=== PATIENT | male | born 1935 | race African-American/Black ===

== ENCOUNTER 2017-12-13 21:20 | Inpatient (IN) | payer MEDICARE, MEDICAID ==
[~2017-12-13] VITALS: Ht 185.4 cm; Wt 108.0 kg
[~2017-12-13 21:20] MED LIST: BIMA2.5D4 EACHEYE; CHOL200010 PO; CLON0.1T PO; CYCL30DR EACHEYE; DOCU-150 PO; DONE5TAB7 PO; DOXA4TAB3 PO; DUTA0.5C2 PO; FERR-63 PO; GABA600T PO; HYDR100T26 PO; INSU100I19 SQ; LIDO700A TP; LORA-249 PO; NATE60TA PO; NIFE90TA43 PO; OMEP20TA2 PO; OMEP40CA34 PO; OXYC-100 GT; PREG75CA PO
[2017-12-13] MEDS ORDERED: NITROGLYCERIN 0.4MG TABLET SL SL PRN (22:15)
[2017-12-13] MEDS ORDERED: ASPIRIN 81MG TABLET PO ONE (22:15)
[2017-12-13 23:30] LABS: BASOPHILS % 0.5 % (0.0-2.0); EOSINOPHILS % 2.5 % (0.0-5.0); HEMATOCRIT. 34.3 % (42.0-52.0); HEMOGLOBIN. 11.4 g/dL (14.0-18.0); LYMPHOCYTES % 28.6 % (20.0-50.0); MEAN CORPUSCULAR HEMOGLOBIN 29.2 pg (28.0-32.0); MEAN CORPUSCULAR VOLUME 88.1 fL (80.0-94.0); MEAN PLATELET VOLUME 8.9 fl (7.4-10.4); NEUTROPHILS % 59.4 % (40.0-76.0); PLATELET 139 x1000/uL (130-400); RED BLOOD CELL COUNT 3.89 mill/uL (4.7-6.1); RED CELL DISTRIBUTION WIDTH 15.6 % (11.6-14.6)
[2017-12-13 23:44] LABS: CHLORIDE 108 mEq/L (98-107)
[2017-12-13] MEDS ORDERED: KETOROLAC 15MG/ML VIAL IV ONE (23:45)
[2017-12-14 03:20] VITALS: BP 136/50
[2017-12-14 04:00] VITALS: BP 136/50
[2017-12-14] MEDS ORDERED: DEXTROSE 50% WATER 50ML SYRINGE IV PRN ×2 (06:00→07:45)
[2017-12-14] MEDS ORDERED: HYDROCODONE/ACETAMINOPHEN 10/325MG TABLET PO PRN (06:00)
[2017-12-14] MEDS: BLOOD SUGAR DIAGNOSTIC STRIP TEST SCH ×4 (07:40→20:11)
[2017-12-14] MEDS ORDERED: BLOOD SUGAR DIAGNOSTIC STRIP TEST SCH (07:40)
[2017-12-14 08:00] VITALS: BP 161/70
[2017-12-14] MEDS: INSULIN LISPRO 100 UNITS/ML SUBCUT SCH ×4 (08:10→20:14)
[2017-12-14] MEDS: ENOXAPARIN 40MG/0.4ML SYR SUBCUT SCH (09:23)
[2017-12-14] MEDS ORDERED: OXYCODONE HCL 10MG TABLET SR 12HR PO PRN (11:45)
[2017-12-14 12:00] VITALS: BP 154/67
[2017-12-14] MEDS: NIFEDIPINE XL 90MG TAB PO SCH (12:30)
[2017-12-14] MEDS: OXYCODONE HCL 5MG TABLET PO PRN (13:19)
[2017-12-14 16:00] VITALS: BP 157/73
[2017-12-14] MEDS: GABAPENTIN 300MG CAPSULE PO SCH ×2 (16:08→20:10)
[2017-12-14 20:00] VITALS: BP 153/64
[2017-12-14] MEDS: HYDRALAZINE HCL 25MG TABLET PO SCH (20:11)
[2017-12-15] VITALS: BP 157/66
[2017-12-15] MEDS: GABAPENTIN 300MG CAPSULE PO SCH ×4 (03:56→21:17)
[2017-12-15 04:00] VITALS: BP 175/71
[2017-12-15] MEDS: BLOOD SUGAR DIAGNOSTIC STRIP TEST SCH ×4 (06:55→21:21)
[2017-12-15] MEDS: ENOXAPARIN 40MG/0.4ML SYR SUBCUT SCH (08:21)
[2017-12-15] MEDS: NIFEDIPINE XL 90MG TAB PO SCH (08:21)
[2017-12-15] MEDS: HYDRALAZINE HCL 25MG TABLET PO SCH ×2 (08:22→21:17)
[2017-12-15] MEDS: INSULIN LISPRO 100 UNITS/ML SUBCUT SCH ×4 (08:22→21:00)
[2017-12-15] MEDS: OXYCODONE HCL 5MG TABLET PO PRN ×2 (08:30→21:32)
[2017-12-15] MEDS ORDERED: REGADENOSON 0.4 MG/5 ML IV NR (11:00)
[2017-12-15 12:00] VITALS: BP 156/60
[2017-12-15] MEDS: ASPIRIN 81MG TABLET PO SCH (12:31)
[2017-12-15 16:00] VITALS: BP 135/62
[2017-12-15 20:10] VITALS: BP 134/66
[2017-12-15] MEDS ORDERED: ATORVASTATIN CALCIUM 40MG TABLET PO SCH (21:00)
[2017-12-16 00:11] VITALS: BP 146/67
[2017-12-16] MEDS: GABAPENTIN 300MG CAPSULE PO SCH ×2 (03:01→10:13)
[2017-12-16 04:20] VITALS: BP 133/65
[2017-12-16] MEDS: BLOOD SUGAR DIAGNOSTIC STRIP TEST SCH (06:18)
[2017-12-16 07:56] VITALS: BP 155/67
[2017-12-16] MEDS ORDERED: REGADENOSON 0.4 MG/5 ML IV ONE (08:58)
[2017-12-16] MEDS: HYDRALAZINE HCL 25MG TABLET PO SCH (10:12)
[2017-12-16] MEDS: ASPIRIN 81MG TABLET PO SCH (10:12)
[2017-12-16] MEDS: NIFEDIPINE XL 90MG TAB PO SCH (10:13)
[2017-12-16] MEDS: ENOXAPARIN 40MG/0.4ML SYR SUBCUT SCH (10:14)
[2017-12-16] MEDS: INSULIN LISPRO 100 UNITS/ML SUBCUT SCH (10:25)
[2017-12-16 12:35] VITALS: BP 141/66
[2017-12-16 12:38] VITALS: BP 141/66
== END 2017-12-16 13:48 | disposition home or self-care (01) | DRG 205 ==
LOC: ER 21:20 → 7WST 12-14 00:17 → EDBEDREQ 12-14 00:19 → ENRESERV 12-14 02:06
PROVIDERS: ADMIT Internal Medicine; ATTEND Internal Medicine
DX: M94.0 Chondrocostal junction syndrome [Tietze] (principal); I50.33 Acute on chronic diastolic (congestive) heart failure; E11.42 Type 2 diabetes mellitus with diabetic polyneuropathy; D64.9 Anemia, unspecified; E78.5 Hyperlipidemia, unspecified; I11.0 Hypertensive heart disease with heart failure; I25.10 Atherosclerotic heart disease of native coronary artery without angina pectoris; Z79.4 Long term (current) use of insulin; Z79.899 Other long term (current) drug therapy; Z79.1 Long term (current) use of non-steroidal anti-inflammatories (NSAID); Z79.2 Long term (current) use of antibiotics; N18.3 Chronic kidney disease, stage 3 (moderate)
CPT/HCPCS: 36415; 71045; 78452; 80053; 80061; 82962; 83880; 84484; 85025; 93005; 93017; 93306; 96374; 99285; A9500; J1650; J1815; J1885; J2785

== ENCOUNTER 2018-07-08 09:47 | Inpatient (IN) | payer MEDICARE, MEDICAID ==
[2018-07-08] VITALS (11 sets, daily range): BP systolic 149–176; BP diastolic 55–80
[~2018-07-08] VITALS: Ht 175.5 cm; Wt 117.2 kg
[2018-07-08 10:49] LABS: CLARITY URINE CLEAR (CLEAR); COLOR URINE YELLOW (YELLOW); KETONES URINE 1+ (NEGATIVE); LEUKOCYTE ESTERASE URINE NEGATIVE (NEGATIVE); NITRITE URINE NEGATIVE (NEGATIVE); OCCULT BLOOD URINE 2+ (NEGATIVE); PROTEIN URINE 4+ (NEGATIVE); SPECIFIC GRAVITY URINE 1.023 (1.005-1.030)
[2018-07-08 10:52] LABS: BG BASE EXCESS -6.5 mmol/L (-2.0-2.0); BG DEOXYHEMOGLOBIN 3.4 % (0.0-5.0); BG FRACTION INSPIRED OXYGEN 21; BG HCO3 ACT 17.9 mmol/L (22.0-26.0); BG METHEMOGLOBIN 0.2 % (0.0-1.5); BG OXYGEN SATURATION 96.6 % (92.0-98.5); BG OXYHEMOGLOBIN 95.4 % (94.0-97.0); BG PCO2 32.2 mmHg (35.0-45.0); BG PH 7.362 (7.350-7.450); BG PO2 89.5 mmHg (75.0-100.0); BG SAMPLE SITE RIGHT BRACHIAL; BG TOTAL HEMOGLOBIN 13.3 g/dL (12.0-18.0); BG VENT MODE ROOM AIR
[2018-07-08 11:20] LABS: METHADONE URINE SCREEN NEGATIVE (NEGATIVE); OPIATES URINE SCREEN NEGATIVE (NEGATIVE)
[2018-07-08 11:21] LABS: *AMPHETAMINES SCREEN URINE NEGATIVE (NEGATIVE); *BARBITURATES SCREEN URINE NEGATIVE (NEGATIVE); *COCAINE SCREEN URINE NEGATIVE (NEGATIVE); CANNABINOID URINE SCREEN NEGATIVE (NEGATIVE); PHENCYCLIDINE URINE SCREEN NEGATIVE (NEGATIVE)
[2018-07-08 11:22] LABS: BASOPHILS % 0.4 % (0.0-2.0); HEMATOCRIT. 38.4 % (42.0-52.0); HEMOGLOBIN. 12.8 g/dL (14.0-18.0); LYMPHOCYTES % 13.3 % (20.0-50.0); MEAN PLATELET VOLUME 9.1 fl (7.4-10.4); MONOCYTES % 8.8 % (2.0-8.0); NEUTROPHILS % 77.5 % (40.0-76.0); PLATELET 168 x1000/uL (130-400); RED BLOOD CELL COUNT 4.41 mill/uL (4.7-6.1); RED CELL DISTRIBUTION WIDTH 15.1 % (11.6-14.6)
[2018-07-08 11:22] LABS: *BENZODIAZEPINES SCREEN URINE NEGATIVE (NEGATIVE)
[2018-07-08 11:30] LABS: CHLORIDE 107 mEq/L (98-107)
[2018-07-08 11:33] LABS: ETHANOL BLOOD < 10 mg/dL
[2018-07-08 11:34] LABS: PROTHROMBIN TIME 10.7 sec (9.6-11.0)
[2018-07-08 11:37] LABS: CREATINE KINASE 415 IU/L (39-308)
[2018-07-08] MEDS ORDERED: VANCOMYCIN 1 G PREMIX 200 ML IV ONE (11:45)
[2018-07-08] MEDS ORDERED: PIPERACILLIN/TAZ 3.375G PREMIX 50 ML IV ONE (11:45)
[2018-07-08] MEDS ORDERED: SODIUM CHLORIDE 0.9% 1000ML BAG (SEPSIS BOLUS) IV ONE (11:45)
[2018-07-08] MEDS ORDERED: HYDRALAZINE 20MG/ML VIAL IV ONE (12:00)
[2018-07-08] MEDS ORDERED: LABETALOL 5MG/ML SYR 20 MG/4 ML SYRINGE IV SCH (13:45)
[2018-07-08] MEDS ORDERED: NICARDIPINE 50 MG in SODIUM CHLORIDE 0.9% 230 ML IV PRN (15:00)
[2018-07-08] MEDS ORDERED: NICARDIPINE 40MG/200ML PREMIX 200 ML IV NR ×2 (15:30→20:00)
[2018-07-08] MEDS ORDERED: DOCUSATE SODIUM 100MG CAPSULE PO PRN (17:00)
[2018-07-08] MEDS ORDERED: GUAIFENESIN 200MG/10ML SUGAR FREE UDC PO PRN (17:00)
[2018-07-08] MEDS ORDERED: IPRATROPIUM/ALBUTEROL 0.5-3(2.5)MG/3ML NEB INH PRN (17:00)
[2018-07-08] MEDS ORDERED: LORAZEPAM 2MG/ML CPJ IV PRN (17:00)
[2018-07-08] MEDS ORDERED: HYDROCODONE/ACETAMINOPHEN 5/325MG TABLET PO PRN (17:00)
[2018-07-08] MEDS ORDERED: DEXTROSE 50% WATER 50ML SYRINGE IV PRN (17:00)
[2018-07-08] MEDS ORDERED: HYDROMORPHONE HCL/PF 2MG/ML CPJ IV PRN (17:00)
[2018-07-08] MEDS ORDERED: ONDANSETRON HCL 4MG/2ML INJ IV PRN (17:00)
[2018-07-08] MEDS ORDERED: PIPERACILLIN/TAZ 3.375G PREMIX 50 ML IV SCH (17:00)
[2018-07-08 17:15] LABS: T4 FREE 1.34 ng/dL (0.76-1.46)
[2018-07-08 17:44] LABS: FOLIC ACID (FOLATE) SERUM >20 ng/mL ng/mL (>5.38)
[2018-07-08 17:55] LABS: VITAMIN B12 SERUM 534 pg/mL (211-911)
[2018-07-08] MEDS: BLOOD SUGAR DIAGNOSTIC STRIP TEST SCH ×2 (18:51→21:00)
[2018-07-08] MEDS: ENOXAPARIN 40MG/0.4ML SYR SUBCUT SCH (19:01)
[2018-07-08] MEDS: INSULIN LISPRO 100 UNITS/ML SUBCUT SCH ×2 (19:05→21:00)
[2018-07-08] MEDS: SODIUM CHLORIDE 0.9% INJ 3ML FLUSH IVF SCH (21:48)
[2018-07-08] MEDS: NICARDIPINE 50 MG in SODIUM CHLORIDE 0.9% 230 ML IV PRN (22:31)
[2018-07-08] MEDS: PIPERACILLIN/TAZ 2.25G PREMIX 50 ML IV SCH (22:36)
[2018-07-09] VITALS (73 sets, daily range): BP systolic 98–166; BP diastolic 39–125
[2018-07-09] MEDS: NICARDIPINE 50 MG in SODIUM CHLORIDE 0.9% 230 ML IV PRN ×2 (02:18→14:13)
[2018-07-09] MEDS: SODIUM CHLORIDE 0.9% INJ 3ML FLUSH IVF SCH ×3 (05:20→21:03)
[2018-07-09 06:02] LABS: BASOPHILS % 0.4 % (0.0-2.0); EOSINOPHILS % 0.5 % (0.0-5.0); HEMOGLOBIN. 11.9 g/dL (14.0-18.0); LYMPHOCYTES % 16.9 % (20.0-50.0); MEAN CORPUSCULAR HEMOGLOBIN 29.2 pg (28.0-32.0); MEAN CORPUSCULAR VOLUME 88.4 fL (80.0-94.0); MONOCYTES % 10.3 % (2.0-8.0); NEUTROPHILS % 71.9 % (40.0-76.0); RED BLOOD CELL COUNT 4.07 mill/uL (4.7-6.1); RED CELL DISTRIBUTION WIDTH 15.3 % (11.6-14.6)
[2018-07-09 06:13] LABS: CHLORIDE 113 mEq/L (98-107)
[2018-07-09] MEDS: PIPERACILLIN/TAZ 2.25G PREMIX 50 ML IV SCH ×3 (06:14→23:19)
[2018-07-09 06:26] LABS: CREATINE KINASE 474 IU/L (39-308); T4 FREE 1.28 ng/dL (0.76-1.46)
[2018-07-09 06:29] LABS: CREATINE KINASE MB FRACTION 7.8 ng/mL (0.5-3.6)
[2018-07-09] MEDS ORDERED: NIFEDIPINE XL 60MG TAB PO SCH (10:45)
[2018-07-09 11:40] LABS: MEAN PLATELET VOLUME 9.6 fl (7.4-10.4); PLATELET 128 x1000/uL (130-400)
[2018-07-09] MEDS: INSULIN LISPRO 100 UNITS/ML SUBCUT SCH ×2 (12:00→17:07)
[2018-07-09] MEDS: BLOOD SUGAR DIAGNOSTIC STRIP TEST SCH ×2 (12:00→18:53)
[2018-07-09] MEDS: AMLODIPINE 10MG TABLET PO SCH (13:11)
[2018-07-09] MEDS: SODIUM CHLORIDE 0.45% 1,000 ML IV SCH ×2 (13:13→21:03)
[2018-07-09] MEDS ORDERED: VANCOMYCIN 1 G PREMIX 200 ML IV NR (14:00)
[2018-07-09] MEDS: HYDRALAZINE HCL 50MG TABLET PO SCH ×2 (14:25→21:02)
[2018-07-09] MEDS: DOCUSATE SODIUM SUGAR FREE 100MG/10ML UDC PO SCH ×2 (14:26→17:00)
[2018-07-09] MEDS: ENOXAPARIN 40MG/0.4ML SYR SUBCUT SCH (18:53)
[2018-07-09] MEDS ORDERED: DOXAZOSIN MESYLATE 2MG TABLET PO SCH (21:00)
[2018-07-10] VITALS (33 sets, daily range): BP systolic 147–180; BP diastolic 59–109
[2018-07-10] MEDS: INSULIN LISPRO 100 UNITS/ML SUBCUT SCH ×5 (00:08→23:23)
[2018-07-10] MEDS: BLOOD SUGAR DIAGNOSTIC STRIP TEST SCH ×5 (00:09→23:11)
[2018-07-10] MEDS: HYDRALAZINE 20MG/ML VIAL IV PRN ×3 (02:48→21:29)
[2018-07-10] MEDS: SODIUM CHLORIDE 0.9% INJ 3ML FLUSH IVF SCH ×3 (05:47→22:00)
[2018-07-10 05:50] LABS: BASOPHILS % 0.6 % (0.0-2.0); EOSINOPHILS % 1.4 % (0.0-5.0); HEMATOCRIT. 33.7 % (42.0-52.0); HEMOGLOBIN. 11.1 g/dL (14.0-18.0); LYMPHOCYTES % 18.7 % (20.0-50.0); MEAN CORPUSCULAR HEMOGLOBIN 28.8 pg (28.0-32.0); MEAN CORPUSCULAR VOLUME 87.6 fL (80.0-94.0); MONOCYTES % 9.1 % (2.0-8.0); NEUTROPHILS % 70.2 % (40.0-76.0); PLATELET 133 x1000/uL (130-400); RED BLOOD CELL COUNT 3.84 mill/uL (4.7-6.1); RED CELL DISTRIBUTION WIDTH 15.5 % (11.6-14.6)
[2018-07-10] MEDS: HYDRALAZINE HCL 50MG TABLET PO SCH (05:55)
[2018-07-10] MEDS: PIPERACILLIN/TAZ 2.25G PREMIX 50 ML IV SCH ×3 (06:24→23:10)
[2018-07-10] MEDS: AMLODIPINE 10MG TABLET PO SCH (08:28)
[2018-07-10] MEDS: DOCUSATE SODIUM SUGAR FREE 100MG/10ML UDC PO SCH ×2 (08:28→16:58)
[2018-07-10] MEDS ORDERED: VANCOMYCIN 1250MG in DEXTROSE 5% WATER 250ML IV SCH ×2 (09:00→13:00)
[2018-07-10] MEDS: SODIUM CHLORIDE 0.45% 1,000 ML IV SCH ×5 (09:33→23:10)
[2018-07-10] MEDS: NEBIVOLOL HCL 5 MG TABLET PO SCH (10:23)
[2018-07-10] MEDS: ACETAMINOPHEN 325MG TABLET PO PRN (12:43)
[2018-07-10] MEDS: HYDRALAZINE HCL 100MG TABLET PO SCH ×2 (13:43→21:41)
[2018-07-10 15:10] LABS: ANTI-NUCLEAR ANTIBODIES DIRECT Negative (Negative)
[2018-07-10] MEDS: CLONIDINE 0.1MG TABLET PO PRN (16:58)
[2018-07-10] MEDS: ENOXAPARIN 40MG/0.4ML SYR SUBCUT SCH (16:59)
[2018-07-10] MEDS: DOXAZOSIN MESYLATE 2MG TABLET PO SCH (21:40)
[2018-07-11] VITALS (47 sets, daily range): BP systolic 128–178; BP diastolic 57–86
[2018-07-11] MEDS: CLONIDINE 0.1MG TABLET PO PRN (02:53)
[2018-07-11 05:43] LABS: BASOPHILS % 0.7 % (0.0-2.0); EOSINOPHILS % 2.1 % (0.0-5.0); HEMATOCRIT. 33.1 % (42.0-52.0); LYMPHOCYTES % 16.5 % (20.0-50.0); MEAN CORPUSCULAR HEMOGLOBIN 29.1 pg (28.0-32.0); MEAN CORPUSCULAR VOLUME 87.5 fL (80.0-94.0); MONOCYTES % 7.7 % (2.0-8.0); RED BLOOD CELL COUNT 3.78 mill/uL (4.7-6.1); RED CELL DISTRIBUTION WIDTH 15.5 % (11.6-14.6)
[2018-07-11] MEDS: HYDRALAZINE 20MG/ML VIAL IV PRN ×2 (05:47→11:37)
[2018-07-11] MEDS: SODIUM CHLORIDE 0.9% INJ 3ML FLUSH IVF SCH ×3 (05:47→21:41)
[2018-07-11] MEDS: HYDRALAZINE HCL 100MG TABLET PO SCH ×3 (05:47→21:41)
[2018-07-11] MEDS: BLOOD SUGAR DIAGNOSTIC STRIP TEST SCH ×4 (06:35→21:41)
[2018-07-11] MEDS: PIPERACILLIN/TAZ 2.25G PREMIX 50 ML IV SCH ×3 (06:42→22:21)
[2018-07-11] MEDS: INSULIN LISPRO 100 UNITS/ML SUBCUT SCH ×4 (06:43→21:49)
[2018-07-11 07:57] LABS: PLATELET 134 x1000/uL (130-400)
[2018-07-11 08:21] LABS: COMPLEMENT C3 117 mg/dL (82-167)
[2018-07-11] MEDS: DOCUSATE SODIUM SUGAR FREE 100MG/10ML UDC PO SCH ×3 (09:31→18:26)
[2018-07-11] MEDS: NEBIVOLOL HCL 5 MG TABLET PO SCH (09:31)
[2018-07-11] MEDS: AMLODIPINE 10MG TABLET PO SCH (09:32)
[2018-07-11] MEDS: ENOXAPARIN 40MG/0.4ML SYR SUBCUT SCH (18:26)
[2018-07-11] MEDS: NYSTATIN POWDER 15GM TOP SCH (18:27)
[2018-07-11] MEDS: DOXAZOSIN MESYLATE 2MG TABLET PO SCH (21:41)
[2018-07-12] VITALS (13 sets, daily range): BP systolic 139–167; BP diastolic 59–98
[2018-07-12] MEDS: PIPERACILLIN/TAZ 2.25G PREMIX 50 ML IV SCH ×3 (05:48→22:00)
[2018-07-12] MEDS: SODIUM CHLORIDE 0.9% INJ 3ML FLUSH IVF SCH ×3 (05:52→21:07)
[2018-07-12] MEDS: HYDRALAZINE HCL 100MG TABLET PO SCH ×3 (05:53→20:49)
[2018-07-12] MEDS: BLOOD SUGAR DIAGNOSTIC STRIP TEST SCH ×4 (08:00→20:42)
[2018-07-12] MEDS: AMLODIPINE 10MG TABLET PO SCH (08:00)
[2018-07-12] MEDS: DOCUSATE SODIUM SUGAR FREE 100MG/10ML UDC PO SCH ×2 (09:00→17:38)
[2018-07-12] MEDS: NYSTATIN POWDER 15GM TOP SCH ×3 (09:00→18:14)
[2018-07-12] MEDS: INSULIN LISPRO 100 UNITS/ML SUBCUT SCH ×4 (09:16→21:05)
[2018-07-12] MEDS: NEBIVOLOL HCL 5 MG TABLET PO SCH (09:18)
[2018-07-12] MEDS: CLONIDINE 0.1MG TABLET PO PRN (11:17)
[2018-07-12] MEDS ORDERED: VANCOMYCIN 1 G PREMIX 200 ML IV SCH (12:00)
[2018-07-12] MEDS: ENOXAPARIN 40MG/0.4ML SYR SUBCUT SCH (17:39)
[2018-07-12] MEDS: MAGNESIUM/ALUMINUM HYDROXIDE/SIMETHICONE 30ML UDC PO PRN (18:11)
[2018-07-12] MEDS: DOXAZOSIN MESYLATE 2MG TABLET PO SCH (20:43)
[2018-07-13] VITALS (12 sets, daily range): BP systolic 132–161; BP diastolic 54–78
[2018-07-13] MEDS: SODIUM CHLORIDE 0.9% INJ 3ML FLUSH IVF SCH ×3 (06:16→21:18)
[2018-07-13] MEDS: PIPERACILLIN/TAZ 2.25G PREMIX 50 ML IV SCH ×3 (06:16→22:55)
[2018-07-13 06:38] LABS: BASOPHILS % 0.5 % (0.0-2.0); EOSINOPHILS % 4.5 % (0.0-5.0); HEMATOCRIT. 31.4 % (42.0-52.0); HEMOGLOBIN. 10.4 g/dL (14.0-18.0); MEAN CORPUSCULAR VOLUME 87.1 fL (80.0-94.0); MEAN PLATELET VOLUME 8.9 fl (7.4-10.4); MONOCYTES % 9.4 % (2.0-8.0); NEUTROPHILS % 62.6 % (40.0-76.0); PLATELET 143 x1000/uL (130-400); RED CELL DISTRIBUTION WIDTH 15.5 % (11.6-14.6)
[2018-07-13] MEDS: INSULIN LISPRO 100 UNITS/ML SUBCUT SCH ×4 (07:30→21:26)
[2018-07-13] MEDS: HYDRALAZINE HCL 100MG TABLET PO SCH ×3 (07:47→22:55)
[2018-07-13] MEDS: BLOOD SUGAR DIAGNOSTIC STRIP TEST SCH ×4 (08:09→21:18)
[2018-07-13] MEDS: AMLODIPINE 10MG TABLET PO SCH (08:11)
[2018-07-13] MEDS: NEBIVOLOL HCL 5 MG TABLET PO SCH ×2 (08:11→21:18)
[2018-07-13] MEDS: NYSTATIN POWDER 15GM TOP SCH ×3 (08:12→17:33)
[2018-07-13] MEDS: DOCUSATE SODIUM SUGAR FREE 100MG/10ML UDC PO SCH ×2 (08:12→09:00)
[2018-07-13] MEDS: DOCUSATE SODIUM 100MG CAPSULE PO SCH (17:33)
[2018-07-13] MEDS: ENOXAPARIN 40MG/0.4ML SYR SUBCUT SCH (17:33)
[2018-07-13] MEDS: DOXAZOSIN MESYLATE 2MG TABLET PO SCH (21:17)
[2018-07-13] MEDS: ACETAMINOPHEN 325MG TABLET PO PRN (21:29)
[2018-07-13] MEDS: VANCOMYCIN 1 G PREMIX 200 ML IV SCH (22:56)
[2018-07-14] VITALS (12 sets, daily range): BP systolic 98–160; BP diastolic 59–75
[2018-07-14] MEDS: CLONIDINE 0.1MG TABLET PO PRN (05:28)
[2018-07-14] MEDS: HYDRALAZINE HCL 100MG TABLET PO SCH ×3 (06:33→21:58)
[2018-07-14] MEDS: PIPERACILLIN/TAZ 2.25G PREMIX 50 ML IV SCH ×3 (06:33→22:34)
[2018-07-14] MEDS: SODIUM CHLORIDE 0.9% INJ 3ML FLUSH IVF SCH ×2 (06:34→22:01)
[2018-07-14] MEDS: BLOOD SUGAR DIAGNOSTIC STRIP TEST SCH ×4 (07:39→21:59)
[2018-07-14] MEDS: NEBIVOLOL HCL 5 MG TABLET PO SCH ×2 (08:13→21:00)
[2018-07-14] MEDS: DOCUSATE SODIUM 100MG CAPSULE PO SCH ×2 (08:16→17:38)
[2018-07-14 08:17] LABS: BASOPHILS % 1.1 % (0.0-2.0); EOSINOPHILS % 5.2 % (0.0-5.0); HEMOGLOBIN. 10.4 g/dL (14.0-18.0); LYMPHOCYTES % 28.3 % (20.0-50.0); MEAN CORPUSCULAR HEMOGLOBIN 29.2 pg (28.0-32.0); MEAN CORPUSCULAR VOLUME 86.8 fL (80.0-94.0); MONOCYTES % 9.7 % (2.0-8.0); NEUTROPHILS % 55.7 % (40.0-76.0); PLATELET 140 x1000/uL (130-400); RED BLOOD CELL COUNT 3.57 mill/uL (4.7-6.1); RED CELL DISTRIBUTION WIDTH 15.3 % (11.6-14.6)
[2018-07-14] MEDS: AMLODIPINE 10MG TABLET PO SCH (08:17)
[2018-07-14] MEDS: INSULIN LISPRO 100 UNITS/ML SUBCUT SCH ×4 (08:22→22:00)
[2018-07-14] MEDS: NYSTATIN POWDER 15GM TOP SCH ×3 (10:44→17:45)
[2018-07-14] MEDS: ENOXAPARIN 40MG/0.4ML SYR SUBCUT SCH (17:38)
[2018-07-14] MEDS: DOXAZOSIN MESYLATE 2MG TABLET PO SCH (21:00)
[2018-07-15] VITALS (9 sets, daily range): BP systolic 140–159; BP diastolic 66–77
[2018-07-15] MEDS: MAGNESIUM/ALUMINUM HYDROXIDE/SIMETHICONE 30ML UDC PO PRN ×2 (05:03→09:48)
[2018-07-15] MEDS: HYDRALAZINE HCL 100MG TABLET PO SCH ×2 (05:04→14:33)
[2018-07-15] MEDS: SODIUM CHLORIDE 0.9% INJ 3ML FLUSH IVF SCH ×2 (05:05→14:00)
[2018-07-15 06:15] LABS: BASOPHILS % 0.6 % (0.0-2.0); HEMOGLOBIN. 10.3 g/dL (14.0-18.0); LYMPHOCYTES % 22.7 % (20.0-50.0); MEAN CORPUSCULAR HEMOGLOBIN 28.8 pg (28.0-32.0); MEAN CORPUSCULAR VOLUME 86.5 fL (80.0-94.0); MEAN PLATELET VOLUME 8.9 fl (7.4-10.4); MONOCYTES % 9.2 % (2.0-8.0); NEUTROPHILS % 62.5 % (40.0-76.0); PLATELET 158 x1000/uL (130-400); RED BLOOD CELL COUNT 3.58 mill/uL (4.7-6.1); RED CELL DISTRIBUTION WIDTH 15.1 % (11.6-14.6)
[2018-07-15] MEDS: PIPERACILLIN/TAZ 2.25G PREMIX 50 ML IV SCH (07:02)
[2018-07-15] MEDS: BLOOD SUGAR DIAGNOSTIC STRIP TEST SCH ×2 (08:01→13:00)
[2018-07-15] MEDS: DOCUSATE SODIUM 100MG CAPSULE PO SCH (09:39)
[2018-07-15] MEDS: AMLODIPINE 10MG TABLET PO SCH (09:41)
[2018-07-15] MEDS: NYSTATIN POWDER 15GM TOP SCH ×2 (09:41→13:51)
[2018-07-15] MEDS: INSULIN LISPRO 100 UNITS/ML SUBCUT SCH ×2 (09:43→13:50)
[2018-07-15] MEDS: NEBIVOLOL HCL 5 MG TABLET PO SCH (09:47)
[2018-07-15] MEDS: VANCOMYCIN 1 G PREMIX 200 ML IV SCH (11:16)
== END 2018-07-15 15:30 | disposition home or self-care (01) | DRG 871 ==
LOC: ER 09:54 → EDBEDREQTM 13:35 → EDBEDREQSVC 13:35 → EDBEDREQ 13:35 → CVICU 13:44 → EDBEDREQSVC 13:51 → EDBEDREQ 13:51 → ENRESERV 15:49 → CANRESERV 15:49 → EDBEDREQTM 16:59 → EDBEDREQSVC 16:59 → ENRESERV 20:48 → CVICU 21:51 → 5EST 07-11 13:05
PROVIDERS: ADMIT Internal Medicine; ATTEND Internal Medicine
PROC: 4B02XSZ Measurement of Cardiac Pacemaker, External Approach (ICD-10-PCS; principal; 2018-07-09)
PROC: 4A00X4Z Measurement of Central Nervous Electrical Activity, External Approach (ICD-10-PCS; 2018-07-09)
DX: A41.9 Sepsis, unspecified organism (principal); N17.0 Acute kidney failure with tubular necrosis; G92 Toxic encephalopathy; I63.9 Cerebral infarction, unspecified; M62.82 Rhabdomyolysis; I50.40 Unspecified combined systolic (congestive) and diastolic (congestive) heart failure; E44.0 Moderate protein-calorie malnutrition; E87.2 Acidosis; I13.0 Hypertensive heart and chronic kidney disease with heart failure and stage 1 through stage 4 chronic kidney disease, or unspecified chronic kidney disease; N18.4 Chronic kidney disease, stage 4 (severe); I16.0 Hypertensive urgency; E11.22 Type 2 diabetes mellitus with diabetic chronic kidney disease; E11.40 Type 2 diabetes mellitus with diabetic neuropathy, unspecified; E86.9 Volume depletion, unspecified; F02.80 Dementia in other diseases classified elsewhere, unspecified severity, without behavioral disturbance, psychotic disturbance, mood disturbance, and anxiety; E86.0 Dehydration; G20 Parkinson's disease; H40.9 Unspecified glaucoma; I25.10 Atherosclerotic heart disease of native coronary artery without angina pectoris; I48.0 Paroxysmal atrial fibrillation; K21.9 Gastro-esophageal reflux disease without esophagitis; N40.0 Benign prostatic hyperplasia without lower urinary tract symptoms; Z95.0 Presence of cardiac pacemaker; Z79.4 Long term (current) use of insulin; Z79.899 Other long term (current) drug therapy
CPT/HCPCS: 36415; 36600; 71045; 74176; 80048; 80202; 80305; 80307; 80320; 80329; 82140; 82375; 82550; 82553; 82570; 82607; 82746; 82805; 82962; 83036; 83605; 83735; 83880; 84134; 84145; 84156; 84439; 84443; 84481; 84484; 86038; 86160; 92610; 93005; 93306; 93970; 96365; 96366; 96367; 96375; 97116; 97163; 97166; 97530; 99291; J0360; J1650; J1815; J2543; J3370; J3490; J7030; J7050; J7060; G0480

== ENCOUNTER 2018-10-09 09:53 | Inpatient (IN) | payer MEDICARE, MEDICAID ==
[~2018-10-09] VITALS: Ht 172.7 cm; Wt 133.8 kg
[2018-10-09] VITALS (30 sets, daily range): BP systolic 84–168; BP diastolic 49–99
[2018-10-09] MEDS ORDERED: SODIUM CHLORIDE 0.9% 1000ML BAG (SEPSIS BOLUS) IV ONE (10:15)
[2018-10-09 10:39] LABS: CHLORIDE 107 mEq/L (98-107); INR 1.2; PROTHROMBIN TIME 12.3 sec (9.6-11.0)
[2018-10-09 10:43] LABS: ETHANOL BLOOD < 10 mg/dL
[2018-10-09] MEDS ORDERED: PIPERACILLIN/TAZOBACTAM 3.375GM/50ML PREMIX IV ONE (10:45)
[2018-10-09 10:50] LABS: BG BASE EXCESS -6.4 mmol/L (-2.0-2.0); BG CARBOXYHEMOGLOBIN 0.6 % (0.5-1.5); BG DEOXYHEMOGLOBIN 6.1 % (0.0-5.0); BG FRACTION INSPIRED OXYGEN 28; BG HCO3 ACT 15.6 mmol/L (22.0-26.0); BG METHEMOGLOBIN 0.2 % (0.0-1.5); BG OXYGEN SATURATION 93.9 % (92.0-98.5); BG OXYHEMOGLOBIN 93.1 % (94.0-97.0); BG PCO2 22.4 mmHg (35.0-45.0); BG PO2 65.6 mmHg (75.0-100.0); BG SAMPLE SITE LEFT BRACHIAL; BG VENT MODE NASAL CANNULA
[2018-10-09 10:52] LABS: BASOPHILS % 0.2 % (0.0-2.0); HEMATOCRIT. 37.3 % (42.0-52.0); HEMOGLOBIN. 12.8 g/dL (14.0-18.0); LYMPHOCYTES % 9.4 % (20.0-50.0); MEAN CORPUSCULAR HEMOGLOBIN 30.3 pg (28.0-32.0); MEAN CORPUSCULAR VOLUME 88.3 fL (80.0-94.0); MONOCYTES % 7.9 % (2.0-8.0); NEUTROPHILS % 82.5 % (40.0-76.0); RED BLOOD CELL COUNT 4.23 mill/uL (4.7-6.1)
[2018-10-09] MEDS: LEVOFLOXACIN 750MG PREMIX 150 ML IV ONE ×2 (10:54→11:22)
[2018-10-09] MEDS ORDERED: IPRATROPIUM/ALBUTEROL 0.5-3(2.5)MG/3ML NEB HHN ONE (11:00)
[2018-10-09] MEDS ORDERED: METHYLPREDNISOLONE SOD SUCC 125 MG/2 ML VIAL IV ONE (11:00)
[2018-10-09 11:11] LABS: PLATELET 185 x1000/uL (130-400)
[2018-10-09] MEDS ORDERED: PIPERACILLIN/TAZ 2.25G PREMIX 50 ML IV ONE (11:15)
[2018-10-09 11:24] LABS: CLARITY URINE CLEAR (CLEAR); COLOR URINE YELLOW (YELLOW); KETONES URINE NEGATIVE (NEGATIVE); LEUKOCYTE ESTERASE URINE NEGATIVE (NEGATIVE); NITRITE URINE NEGATIVE (NEGATIVE); OCCULT BLOOD URINE NEGATIVE (NEGATIVE); PROTEIN URINE 3+ (NEGATIVE); SPECIFIC GRAVITY URINE 1.016 (1.005-1.030); UROBILINOGEN URINE 0.2 E.U./dL (0.2-1.0)
[2018-10-09 12:18] LABS: *AMPHETAMINES SCREEN URINE NEGATIVE (NEGATIVE); CANNABINOID URINE SCREEN NEGATIVE (NEGATIVE); METHADONE URINE SCREEN NEGATIVE (NEGATIVE); OPIATES URINE SCREEN NEGATIVE (NEGATIVE); PHENCYCLIDINE URINE SCREEN NEGATIVE (NEGATIVE)
[2018-10-09 12:19] LABS: *BARBITURATES SCREEN URINE NEGATIVE (NEGATIVE)
[2018-10-09 12:20] LABS: *BENZODIAZEPINES SCREEN URINE NEGATIVE (NEGATIVE)
[2018-10-09 12:21] LABS: *COCAINE SCREEN URINE NEGATIVE (NEGATIVE)
[2018-10-09] MEDS ORDERED: ACETAMINOPHEN 650MG SUPP PR PRN (14:45)
[2018-10-09] MEDS ORDERED: SODIUM BICARBONATE 8.4% 1 MEQ/ML 50ML SYR IV ONE (15:15)
[2018-10-09 15:18] LABS: BG BASE EXCESS -11.6 mmol/L (-2.0-2.0); BG CARBOXYHEMOGLOBIN 0.7 % (0.5-1.5); BG DEOXYHEMOGLOBIN 4.3 % (0.0-5.0); BG FRACTION INSPIRED OXYGEN 32; BG HCO3 ACT 12.8 mmol/L (22.0-26.0); BG METHEMOGLOBIN 0.1 % (0.0-1.5); BG OXYGEN SATURATION 95.7 % (92.0-98.5); BG OXYHEMOGLOBIN 94.9 % (94.0-97.0); BG PCO2 25.2 mmHg (35.0-45.0); BG PH 7.324 (7.350-7.450); BG PO2 79.5 mmHg (75.0-100.0); BG SAMPLE SITE LEFT BRACHIAL; BG TOTAL HEMOGLOBIN 11.5 g/dL (12.0-18.0); BG VENT MODE NASAL CANNULA
[2018-10-09] MEDS ORDERED: ONDANSETRON HCL 4MG/2ML INJ IV PRN (15:45)
[2018-10-09] MEDS ORDERED: LORAZEPAM 2MG/ML CPJ IV PRN (15:45)
[2018-10-09] MEDS ORDERED: GUAIFENESIN 200MG/10ML SUGAR FREE UDC PO PRN (15:45)
[2018-10-09] MEDS ORDERED: DOCUSATE SODIUM 100MG CAPSULE PO PRN (15:45)
[2018-10-09] MEDS ORDERED: DIPHENHYDRAMINE 50MG/ML VIAL IV PRN (15:45)
[2018-10-09] MEDS ORDERED: MAGNESIUM/ALUMINUM HYDROXIDE/SIMETHICONE 30ML UDC PO PRN (15:45)
[2018-10-09] MEDS ORDERED: HYDROMORPHONE HCL/PF 2MG/ML CPJ IV PRN (15:45)
[2018-10-09] MEDS ORDERED: ENOXAPARIN 30MG/0.3ML SYR SUBCUT SCH (17:00)
[2018-10-09] MEDS ORDERED: DEXTROSE 50% WATER 50ML SYRINGE IV PRN (17:30)
[2018-10-09] MEDS: BLOOD SUGAR DIAGNOSTIC STRIP TEST SCH ×2 (17:50→20:41)
[2018-10-09] MEDS ORDERED: PIPERACILLIN/TAZOBACTAM 2.25 G in DEXT 5% WATER 100 ML IV SCH (18:00)
[2018-10-09] MEDS ORDERED: VANCOMYCIN 1500MG in DEXTROSE 5% WATER 250ML IV SCH (18:00)
[2018-10-09] MEDS: PROPOFOL 10MG/ML 100ML 100 ML IV PRN ×2 (18:24→21:23)
[2018-10-09] MEDS ORDERED: SODIUM BICARBONATE 100 MEQ in DEXT 5%/0.2% NACL 1,000 ML IV SCH (18:30)
[2018-10-09] MEDS: INSULIN LISPRO 100 UNITS/ML SUBCUT SCH ×2 (18:56→20:41)
[2018-10-09 19:01] LABS: BG BASE EXCESS -12.3 mmol/L (-2.0-2.0); BG CARBOXYHEMOGLOBIN 0.3 % (0.5-1.5); BG DEOXYHEMOGLOBIN 5.2 % (0.0-5.0); BG FRACTION INSPIRED OXYGEN 60; BG METHEMOGLOBIN 0.4 % (0.0-1.5); BG OXYGEN SATURATION 94.8 % (92.0-98.5); BG OXYHEMOGLOBIN 94.1 % (94.0-97.0); BG PCO2 45.3 mmHg (35.0-45.0); BG PH 7.165 (7.350-7.450); BG PO2 87.5 mmHg (75.0-100.0); BG SAMPLE SITE RIGHT RADIAL; BG TIDAL VOLUME(mL) 550 mL; BG TOTAL HEMOGLOBIN 12.8 g/dL (12.0-18.0); BG VENT MODE VENT - A/C; BG VENT RATE 14 set
[2018-10-09] MEDS ORDERED: SODIUM BICARBONATE 8.4% 1 MEQ/ML 50ML SYR IV NR (19:15)
[2018-10-09] MEDS: IPRATROPIUM BROMIDE (0.02%) 0.5MG/2.5ML NEB HHN SCH (20:06)
[2018-10-09 20:57] LABS: CREATINE KINASE 460 IU/L (39-308)
[2018-10-09] MEDS: SODIUM CHLORIDE 0.9% INJ 3ML FLUSH IVF SCH (21:55)
[2018-10-09] MEDS: PIPERACILLIN/TAZOBACTAM 2.25 G in DEXTROSE 5% WATER 50 ML IV SCH (23:18)
[2018-10-09 23:28] LABS: CREATINE KINASE MB FRACTION 4.3 ng/mL (0.5-3.6)
[2018-10-10] VITALS (97 sets, daily range): BP systolic 93–168; BP diastolic 50–108
[2018-10-10] MEDS ORDERED: PIPERACILLIN/TAZOBACTAM 2.25 G in DEXT 5% WATER 100 ML IV SCH ×2
[2018-10-10] MEDS: PROPOFOL 10MG/ML 100ML 100 ML IV PRN ×3 (01:42→08:17)
[2018-10-10] MEDS: IPRATROPIUM BROMIDE (0.02%) 0.5MG/2.5ML NEB HHN SCH ×4 (02:07→20:17)
[2018-10-10 05:02] LABS: HEMATOCRIT. 34.7 % (42.0-52.0); HEMOGLOBIN. 11.3 g/dL (14.0-18.0); MEAN CORPUSCULAR HEMOGLOBIN 29.2 pg (28.0-32.0); MEAN CORPUSCULAR VOLUME 89.6 fL (80.0-94.0); MEAN PLATELET VOLUME 9.2 fl (7.4-10.4); PLATELET 102 x1000/uL (130-400); RED BLOOD CELL COUNT 3.88 mill/uL (4.7-6.1); RED CELL DISTRIBUTION WIDTH 15.6 % (11.6-14.6)
[2018-10-10] MEDS: PIPERACILLIN/TAZOBACTAM 2.25 G in DEXTROSE 5% WATER 50 ML IV SCH ×3 (05:02→18:15)
[2018-10-10 05:04] LABS: CHLORIDE 105 mEq/L (98-107)
[2018-10-10 05:16] LABS: CREATINE KINASE MB FRACTION 4.1 ng/mL (0.5-3.6)
[2018-10-10 05:17] LABS: CREATINE KINASE 414 IU/L (39-308); PHOSPHORUS 2.7 mg/dL (2.5-4.9); T4 FREE 1.16 ng/dL (0.76-1.46)
[2018-10-10] MEDS: SODIUM CHLORIDE 0.9% INJ 3ML FLUSH IVF SCH ×3 (06:19→22:00)
[2018-10-10 07:16] LABS: PLATELET ESTIMATE DECREASED
[2018-10-10] MEDS: BLOOD SUGAR DIAGNOSTIC STRIP TEST SCH ×4 (07:50→21:00)
[2018-10-10] MEDS: INSULIN LISPRO 100 UNITS/ML SUBCUT SCH ×4 (08:51→21:50)
[2018-10-10] MEDS ORDERED: ENOXAPARIN 40MG/0.4ML SYR SUBCUT SCH (09:00)
[2018-10-10] MEDS ORDERED: MAGNESIUM 2 G PREMIX 50 ML IV SCH (10:00)
[2018-10-10 10:24] LABS: BG CARBOXYHEMOGLOBIN 0.3 % (0.5-1.5); BG DEOXYHEMOGLOBIN 2.4 % (0.0-5.0); BG FRACTION INSPIRED OXYGEN 60; BG HCO3 ACT 22.5 mmol/L (22.0-26.0); BG METHEMOGLOBIN 0.1 % (0.0-1.5); BG OXYGEN SATURATION 97.6 % (92.0-98.5); BG OXYHEMOGLOBIN 97.2 % (94.0-97.0); BG PCO2 37.1 mmHg (35.0-45.0); BG SAMPLE SITE RIGHT RADIAL; BG TIDAL VOLUME(mL) 550 mL; BG TOTAL HEMOGLOBIN 11.4 g/dL (12.0-18.0); BG VENT MODE VENT - A/C; BG VENT RATE 20 set
[2018-10-10] MEDS ORDERED: LIDOCAINE HCL 1% 20ML VIAL (Pyxis) INJ ONE ×2 (10:29→12:42)
[2018-10-10] MEDS: PANTOPRAZOLE SODIUM 40 MG/VIAL IV SCH (10:51)
[2018-10-10] MEDS: SODIUM BICARBONATE 50 MEQ in DEXT 5%/0.2% NACL 1,000 ML IV SCH ×2 (10:52→21:41)
[2018-10-10] MEDS ORDERED: VANCOMYCIN 500 MG PREMIX 100 ML IV SCH (11:00)
[2018-10-10] MEDS: MIDAZOLAM HCL 50 MG in DEXTROSE 5% WATER 40 ML IV PRN ×2 (12:32→23:27)
[2018-10-10] MEDS ORDERED: HEPARIN 1000 UNITS/ML 10ML ONE (12:41)
[2018-10-10] MEDS ORDERED: SODIUM BICARBONATE 4% (2.4MEQ) 5ML VIAL IV ONE (12:41)
[2018-10-10] MEDS ORDERED: VANCOMYCIN 1 G PREMIX 200 ML IV SCH (13:00)
[2018-10-10] MEDS: FENTANYL CITRATE/PF 500 MCG in SODIUM CHLORIDE 0.9% 40 ML IV PRN (19:57)
[2018-10-11] VITALS (66 sets, daily range): BP systolic 96–158; BP diastolic 46–101
[2018-10-11] MEDS: PIPERACILLIN/TAZOBACTAM 2.25 G in DEXTROSE 5% WATER 50 ML IV SCH ×4 (00:50→17:16)
[2018-10-11] MEDS: IPRATROPIUM BROMIDE (0.02%) 0.5MG/2.5ML NEB HHN SCH ×4 (02:24→20:04)
[2018-10-11 05:48] LABS: HEMATOCRIT. 25.6 % (42.0-52.0); HEMOGLOBIN. 8.6 g/dL (14.0-18.0); MEAN CORPUSCULAR HEMOGLOBIN 29.3 pg (28.0-32.0); MEAN CORPUSCULAR VOLUME 86.9 fL (80.0-94.0); MEAN PLATELET VOLUME 8.8 fl (7.4-10.4); PLATELET 84 x1000/uL (130-400); RED BLOOD CELL COUNT 2.95 mill/uL (4.7-6.1); RED CELL DISTRIBUTION WIDTH 15.2 % (11.6-14.6)
[2018-10-11 05:49] LABS: CHLORIDE 101 mEq/L (98-107)
[2018-10-11 05:58] LABS: PHOSPHORUS 2.2 mg/dL (2.5-4.9)
[2018-10-11] MEDS: SODIUM CHLORIDE 0.9% INJ 3ML FLUSH IVF SCH ×3 (06:00→22:00)
[2018-10-11] MEDS: SODIUM BICARBONATE 50 MEQ in DEXT 5%/0.2% NACL 1,000 ML IV SCH (06:57)
[2018-10-11] MEDS: BLOOD SUGAR DIAGNOSTIC STRIP TEST SCH ×4 (07:50→21:55)
[2018-10-11 08:06] LABS: NUCLEATED RED BLOOD CELLS 1 /100 WBC
[2018-10-11 08:07] LABS: PLATELET ESTIMATE DECREASED
[2018-10-11] MEDS: INSULIN LISPRO 100 UNITS/ML SUBCUT SCH ×4 (08:20→22:10)
[2018-10-11] MEDS: PANTOPRAZOLE SODIUM 40 MG/VIAL IV SCH (09:02)
[2018-10-11 09:06] LABS: BG BASE EXCESS 4.3 mmol/L (-2.0-2.0); BG CARBOXYHEMOGLOBIN 0.3 % (0.5-1.5); BG DEOXYHEMOGLOBIN 1.7 % (0.0-5.0); BG FRACTION INSPIRED OXYGEN 40; BG HCO3 ACT 28.7 mmol/L (22.0-26.0); BG METHEMOGLOBIN 0.3 % (0.0-1.5); BG OXYGEN SATURATION 98.3 % (92.0-98.5); BG OXYHEMOGLOBIN 97.7 % (94.0-97.0); BG PCO2 42.7 mmHg (35.0-45.0); BG PH 7.446 (7.350-7.450); BG PO2 135.3 mmHg (75.0-100.0); BG SAMPLE SITE RIGHT RADIAL; BG TIDAL VOLUME(mL) 550 mL; BG VENT MODE VENT - A/C; BG VENT RATE 20 set
[2018-10-11] MEDS: MIDAZOLAM HCL 50 MG in DEXTROSE 5% WATER 40 ML IV PRN ×2 (10:46→21:19)
[2018-10-11] MEDS ORDERED: SODIUM PHOS,M-BASIC-D-BASIC 30 MM in DEXT 5% WATER 500 ML IV NR (13:30)
[2018-10-11] MEDS: DEXT 5%/0.9% NACL 1,000 ML IV SCH (13:54)
[2018-10-11] MEDS: IPRATROPIUM/ALBUTEROL 0.5-3(2.5)MG/3ML NEB HHN PRN (16:10)
[2018-10-11] MEDS: FENTANYL CITRATE/PF 500 MCG in SODIUM CHLORIDE 0.9% 40 ML IV PRN (19:13)
[2018-10-11] MEDS ORDERED: EPOETIN ALFA 10000UNITS/ML VIAL SUBCUT NR (21:00)
[2018-10-12] VITALS (72 sets, daily range): BP systolic 121–155; BP diastolic 61–96
[2018-10-12] MEDS: IPRATROPIUM BROMIDE (0.02%) 0.5MG/2.5ML NEB HHN SCH ×4 (00:30→20:10)
[2018-10-12] MEDS: PIPERACILLIN/TAZOBACTAM 2.25 G in DEXTROSE 5% WATER 50 ML IV SCH ×4 (00:49→18:29)
[2018-10-12] MEDS: IPRATROPIUM/ALBUTEROL 0.5-3(2.5)MG/3ML NEB HHN PRN (04:15)
[2018-10-12] MEDS: FENTANYL CITRATE/PF 500 MCG in SODIUM CHLORIDE 0.9% 40 ML IV PRN ×2 (04:39→17:01)
[2018-10-12 05:44] LABS: HEMATOCRIT. 24.8 % (42.0-52.0); HEMOGLOBIN. 8.4 g/dL (14.0-18.0); MEAN CORPUSCULAR HEMOGLOBIN 29.4 pg (28.0-32.0); MEAN CORPUSCULAR VOLUME 86.4 fL (80.0-94.0); MEAN PLATELET VOLUME 9.1 fl (7.4-10.4); PLATELET 82 x1000/uL (130-400); RED BLOOD CELL COUNT 2.87 mill/uL (4.7-6.1); RED CELL DISTRIBUTION WIDTH 15.1 % (11.6-14.6)
[2018-10-12] MEDS: SODIUM CHLORIDE 0.9% INJ 3ML FLUSH IVF SCH ×3 (06:00→21:09)
[2018-10-12] MEDS: BLOOD SUGAR DIAGNOSTIC STRIP TEST SCH ×4 (06:41→21:09)
[2018-10-12] MEDS: INSULIN LISPRO 100 UNITS/ML SUBCUT SCH ×4 (06:48→21:00)
[2018-10-12 07:35] LABS: PLATELET ESTIMATE DECREASED
[2018-10-12] MEDS: DEXT 5%/0.9% NACL 1,000 ML IV SCH (08:39)
[2018-10-12] MEDS: PANTOPRAZOLE SODIUM 40 MG/VIAL IV SCH (08:39)
[2018-10-12] MEDS: MIDAZOLAM HCL 50 MG in DEXTROSE 5% WATER 40 ML IV PRN ×2 (08:43→21:10)
[2018-10-12 09:11] LABS: BG BASE EXCESS 2.8 mmol/L (-2.0-2.0); BG CARBOXYHEMOGLOBIN 0.3 % (0.5-1.5); BG DEOXYHEMOGLOBIN 2.6 % (0.0-5.0); BG FRACTION INSPIRED OXYGEN 40; BG HCO3 ACT 26.5 mmol/L (22.0-26.0); BG METHEMOGLOBIN 0.1 % (0.0-1.5); BG OXYGEN SATURATION 97.4 % (92.0-98.5); BG PCO2 37.3 mmHg (35.0-45.0); BG PO2 96.5 mmHg (75.0-100.0); BG SAMPLE SITE RIGHT RADIAL; BG TIDAL VOLUME(mL) 550 mL; BG TOTAL HEMOGLOBIN 9.9 g/dL (12.0-18.0); BG VENT MODE VENT - A/C; BG VENT RATE 20 set
[2018-10-12] MEDS ORDERED: VANCOMYCIN 1250MG in DEXTROSE 5% WATER 250ML IV NR (12:00)
[2018-10-13] VITALS (101 sets, daily range): BP systolic 138–173; BP diastolic 54–121
[2018-10-13] MEDS: PIPERACILLIN/TAZOBACTAM 2.25 G in DEXTROSE 5% WATER 50 ML IV SCH ×2 (00:09→06:08)
[2018-10-13] MEDS: IPRATROPIUM BROMIDE (0.02%) 0.5MG/2.5ML NEB HHN SCH ×4 (02:07→20:35)
[2018-10-13] MEDS: HYDRALAZINE 20MG/ML VIAL IV PRN ×2 (03:34→13:11)
[2018-10-13] MEDS: DEXT 5%/0.9% NACL 1,000 ML IV SCH (03:39)
[2018-10-13 05:48] LABS: BASOPHILS % 0.1 % (0.0-2.0); EOSINOPHILS % 1.2 % (0.0-5.0); HEMATOCRIT. 29.1 % (42.0-52.0); HEMOGLOBIN. 9.8 g/dL (14.0-18.0); LYMPHOCYTES % 8.6 % (20.0-50.0); MEAN CORPUSCULAR HEMOGLOBIN 29.2 pg (28.0-32.0); MEAN PLATELET VOLUME 9.4 fl (7.4-10.4); MONOCYTES % 7.5 % (2.0-8.0); NEUTROPHILS % 82.6 % (40.0-76.0); PLATELET 92 x1000/uL (130-400); RED BLOOD CELL COUNT 3.35 mill/uL (4.7-6.1)
[2018-10-13] MEDS: FENTANYL CITRATE/PF 500 MCG in SODIUM CHLORIDE 0.9% 40 ML IV PRN ×2 (05:49→21:54)
[2018-10-13] MEDS: SODIUM CHLORIDE 0.9% INJ 3ML FLUSH IVF SCH ×3 (05:50→21:16)
[2018-10-13 06:24] LABS: PHOSPHORUS 3.7 mg/dL (2.5-4.9)
[2018-10-13] MEDS: INSULIN LISPRO 100 UNITS/ML SUBCUT SCH ×4 (08:17→21:16)
[2018-10-13] MEDS: BLOOD SUGAR DIAGNOSTIC STRIP TEST SCH ×4 (08:19→21:12)
[2018-10-13] MEDS: PANTOPRAZOLE SODIUM 40 MG/VIAL IV SCH (08:59)
[2018-10-13 09:03] LABS: BG BASE EXCESS 1.3 mmol/L (-2.0-2.0); BG CARBOXYHEMOGLOBIN 0.1 % (0.5-1.5); BG DEOXYHEMOGLOBIN 8.1 % (0.0-5.0); BG FRACTION INSPIRED OXYGEN 40; BG HCO3 ACT 25.8 mmol/L (22.0-26.0); BG METHEMOGLOBIN 0.2 % (0.0-1.5); BG OXYGEN SATURATION 91.9 % (92.0-98.5); BG OXYHEMOGLOBIN 91.6 % (94.0-97.0); BG PCO2 40.4 mmHg (35.0-45.0); BG PH 7.423 (7.350-7.450); BG PO2 61.6 mmHg (75.0-100.0); BG SAMPLE SITE RIGHT RADIAL; BG TIDAL VOLUME(mL) 550 mL; BG TOTAL HEMOGLOBIN 10.1 g/dL (12.0-18.0); BG VENT MODE VENT - A/C; BG VENT RATE 18 set
[2018-10-13] MEDS ORDERED: CLONIDINE HCL 0.2MG/24HR PATCH TD SCH (10:00)
[2018-10-13] MEDS ORDERED: DIATR MEGLU/DIATRIZOATE SOLN 30ML NG NR (11:30)
[2018-10-13] MEDS ORDERED: LACTULOSE 20G/30ML UDC PO NR (11:45)
[2018-10-13] MEDS ORDERED: BISACODYL 10MG SUPP PR PRN (11:45)
[2018-10-13] MEDS: CEFEPIME 1,000 MG in DEXTROSE 5% WATER 50 ML IV SCH (13:11)
[2018-10-13] MEDS: METRONIDAZOLE 500 MG PREMIX 100 ML IV SCH ×2 (14:29→23:28)
[2018-10-13] MEDS: MIDAZOLAM HCL 50 MG in DEXTROSE 5% WATER 40 ML IV PRN (15:26)
[2018-10-13] MEDS: DOCUSATE SODIUM SUGAR FREE 100MG/10ML UDC NG SCH (15:39)
[2018-10-13] MEDS ORDERED: LACTULOSE 20G/30ML UDC ONE (15:44)
[2018-10-14] VITALS (79 sets, daily range): BP systolic 137–190; BP diastolic 63–128
[2018-10-14] MEDS: DEXT 5%/0.9% NACL 1,000 ML IV SCH ×2 (00:02→18:29)
[2018-10-14] MEDS: IPRATROPIUM/ALBUTEROL 0.5-3(2.5)MG/3ML NEB HHN PRN (02:36)
[2018-10-14 05:40] LABS: BASOPHILS % 0.4 % (0.0-2.0); EOSINOPHILS % 1.2 % (0.0-5.0); HEMATOCRIT. 28.9 % (42.0-52.0); HEMOGLOBIN. 9.9 g/dL (14.0-18.0); LYMPHOCYTES % 12.6 % (20.0-50.0); MEAN CORPUSCULAR HEMOGLOBIN 29.8 pg (28.0-32.0); MEAN CORPUSCULAR VOLUME 87.4 fL (80.0-94.0); MEAN PLATELET VOLUME 9.4 fl (7.4-10.4); MONOCYTES % 13.2 % (2.0-8.0); NEUTROPHILS % 72.6 % (40.0-76.0); PLATELET 98 x1000/uL (130-400); RED CELL DISTRIBUTION WIDTH 15.7 % (11.6-14.6)
[2018-10-14 05:48] LABS: CHLORIDE 106 mEq/L (98-107)
[2018-10-14 05:59] LABS: PHOSPHORUS 3.2 mg/dL (2.5-4.9)
[2018-10-14] MEDS: SODIUM CHLORIDE 0.9% INJ 3ML FLUSH IVF SCH ×3 (06:08→21:28)
[2018-10-14] MEDS: HYDRALAZINE 20MG/ML VIAL IV PRN ×2 (06:11→15:16)
[2018-10-14 07:29] LABS: BG BASE EXCESS 1.4 mmol/L (-2.0-2.0); BG FRACTION INSPIRED OXYGEN 40; BG HCO3 ACT 25.3 mmol/L (22.0-26.0); BG PCO2 37.8 mmHg (35.0-45.0); BG PH 7.443 (7.350-7.450); BG PO2 98.3 mmHg (75.0-100.0); BG SAMPLE SITE RIGHT RADIAL; BG TIDAL VOLUME(mL) 550 mL; BG VENT MODE VENT - A/C; BG VENT RATE 18 set
[2018-10-14] MEDS: IPRATROPIUM BROMIDE (0.02%) 0.5MG/2.5ML NEB HHN SCH ×3 (08:23→20:16)
[2018-10-14] MEDS: BLOOD SUGAR DIAGNOSTIC STRIP TEST SCH ×4 (08:29→20:42)
[2018-10-14] MEDS: METRONIDAZOLE 500 MG PREMIX 100 ML IV SCH ×2 (08:51→20:46)
[2018-10-14] MEDS: PANTOPRAZOLE SODIUM 40 MG/VIAL IV SCH (08:51)
[2018-10-14] MEDS: INSULIN LISPRO 100 UNITS/ML SUBCUT SCH ×4 (08:52→20:47)
[2018-10-14] MEDS: DOCUSATE SODIUM SUGAR FREE 100MG/10ML UDC NG SCH (09:00)
[2018-10-14] MEDS: MIDAZOLAM HCL 50 MG in DEXTROSE 5% WATER 40 ML IV PRN (09:19)
[2018-10-14] MEDS: CLONIDINE 0.1MG TABLET PO PRN ×2 (09:24→18:15)
[2018-10-14] MEDS: FENTANYL CITRATE/PF 500 MCG in SODIUM CHLORIDE 0.9% 40 ML IV PRN (10:11)
[2018-10-14] MEDS ORDERED: CARVEDILOL 3.125 MG TABLET PO SCH (10:15)
[2018-10-14] MEDS: AMLODIPINE 5MG TABLET PO SCH ×2 (10:19→20:47)
[2018-10-14] MEDS ORDERED: VANCOMYCIN 1250MG in DEXTROSE 5% WATER 250ML IV SCH (11:30)
[2018-10-14] MEDS: CEFEPIME 1,000 MG in DEXTROSE 5% WATER 50 ML IV SCH (11:56)
[2018-10-14] MEDS ORDERED: CALCIUM GLUCONATE 1,000 MG in DEXT 5% WATER 90 ML IV SCH (12:00)
[2018-10-14 12:37] LABS: BG BASE EXCESS 1.7 mmol/L (-2.0-2.0); BG CARBOXYHEMOGLOBIN 0.3 % (0.5-1.5); BG DEOXYHEMOGLOBIN 3.4 % (0.0-5.0); BG FRACTION INSPIRED OXYGEN 40; BG HCO3 ACT 26.2 mmol/L (22.0-26.0); BG METHEMOGLOBIN 0.1 % (0.0-1.5); BG OXYGEN SATURATION 96.6 % (92.0-98.5); BG OXYHEMOGLOBIN 96.2 % (94.0-97.0); BG PCO2 40.9 mmHg (35.0-45.0); BG PH 7.425 (7.350-7.450); BG PO2 89.8 mmHg (75.0-100.0); BG PRESSURE SUPPORT 8; BG SAMPLE SITE RIGHT RADIAL; BG TOTAL HEMOGLOBIN 10.4 g/dL (12.0-18.0); BG VENT MODE VENT - CPAP
[2018-10-14] MEDS ORDERED: HYDROMORPHONE HCL/PF 2MG/ML CPJ IV PRN (12:45)
[2018-10-14] MEDS: HYDRALAZINE HCL 50MG TABLET PO SCH ×2 (13:10→21:28)
[2018-10-15] VITALS (32 sets, daily range): BP systolic 126–187; BP diastolic 62–88
[2018-10-15] MEDS: HYDRALAZINE 20MG/ML VIAL IV PRN ×2 (00:07→19:59)
[2018-10-15] MEDS: IPRATROPIUM BROMIDE (0.02%) 0.5MG/2.5ML NEB HHN SCH ×4 (01:51→20:32)
[2018-10-15] MEDS: SODIUM CHLORIDE 0.9% INJ 3ML FLUSH IVF SCH ×3 (05:57→22:37)
[2018-10-15 06:35] LABS: BASOPHILS % 0.2 % (0.0-2.0); CHLORIDE 110 mEq/L (98-107); EOSINOPHILS % 1.8 % (0.0-5.0); HEMATOCRIT. 27.7 % (42.0-52.0); HEMOGLOBIN. 9.3 g/dL (14.0-18.0); LYMPHOCYTES % 10.2 % (20.0-50.0); MEAN CORPUSCULAR HEMOGLOBIN 29.4 pg (28.0-32.0); MEAN CORPUSCULAR VOLUME 87.4 fL (80.0-94.0); MONOCYTES % 11.9 % (2.0-8.0); NEUTROPHILS % 75.9 % (40.0-76.0); PLATELET 137 x1000/uL (130-400); RED BLOOD CELL COUNT 3.17 mill/uL (4.7-6.1); RED CELL DISTRIBUTION WIDTH 15.3 % (11.6-14.6)
[2018-10-15 06:41] LABS: PHOSPHORUS 2.8 mg/dL (2.5-4.9)
[2018-10-15] MEDS: HYDRALAZINE HCL 50MG TABLET PO SCH (06:49)
[2018-10-15] MEDS: BLOOD SUGAR DIAGNOSTIC STRIP TEST SCH ×4 (08:09→21:11)
[2018-10-15] MEDS: DOCUSATE SODIUM SUGAR FREE 100MG/10ML UDC NG SCH (08:14)
[2018-10-15] MEDS: AMLODIPINE 5MG TABLET PO SCH ×2 (08:18→20:47)
[2018-10-15] MEDS: METRONIDAZOLE 500 MG PREMIX 100 ML IV SCH ×2 (08:18→20:49)
[2018-10-15] MEDS: PANTOPRAZOLE SODIUM 40 MG/VIAL IV SCH (08:18)
[2018-10-15] MEDS: INSULIN LISPRO 100 UNITS/ML SUBCUT SCH ×4 (08:27→21:21)
[2018-10-15] MEDS ORDERED: ERGOCALCIFEROL 50000UNITS CAPSULE NG SCH (09:30)
[2018-10-15] MEDS ORDERED: POTASSIUM CHLORIDE IV SCH (10:00)
[2018-10-15] MEDS ORDERED: NACL IV SCH (10:00)
[2018-10-15] MEDS ORDERED: DEXT IV SCH (10:00)
[2018-10-15] MEDS: MORPHINE SULFATE 2 MG/ML CPJ (NOT FOR IM USE) IV PRN ×3 (10:02→18:23)
[2018-10-15] MEDS ORDERED: KCL 20MEQ/100ML PREMIX 100 ML IV SCH (10:30)
[2018-10-15] MEDS ORDERED: CALCIUM GLUCONATE 1,000 MG in DEXT 5% WATER 90 ML IV SCH (11:00)
[2018-10-15] MEDS ORDERED: DIATR MEGLU/DIATRIZOATE SOLN 120ML ONE (11:17)
[2018-10-15] MEDS ORDERED: ERGOCALCIFEROL (VITAMIN D2) 8,000 UNIT/ML ORALSYR(NEO) NG SCH (12:00)
[2018-10-15] MEDS: CEFEPIME 1,000 MG in DEXTROSE 5% WATER 50 ML IV SCH (13:29)
[2018-10-15] MEDS: HYDROCODONE/ACETAMINOPHEN 5/325MG TABLET PO PRN (13:30)
[2018-10-15] MEDS: HYDRALAZINE HCL 100MG TABLET PO SCH ×2 (13:31→20:47)
[2018-10-15] MEDS: CLONIDINE 0.1MG TABLET PO SCH ×2 (13:31→22:36)
[2018-10-15] MEDS ORDERED: POTASSIUM CHLORIDE 20MEQ/PACKET NG NR (15:00)
[2018-10-15] MEDS: SUCRALFATE 1 G/10 ML UDC PO SCH ×2 (18:16→20:46)
[2018-10-15] MEDS ORDERED: DOXAZOSIN MESYLATE 2MG TABLET PO SCH (21:00)
[2018-10-16] VITALS (15 sets, daily range): BP systolic 151–177; BP diastolic 64–80
[2018-10-16] MEDS: IPRATROPIUM BROMIDE (0.02%) 0.5MG/2.5ML NEB HHN SCH ×4 (01:46→21:42)
[2018-10-16] MEDS: MORPHINE SULFATE 2 MG/ML CPJ (NOT FOR IM USE) IV PRN ×5 (03:54→22:55)
[2018-10-16] MEDS: HYDRALAZINE 20MG/ML VIAL IV PRN (03:54)
[2018-10-16] MEDS: CLONIDINE 0.1MG TABLET PO SCH ×3 (06:03→22:48)
[2018-10-16] MEDS: SODIUM CHLORIDE 0.9% INJ 3ML FLUSH IVF SCH ×3 (06:04→21:18)
[2018-10-16] MEDS: HYDRALAZINE HCL 100MG TABLET PO SCH ×3 (06:04→22:48)
[2018-10-16] MEDS: BLOOD SUGAR DIAGNOSTIC STRIP TEST SCH ×4 (07:30→21:18)
[2018-10-16] MEDS: SUCRALFATE 1 G/10 ML UDC PO SCH ×4 (07:32→21:16)
[2018-10-16] MEDS: DOCUSATE SODIUM SUGAR FREE 100MG/10ML UDC NG SCH (09:00)
[2018-10-16] MEDS: PANTOPRAZOLE 40MG DR TABLET PO SCH (09:33)
[2018-10-16] MEDS: NIFEDIPINE XL 90MG TAB PO SCH (09:33)
[2018-10-16] MEDS: INSULIN LISPRO 100 UNITS/ML SUBCUT SCH ×4 (09:35→21:55)
[2018-10-16] MEDS: METRONIDAZOLE 500 MG PREMIX 100 ML IV SCH ×2 (09:36→21:19)
[2018-10-16 09:50] LABS: BASOPHILS % 0.2 % (0.0-2.0); EOSINOPHILS % 1.7 % (0.0-5.0); HEMATOCRIT. 30.5 % (42.0-52.0); HEMOGLOBIN. 10.2 g/dL (14.0-18.0); LYMPHOCYTES % 8.8 % (20.0-50.0); MEAN CORPUSCULAR HEMOGLOBIN 29.1 pg (28.0-32.0); MEAN CORPUSCULAR VOLUME 86.9 fL (80.0-94.0); MEAN PLATELET VOLUME 8.9 fl (7.4-10.4); MONOCYTES % 9.5 % (2.0-8.0); NEUTROPHILS % 79.8 % (40.0-76.0); PLATELET 198 x1000/uL (130-400); RED BLOOD CELL COUNT 3.51 mill/uL (4.7-6.1); RED CELL DISTRIBUTION WIDTH 15.3 % (11.6-14.6)
[2018-10-16 10:19] LABS: CHLORIDE 110 mEq/L (98-107)
[2018-10-16 10:30] LABS: PHOSPHORUS 2.1 mg/dL (2.5-4.9)
[2018-10-16] MEDS: HYDROCODONE/ACETAMINOPHEN 5/325MG TABLET PO PRN (11:10)
[2018-10-16] MEDS: INSULIN GLARGINE UD 100 UNITS/ML SYR SUBCUT SCH (11:12)
[2018-10-16] MEDS ORDERED: ERGOCALCIFEROL 8000UNITS/ML 60ML NG SCH (12:00)
[2018-10-16] MEDS: CEFEPIME 1,000 MG in DEXTROSE 5% WATER 50 ML IV SCH (13:46)
[2018-10-16] MEDS: HYDROCODONE/ACETAMINOPHEN 10/325MG TABLET PO PRN (16:04)
[2018-10-16] MEDS: DOXAZOSIN MESYLATE 4MG TABLET PO SCH (21:17)
[2018-10-17] VITALS (12 sets, daily range): BP systolic 142–165; BP diastolic 64–84
[2018-10-17] MEDS: IPRATROPIUM BROMIDE (0.02%) 0.5MG/2.5ML NEB HHN SCH ×4 (01:50→20:40)
[2018-10-17] MEDS: MORPHINE SULFATE 2 MG/ML CPJ (NOT FOR IM USE) IV PRN ×4 (04:32→21:17)
[2018-10-17] MEDS: HYDRALAZINE HCL 100MG TABLET PO SCH ×3 (06:01→22:47)
[2018-10-17] MEDS: SUCRALFATE 1 G/10 ML UDC PO SCH ×4 (06:01→21:13)
[2018-10-17] MEDS: CLONIDINE 0.1MG TABLET PO SCH (06:01)
[2018-10-17] MEDS: PANTOPRAZOLE 40MG DR TABLET PO SCH (06:02)
[2018-10-17] MEDS: SODIUM CHLORIDE 0.9% INJ 3ML FLUSH IVF SCH ×3 (06:02→22:48)
[2018-10-17] MEDS: BLOOD SUGAR DIAGNOSTIC STRIP TEST SCH ×4 (08:15→21:40)
[2018-10-17] MEDS: DOCUSATE SODIUM SUGAR FREE 100MG/10ML UDC NG SCH (08:33)
[2018-10-17] MEDS: NIFEDIPINE XL 90MG TAB PO SCH (08:33)
[2018-10-17] MEDS: INSULIN LISPRO 100 UNITS/ML SUBCUT SCH ×4 (08:34→21:52)
[2018-10-17] MEDS: INSULIN GLARGINE UD 100 UNITS/ML SYR SUBCUT SCH (09:24)
[2018-10-17] MEDS ORDERED: FUROSEMIDE 40MG/4ML VIAL IVP NR (10:00)
[2018-10-17] MEDS: CALCIUM CARBONATE 500MG TABLET CHEW PO SCH ×2 (10:04→17:59)
[2018-10-17] MEDS ORDERED: INSULIN GLARGINE UD 100 UNITS/ML SYR SUBCUT SCH (11:00)
[2018-10-17] MEDS ORDERED: ERGOCALCIFEROL 50000UNITS CAPSULE PO SCH (12:00)
[2018-10-17] MEDS ORDERED: POLYETHYLENE GLYCOL 3350 (17GM) 1 DOSE PACK PO NR (12:30)
[2018-10-17] MEDS ORDERED: INSULIN GLARGINE UD 100 UNITS/ML SYR SUBCUT NR (13:30)
[2018-10-17] MEDS: CLONIDINE 0.2MG TABLET PO SCH ×2 (13:35→22:48)
[2018-10-17 14:18] LABS: EOSINOPHILS % 1.9 % (0.0-5.0); HEMATOCRIT. 28.7 % (42.0-52.0); HEMOGLOBIN. 9.8 g/dL (14.0-18.0); LYMPHOCYTES % 9.9 % (20.0-50.0); MEAN CORPUSCULAR HEMOGLOBIN 29.1 pg (28.0-32.0); MEAN CORPUSCULAR VOLUME 85.7 fL (80.0-94.0); MEAN PLATELET VOLUME 9.1 fl (7.4-10.4); MONOCYTES % 8.9 % (2.0-8.0); NEUTROPHILS % 78.3 % (40.0-76.0); PLATELET 197 x1000/uL (130-400); RED BLOOD CELL COUNT 3.35 mill/uL (4.7-6.1); RED CELL DISTRIBUTION WIDTH 15.2 % (11.6-14.6)
[2018-10-17 14:25] LABS: CHLORIDE 114 mEq/L (98-107)
[2018-10-17 14:30] LABS: PHOSPHORUS 1.9 mg/dL (2.5-4.9)
[2018-10-17] MEDS ORDERED: CALCIUM GLUCONATE 1,000 MG in DEXT 5% WATER 90 ML IV NR (17:30)
[2018-10-17] MEDS ORDERED: POTASSIUM PHOS,M-BASIC-D-BASIC 10 MMOL in DEXT 5% WATER 246.6667 ML IV NR ×2 (17:30→22:00)
[2018-10-17] MEDS: CLONIDINE 0.1MG TABLET PO PRN (18:33)
[2018-10-17] MEDS ORDERED: POTASSIUM CHLORIDE 20MEQ TABLET SR PO NR (19:00)
[2018-10-17] MEDS: DOXAZOSIN MESYLATE 4MG TABLET PO SCH (21:14)
[2018-10-17] MEDS: CARVEDILOL 3.125 MG TABLET PO SCH (21:15)
[2018-10-17] MEDS: NIFEDIPINE XL 60MG TAB PO SCH (21:16)
[2018-10-17] MEDS ORDERED: POTASSIUM PHOS,M-BASIC-D-BASIC 20 MMOL in DEXT 5% WATER 243.3333 ML IV NR (23:00)
[2018-10-17] MEDS: HYDROCODONE/ACETAMINOPHEN 10/325MG TABLET PO PRN (23:09)
[2018-10-18] VITALS (15 sets, daily range): BP systolic 117–168; BP diastolic 53–86
[2018-10-18] MEDS: IPRATROPIUM BROMIDE (0.02%) 0.5MG/2.5ML NEB HHN SCH ×4 (02:19→20:39)
[2018-10-18] MEDS: MORPHINE SULFATE 2 MG/ML CPJ (NOT FOR IM USE) IV PRN ×4 (04:27→19:50)
[2018-10-18] MEDS: CLONIDINE 0.2MG TABLET PO SCH ×3 (05:56→22:54)
[2018-10-18] MEDS: HYDRALAZINE HCL 100MG TABLET PO SCH ×3 (05:56→22:55)
[2018-10-18] MEDS: SODIUM CHLORIDE 0.9% INJ 3ML FLUSH IVF SCH ×3 (05:56→22:55)
[2018-10-18 07:18] LABS: HEMOGLOBIN. 9.4 g/dL (14.0-18.0); MEAN CORPUSCULAR HEMOGLOBIN 29.2 pg (28.0-32.0); MEAN CORPUSCULAR VOLUME 86.7 fL (80.0-94.0); MEAN PLATELET VOLUME 9.1 fl (7.4-10.4); PLATELET 179 x1000/uL (130-400); RED BLOOD CELL COUNT 3.23 mill/uL (4.7-6.1); RED CELL DISTRIBUTION WIDTH 15.8 % (11.6-14.6)
[2018-10-18] MEDS: SUCRALFATE 1 G/10 ML UDC PO SCH ×4 (08:03→21:46)
[2018-10-18] MEDS: BLOOD SUGAR DIAGNOSTIC STRIP TEST SCH ×4 (08:03→21:00)
[2018-10-18] MEDS: PANTOPRAZOLE 40MG DR TABLET PO SCH (08:03)
[2018-10-18] MEDS: DOCUSATE SODIUM SUGAR FREE 100MG/10ML UDC NG SCH (08:04)
[2018-10-18] MEDS: CARVEDILOL 3.125 MG TABLET PO SCH ×2 (09:00→21:50)
[2018-10-18] MEDS: INSULIN LISPRO 100 UNITS/ML SUBCUT SCH ×4 (09:04→22:56)
[2018-10-18] MEDS: NIFEDIPINE XL 60MG TAB PO SCH ×2 (11:04→21:50)
[2018-10-18] MEDS: CALCIUM CARBONATE 500MG TABLET CHEW PO SCH ×2 (11:04→18:07)
[2018-10-18] MEDS: INSULIN GLARGINE UD 100 UNITS/ML SYR SUBCUT SCH (11:05)
[2018-10-18 12:55] LABS: PLATELET ESTIMATE NORMAL
[2018-10-18] MEDS: CLONIDINE 0.1MG TABLET PO PRN (18:07)
[2018-10-18] MEDS: DOXAZOSIN MESYLATE 4MG TABLET PO SCH (21:49)
[2018-10-18] MEDS: HYDROCODONE/ACETAMINOPHEN 10/325MG TABLET PO PRN (23:13)
[2018-10-19] VITALS (12 sets, daily range): BP systolic 123–160; BP diastolic 55–76
[2018-10-19] MEDS: MORPHINE SULFATE 2 MG/ML CPJ (NOT FOR IM USE) IV PRN ×6 (00:29→20:59)
[2018-10-19] MEDS: IPRATROPIUM BROMIDE (0.02%) 0.5MG/2.5ML NEB HHN SCH ×4 (01:13→20:03)
[2018-10-19] MEDS: HYDRALAZINE HCL 100MG TABLET PO SCH ×3 (05:39→23:00)
[2018-10-19] MEDS: CLONIDINE 0.2MG TABLET PO SCH ×3 (05:40→23:00)
[2018-10-19] MEDS: SODIUM CHLORIDE 0.9% INJ 3ML FLUSH IVF SCH ×3 (05:40→21:45)
[2018-10-19] MEDS: BLOOD SUGAR DIAGNOSTIC STRIP TEST SCH ×4 (07:30→21:21)
[2018-10-19] MEDS: INSULIN LISPRO 100 UNITS/ML SUBCUT SCH ×4 (08:00→21:00)
[2018-10-19] MEDS: PANTOPRAZOLE 40MG DR TABLET PO SCH (08:43)
[2018-10-19] MEDS: CALCIUM CARBONATE 500MG TABLET CHEW PO SCH ×2 (08:43→16:57)
[2018-10-19] MEDS: NIFEDIPINE XL 60MG TAB PO SCH ×2 (08:43→21:44)
[2018-10-19] MEDS: CARVEDILOL 3.125 MG TABLET PO SCH ×2 (08:43→21:44)
[2018-10-19] MEDS: DOCUSATE SODIUM SUGAR FREE 100MG/10ML UDC NG SCH (08:44)
[2018-10-19] MEDS: SUCRALFATE 1 G/10 ML UDC PO SCH ×4 (08:44→21:43)
[2018-10-19] MEDS: INSULIN GLARGINE UD 100 UNITS/ML SYR SUBCUT SCH (09:41)
[2018-10-19 10:11] LABS: CHLORIDE 104 mEq/L (98-107)
[2018-10-19 10:16] LABS: PHOSPHORUS 3.5 mg/dL (2.5-4.9)
[2018-10-19 16:33] LABS: BASOPHILS % 0.4 % (0.0-2.0); EOSINOPHILS % 1.5 % (0.0-5.0); HEMATOCRIT. 29.7 % (42.0-52.0); HEMOGLOBIN. 10.1 g/dL (14.0-18.0); LYMPHOCYTES % 11.1 % (20.0-50.0); MEAN CORPUSCULAR HEMOGLOBIN 29.6 pg (28.0-32.0); MEAN CORPUSCULAR VOLUME 87.3 fL (80.0-94.0); MEAN PLATELET VOLUME 9.3 fl (7.4-10.4); MONOCYTES % 7.8 % (2.0-8.0); NEUTROPHILS % 79.2 % (40.0-76.0); PLATELET 102 x1000/uL (130-400); RED CELL DISTRIBUTION WIDTH 15.5 % (11.6-14.6)
[2018-10-19] MEDS: DOXAZOSIN MESYLATE 4MG TABLET PO SCH (21:43)
[2018-10-20] VITALS (12 sets, daily range): BP systolic 112–161; BP diastolic 45–76
[2018-10-20] MEDS: MORPHINE SULFATE 2 MG/ML CPJ (NOT FOR IM USE) IV PRN ×6 (00:27→21:44)
[2018-10-20] MEDS: HYDROCODONE/ACETAMINOPHEN 10/325MG TABLET PO PRN (01:48)
[2018-10-20] MEDS: IPRATROPIUM BROMIDE (0.02%) 0.5MG/2.5ML NEB HHN SCH ×4 (02:08→22:08)
[2018-10-20] MEDS: CLONIDINE 0.2MG TABLET PO SCH ×3 (05:31→22:53)
[2018-10-20] MEDS: HYDRALAZINE HCL 100MG TABLET PO SCH ×3 (05:31→22:54)
[2018-10-20] MEDS: SODIUM CHLORIDE 0.9% INJ 3ML FLUSH IVF SCH ×3 (05:32→21:44)
[2018-10-20 06:57] LABS: CHLORIDE 106 mEq/L (98-107)
[2018-10-20 07:03] LABS: PHOSPHORUS 3.9 mg/dL (2.5-4.9)
[2018-10-20 07:24] LABS: BASOPHILS % 0.8 % (0.0-2.0); EOSINOPHILS % 1.4 % (0.0-5.0); HEMATOCRIT. 28.7 % (42.0-52.0); HEMOGLOBIN. 9.7 g/dL (14.0-18.0); LYMPHOCYTES % 16.4 % (20.0-50.0); MEAN CORPUSCULAR HEMOGLOBIN 29.3 pg (28.0-32.0); MEAN CORPUSCULAR VOLUME 86.4 fL (80.0-94.0); MONOCYTES % 8.2 % (2.0-8.0); NEUTROPHILS % 73.2 % (40.0-76.0); PLATELET 188 x1000/uL (130-400); RED BLOOD CELL COUNT 3.32 mill/uL (4.7-6.1)
[2018-10-20] MEDS: BLOOD SUGAR DIAGNOSTIC STRIP TEST SCH ×4 (07:39→21:32)
[2018-10-20] MEDS: INSULIN LISPRO 100 UNITS/ML SUBCUT SCH ×4 (08:00→21:45)
[2018-10-20] MEDS: SUCRALFATE 1 G/10 ML UDC PO SCH ×4 (08:16→21:41)
[2018-10-20] MEDS: CALCIUM CARBONATE 500MG TABLET CHEW PO SCH ×2 (08:16→18:06)
[2018-10-20] MEDS: NIFEDIPINE XL 60MG TAB PO SCH ×2 (08:16→21:42)
[2018-10-20] MEDS: CARVEDILOL 3.125 MG TABLET PO SCH ×2 (08:16→21:43)
[2018-10-20] MEDS: PANTOPRAZOLE 40MG DR TABLET PO SCH (08:17)
[2018-10-20] MEDS ORDERED: DOCUSATE SODIUM 250MG CAPSULE PO SCH (09:00)
[2018-10-20] MEDS: INSULIN GLARGINE UD 100 UNITS/ML SYR SUBCUT SCH (09:32)
[2018-10-20] MEDS ORDERED: EPOETIN ALFA 10000UNITS/ML VIAL SUBCUT SCH (21:00)
[2018-10-20] MEDS: DOXAZOSIN MESYLATE 4MG TABLET PO SCH (21:42)
[2018-10-21] VITALS (12 sets, daily range): BP systolic 134–166; BP diastolic 59–79
[2018-10-21] MEDS: IPRATROPIUM BROMIDE (0.02%) 0.5MG/2.5ML NEB HHN SCH (02:14)
[2018-10-21] MEDS: MORPHINE SULFATE 2 MG/ML CPJ (NOT FOR IM USE) IV PRN ×4 (02:39→18:17)
[2018-10-21] MEDS: CLONIDINE 0.2MG TABLET PO SCH ×3 (06:12→23:52)
[2018-10-21] MEDS: SODIUM CHLORIDE 0.9% INJ 3ML FLUSH IVF SCH ×3 (06:12→22:00)
[2018-10-21] MEDS: HYDRALAZINE HCL 100MG TABLET PO SCH ×3 (06:13→23:52)
[2018-10-21 06:57] LABS: BASOPHILS % 0.9 % (0.0-2.0); EOSINOPHILS % 1.8 % (0.0-5.0); HEMATOCRIT. 27.9 % (42.0-52.0); HEMOGLOBIN. 9.5 g/dL (14.0-18.0); LYMPHOCYTES % 12.6 % (20.0-50.0); MEAN CORPUSCULAR VOLUME 85.6 fL (80.0-94.0); MEAN PLATELET VOLUME 8.1 fl (7.4-10.4); MONOCYTES % 7.7 % (2.0-8.0); PLATELET 221 x1000/uL (130-400); RED BLOOD CELL COUNT 3.26 mill/uL (4.7-6.1); RED CELL DISTRIBUTION WIDTH 15.6 % (11.6-14.6)
[2018-10-21 07:04] LABS: CHLORIDE 108 mEq/L (98-107)
[2018-10-21 07:14] LABS: PHOSPHORUS 4.3 mg/dL (2.5-4.9)
[2018-10-21] MEDS ORDERED: POLYETHYLENE GLYCOL 3350 (17GM) 1 DOSE PACK PO NR (08:00)
[2018-10-21] MEDS: INSULIN LISPRO 100 UNITS/ML SUBCUT SCH ×3 (08:00→18:19)
[2018-10-21] MEDS: BLOOD SUGAR DIAGNOSTIC STRIP TEST SCH ×4 (08:23→21:00)
[2018-10-21] MEDS: PANTOPRAZOLE 40MG DR TABLET PO SCH (09:00)
[2018-10-21] MEDS: DOCUSATE SODIUM 250MG CAPSULE PO SCH ×2 (09:00→16:42)
[2018-10-21] MEDS: CALCIUM CARBONATE 500MG TABLET CHEW PO SCH (09:01)
[2018-10-21] MEDS: CARVEDILOL 3.125 MG TABLET PO SCH ×2 (09:01→20:42)
[2018-10-21] MEDS: NIFEDIPINE XL 60MG TAB PO SCH ×2 (09:01→20:42)
[2018-10-21] MEDS: SUCRALFATE 1 G/10 ML UDC PO SCH ×4 (09:02→20:41)
[2018-10-21] MEDS: INSULIN GLARGINE UD 100 UNITS/ML SYR SUBCUT SCH (09:03)
[2018-10-21] MEDS: DOXAZOSIN MESYLATE 4MG TABLET PO SCH (20:42)
[2018-10-22] VITALS (12 sets, daily range): BP systolic 142–167; BP diastolic 55–75
[2018-10-22] MEDS: INSULIN LISPRO 100 UNITS/ML SUBCUT SCH ×5 (00:10→21:00)
[2018-10-22] MEDS: HYDRALAZINE 20MG/ML VIAL IV PRN (03:08)
[2018-10-22] MEDS: MORPHINE SULFATE 2 MG/ML CPJ (NOT FOR IM USE) IV PRN ×5 (04:07→20:22)
[2018-10-22] MEDS: SODIUM CHLORIDE 0.9% INJ 3ML FLUSH IVF SCH ×3 (06:41→22:04)
[2018-10-22] MEDS: CLONIDINE 0.2MG TABLET PO SCH (06:41)
[2018-10-22] MEDS: HYDRALAZINE HCL 100MG TABLET PO SCH ×3 (06:41→22:47)
[2018-10-22] MEDS ORDERED: MORPHINE SULFATE 2 MG/ML CPJ (NOT FOR IM USE) IV ONE (08:03)
[2018-10-22] MEDS: DOCUSATE SODIUM 250MG CAPSULE PO SCH ×2 (08:14→17:00)
[2018-10-22] MEDS: SUCRALFATE 1 G/10 ML UDC PO SCH ×4 (08:14→22:03)
[2018-10-22] MEDS: NIFEDIPINE XL 60MG TAB PO SCH ×2 (08:15→22:03)
[2018-10-22] MEDS: CARVEDILOL 3.125 MG TABLET PO SCH ×2 (08:15→22:04)
[2018-10-22] MEDS: CALCIUM CARBONATE 500MG TABLET CHEW PO SCH (08:15)
[2018-10-22] MEDS: PANTOPRAZOLE 40MG DR TABLET PO SCH (08:15)
[2018-10-22] MEDS: BLOOD SUGAR DIAGNOSTIC STRIP TEST SCH ×4 (08:17→21:00)
[2018-10-22] MEDS: INSULIN GLARGINE UD 100 UNITS/ML SYR SUBCUT SCH (09:45)
[2018-10-22] MEDS: CLONIDINE 0.3MG TABLET PO SCH ×3 (09:50→22:47)
[2018-10-22] MEDS: DOXAZOSIN MESYLATE 4MG TABLET PO SCH (22:03)
== END 2018-10-22 23:03 | DRG 870 ==
LOC: ER 09:53 → 5EST 12:10 → EDBEDREQ 12:12 → ENRESERV 12:54 → CVICU 16:12 → 5EST 10-15 15:51
PROVIDERS: ADMIT Internal Medicine; ATTEND Internal Medicine
PROC: 5A1955Z Respiratory Ventilation, Greater than 96 Consecutive Hours (ICD-10-PCS; 2018-10-09)
PROC: 0BH17EZ Insertion of Endotracheal Airway into Trachea, Via Natural or Artificial Opening (ICD-10-PCS; 2018-10-09)
PROC: 0F943ZZ Drainage of Gallbladder, Percutaneous Approach (ICD-10-PCS; principal; 2018-10-10)
PROC: 05HY33Z Insertion of Infusion Device into Upper Vein, Percutaneous Approach (ICD-10-PCS; 2018-10-10)
PROC: B54MZZZ Ultrasonography of Right Upper Extremity Veins (ICD-10-PCS; 2018-10-10)
PROC: 5A1D70Z Performance of Urinary Filtration, Intermittent, Less than 6 Hours Per Day (ICD-10-PCS; 2018-10-10)
DX: A41.9 Sepsis, unspecified organism (principal); N17.0 Acute kidney failure with tubular necrosis; J96.01 Acute respiratory failure with hypoxia; J18.1 Lobar pneumonia, unspecified organism; G92 Toxic encephalopathy; E46 Unspecified protein-calorie malnutrition; N18.4 Chronic kidney disease, stage 4 (severe); J44.0 Chronic obstructive pulmonary disease with (acute) lower respiratory infection; E87.2 Acidosis; K80.00 Calculus of gallbladder with acute cholecystitis without obstruction; I47.1 Supraventricular tachycardia; I13.0 Hypertensive heart and chronic kidney disease with heart failure and stage 1 through stage 4 chronic kidney disease, or unspecified chronic kidney disease; I42.9 Cardiomyopathy, unspecified; Z68.41 Body mass index [BMI] 40.0-44.9, adult; I48.91 Unspecified atrial fibrillation; I25.10 Atherosclerotic heart disease of native coronary artery without angina pectoris; E87.5 Hyperkalemia; I50.9 Heart failure, unspecified; R65.20 Severe sepsis without septic shock; D69.6 Thrombocytopenia, unspecified; E11.22 Type 2 diabetes mellitus with diabetic chronic kidney disease; E11.65 Type 2 diabetes mellitus with hyperglycemia; E66.01 Morbid (severe) obesity due to excess calories; E83.39 Other disorders of phosphorus metabolism; E83.51 Hypocalcemia; E87.6 Hypokalemia; G20 Parkinson's disease; E11.40 Type 2 diabetes mellitus with diabetic neuropathy, unspecified; G72.9 Myopathy, unspecified; H40.9 Unspecified glaucoma; G89.29 Other chronic pain; K27.9 Peptic ulcer, site unspecified, unspecified as acute or chronic, without hemorrhage or perforation; I44.0 Atrioventricular block, first degree; K21.9 Gastro-esophageal reflux disease without esophagitis; E80.6 Other disorders of bilirubin metabolism; L89.620 Pressure ulcer of left heel, unstageable; N40.0 Benign prostatic hyperplasia without lower urinary tract symptoms; Z79.02 Long term (current) use of antithrombotics/antiplatelets; Z79.4 Long term (current) use of insulin; Z79.899 Other long term (current) drug therapy; Z82.49 Family history of ischemic heart disease and other diseases of the circulatory system; Z86.73 Personal history of transient ischemic attack (TIA), and cerebral infarction without residual deficits; Z95.0 Presence of cardiac pacemaker; Z87.01 Personal history of pneumonia (recurrent); Z98.61 Coronary angioplasty status; Z99.2 Dependence on renal dialysis
CPT/HCPCS: 31500; 36415; 36556; 36600; 47490; 51702; 71045; 74176; 74246; 76705; 76937; 78227; 80048; 80202; 80305; 80320; 81003; 82150; 82330; 82375; 82550; 82553; 82805; 82962; 83605; 83735; 84100; 84145; 84439; 84443; 84478; 84484; 87070; 92610; 93005; 93306; 93970; 94002; 94003; 94640; 96365; 96366; 96368; 96375; 97110; 97162; 97530; 99291; A9537; C1729; C1752; C9113; J0360; J0610; J0692; J0885; J1644; J1650; J1815; J1940; J1956; J2250; J2270; J2543; J2704; J2930; J3010; J3370; J3475; J3480; J3490; J7030; J7042; J7060; J7620; Q9963; G0480

== ENCOUNTER 2018-11-17 09:42 | Inpatient (IN) | payer MEDICARE, MEDICAID ==
[~2018-11-17] VITALS: Ht 177.8 cm; Wt 112.5 kg
[2018-11-17] VITALS (39 sets, daily range): BP systolic 130–219; BP diastolic 63–110
[~2018-11-17 09:42] MED LIST changes: -CLON0.1T PO; -DOCU-150 PO; -DOXA4TAB3 PO; -HYDR100T26 PO; -NIFE90TA43 PO; -OXYC-100 GT
[2018-11-17] MEDS ORDERED: SODIUM CHLORIDE 0.9% 1000ML BAG (SEPSIS BOLUS) IV ONE (10:15)
[2018-11-17] MEDS ORDERED: PIPERACILLIN/TAZ 3.375G PREMIX 50 ML IV ONE (10:30)
[2018-11-17 10:41] LABS: BG BASE EXCESS -2.3 mmol/L (-2.0-2.0); BG CARBOXYHEMOGLOBIN 0.1 % (0.5-1.5); BG DEOXYHEMOGLOBIN 4.7 % (0.0-5.0); BG FRACTION INSPIRED OXYGEN 21; BG HCO3 ACT 19.5 mmol/L (22.0-26.0); BG METHEMOGLOBIN 0.6 % (0.0-1.5); BG OXYGEN SATURATION 95.3 % (92.0-98.5); BG OXYHEMOGLOBIN 94.6 % (94.0-97.0); BG PCO2 25.4 mmHg (35.0-45.0); BG PH 7.502 (7.350-7.450); BG PO2 74.1 mmHg (75.0-100.0); BG SAMPLE SITE RIGHT RADIAL; BG TOTAL HEMOGLOBIN 12.1 g/dL (12.0-18.0); BG VENT MODE ROOM AIR
[2018-11-17] MEDS ORDERED: SODIUM CHLORIDE 0.9% 10ML VIAL ONE (12:00)
[2018-11-17] MEDS ORDERED: VECURONIUM BROMIDE 10 MG/VIAL IV ONE (12:00)
[2018-11-17] MEDS ORDERED: ETOMIDATE 2MG/ML 10ML VIAL IV ONE (12:00)
[2018-11-17] MEDS ORDERED: MIDAZOLAM HCL 50 MG in DEXTROSE 5% WATER 40 ML IV ONE (12:15)
[2018-11-17] MEDS ORDERED: PROPOFOL 10MG/ML 100ML 100 ML IV ONE (12:15)
[2018-11-17] MEDS ORDERED: SODIUM BICARBONATE 4% (2.4MEQ) 5ML VIAL IV ONE (12:35)
[2018-11-17] MEDS ORDERED: LIDOCAINE HCL 1% 20ML VIAL (Pyxis) INJ ONE (12:35)
[2018-11-17 12:45] LABS: BASOPHILS % 0.6 % (0.0-2.0); HEMATOCRIT. 35.3 % (42.0-52.0); HEMOGLOBIN. 11.5 g/dL (14.0-18.0); MEAN CORPUSCULAR HEMOGLOBIN 28.4 pg (28.0-32.0); MEAN CORPUSCULAR VOLUME 87.2 fL (80.0-94.0); MONOCYTES % 7.5 % (2.0-8.0); NEUTROPHILS % 61.9 % (40.0-76.0); RED BLOOD CELL COUNT 4.05 mill/uL (4.7-6.1); RED CELL DISTRIBUTION WIDTH 15.8 % (11.6-14.6)
[2018-11-17 13:09] LABS: PLATELET ESTIMATE NORMAL
[2018-11-17 13:10] LABS: MEAN PLATELET VOLUME 9.1 fl (7.4-10.4); PLATELET 174 x1000/uL (130-400)
[2018-11-17 13:18] LABS: INR 1.1; PROTHROMBIN TIME 11.1 sec (9.6-11.0)
[2018-11-17 13:30] LABS: CHLORIDE 104 mEq/L (98-107)
[2018-11-17 14:21] LABS: CREATINE KINASE MB FRACTION 1.8 ng/mL (0.5-3.6)
[2018-11-17] MEDS ORDERED: PHENYLEPHRINE 20 MG in DEXT 5% WATER 248 ML IV PRN (14:30)
[2018-11-17] MEDS ORDERED: IPRATROPIUM BROMIDE (0.02%) 0.5MG/2.5ML NEB HHN PRN (14:30)
[2018-11-17 14:36] LABS: BG CARBOXYHEMOGLOBIN 0.3 % (0.5-1.5); BG DEOXYHEMOGLOBIN 0.9 % (0.0-5.0); BG FRACTION INSPIRED OXYGEN 100; BG HCO3 ACT 18.4 mmol/L (22.0-26.0); BG OXYGEN SATURATION 99.1 % (92.0-98.5); BG OXYHEMOGLOBIN 98.8 % (94.0-97.0); BG PCO2 40.9 mmHg (35.0-45.0); BG PH 7.271 (7.350-7.450); BG PO2 219.1 mmHg (75.0-100.0); BG SAMPLE SITE RIGHT RADIAL; BG TIDAL VOLUME(mL) 500 mL; BG TOTAL HEMOGLOBIN 11.3 g/dL (12.0-18.0); BG VENT MODE VENT - A/C; BG VENT RATE 14 set
[2018-11-17] MEDS: IPRATROPIUM BROMIDE (0.02%) 0.5MG/2.5ML NEB HHN SCH ×2 (14:53→20:14)
[2018-11-17] MEDS ORDERED: IPRATROPIUM BROMIDE (0.02%) 0.5MG/2.5ML NEB ONE (14:53)
[2018-11-17] MEDS: PROPOFOL 10MG/ML 100ML 100 ML IV PRN ×4 (15:16→23:17)
[2018-11-17] MEDS ORDERED: DEXTROSE 50% WATER 50ML SYRINGE IV PRN (15:45)
[2018-11-17] MEDS ORDERED: ONDANSETRON HCL 4MG/2ML INJ IV PRN (15:45)
[2018-11-17] MEDS ORDERED: ACETAMINOPHEN 325MG TABLET PO PRN (15:45)
[2018-11-17] MEDS ORDERED: DOCUSATE SODIUM 100MG CAPSULE PO PRN (15:45)
[2018-11-17] MEDS ORDERED: VANCOMYCIN 1500MG in DEXTROSE 5% WATER 250ML IV SCH (16:00)
[2018-11-17] MEDS: DEXT 5%/LACTATED RINGERS 1,000 ML IV SCH (16:23)
[2018-11-17] MEDS: BLOOD SUGAR DIAGNOSTIC STRIP TEST SCH ×2 (16:41→20:29)
[2018-11-17] MEDS: INSULIN LISPRO 100 UNITS/ML SUBCUT SCH ×2 (16:42→21:25)
[2018-11-17] MEDS: PIPERACILLIN/TAZOBACTAM 2.25 G in DEXTROSE 5% WATER 50 ML IV SCH ×2 (17:08→22:17)
[2018-11-17] MEDS: ENOXAPARIN 30MG/0.3ML SYR SUBCUT SCH (17:09)
[2018-11-17] MEDS: CLONIDINE 0.1MG TABLET NG PRN (18:24)
[2018-11-17] MEDS: HYDRALAZINE 20MG/ML VIAL IV PRN (20:19)
[2018-11-17] MEDS ORDERED: FAMOTIDINE 20MG/2ML VIAL IV SCH (21:00)
[2018-11-17] MEDS: FAMOTIDINE 20MG TABLET PO SCH (21:23)
[2018-11-17] MEDS: ASCORBIC ACID 500 MG TABLET PO SCH (21:24)
[2018-11-17] MEDS: INSULIN GLARGINE UD 100 UNITS/ML SYR SUBCUT SCH (22:23)
[2018-11-17 23:05] LABS: CREATINE KINASE MB FRACTION 3.2 ng/mL (0.5-3.6)
[2018-11-18] VITALS (97 sets, daily range): BP systolic 109–190; BP diastolic 56–99
[2018-11-18] MEDS: HYDRALAZINE 20MG/ML VIAL IV PRN ×2 (00:44→13:06)
[2018-11-18] MEDS: IPRATROPIUM BROMIDE (0.02%) 0.5MG/2.5ML NEB HHN SCH ×4 (02:25→20:16)
[2018-11-18] MEDS: PROPOFOL 10MG/ML 100ML 100 ML IV PRN ×6 (03:02→23:41)
[2018-11-18] MEDS: PIPERACILLIN/TAZOBACTAM 2.25 G in DEXTROSE 5% WATER 50 ML IV SCH ×4 (05:19→22:09)
[2018-11-18 06:08] LABS: CREATINE KINASE MB FRACTION 3.5 ng/mL (0.5-3.6)
[2018-11-18] MEDS: BLOOD SUGAR DIAGNOSTIC STRIP TEST SCH ×4 (06:57→21:42)
[2018-11-18] MEDS: INSULIN LISPRO 100 UNITS/ML SUBCUT SCH ×4 (07:05→21:59)
[2018-11-18 07:54] LABS: BG BASE EXCESS 0.2 mmol/L (-2.0-2.0); BG CARBOXYHEMOGLOBIN 0.3 % (0.5-1.5); BG DEOXYHEMOGLOBIN 1.2 % (0.0-5.0); BG FRACTION INSPIRED OXYGEN 40; BG HCO3 ACT 23.7 mmol/L (22.0-26.0); BG METHEMOGLOBIN 0.3 % (0.0-1.5); BG OXYGEN SATURATION 98.8 % (92.0-98.5); BG OXYHEMOGLOBIN 98.2 % (94.0-97.0); BG PCO2 34.1 mmHg (35.0-45.0); BG PO2 144.8 mmHg (75.0-100.0); BG SAMPLE SITE RIGHT RADIAL; BG TIDAL VOLUME(mL) 500 mL; BG TOTAL HEMOGLOBIN 9.5 g/dL (12.0-18.0); BG VENT MODE VENT - A/C; BG VENT RATE 16 set
[2018-11-18] MEDS: ASCORBIC ACID 500 MG TABLET PO SCH ×2 (08:40→21:57)
[2018-11-18] MEDS: ZINC SULFATE 220 MG ( 50 ) CAPSULE PO SCH (08:40)
[2018-11-18] MEDS: AMLODIPINE 10MG TABLET PO SCH (08:40)
[2018-11-18 08:51] LABS: BASOPHILS % 0.6 % (0.0-2.0); EOSINOPHILS % 1.6 % (0.0-5.0); HEMATOCRIT. 30.9 % (42.0-52.0); HEMOGLOBIN. 10.5 g/dL (14.0-18.0); LYMPHOCYTES % 11.6 % (20.0-50.0); MEAN CORPUSCULAR HEMOGLOBIN 28.8 pg (28.0-32.0); MEAN CORPUSCULAR VOLUME 84.7 fL (80.0-94.0); MEAN PLATELET VOLUME 9.6 fl (7.4-10.4); MONOCYTES % 7.5 % (2.0-8.0); NEUTROPHILS % 78.7 % (40.0-76.0); PLATELET 157 x1000/uL (130-400); RED BLOOD CELL COUNT 3.65 mill/uL (4.7-6.1); RED CELL DISTRIBUTION WIDTH 15.6 % (11.6-14.6)
[2018-11-18] MEDS ORDERED: VANCOMYCIN 500 MG PREMIX 100 ML IV NR (11:00)
[2018-11-18] MEDS: DEXT 5%/LACTATED RINGERS 1,000 ML IV SCH (12:18)
[2018-11-18] MEDS: CLONIDINE 0.1MG TABLET PO SCH ×2 (15:35→22:01)
[2018-11-18] MEDS: ENOXAPARIN 30MG/0.3ML SYR SUBCUT SCH (16:49)
[2018-11-18] MEDS: DOXAZOSIN MESYLATE 4MG TABLET PO SCH (21:57)
[2018-11-18] MEDS: FAMOTIDINE 20MG TABLET PO SCH (21:57)
[2018-11-18] MEDS: INSULIN GLARGINE UD 100 UNITS/ML SYR SUBCUT SCH (22:04)
[2018-11-19] VITALS (56 sets, daily range): BP systolic 112–183; BP diastolic 48–85
[2018-11-19] MEDS: IPRATROPIUM BROMIDE (0.02%) 0.5MG/2.5ML NEB HHN SCH ×4 (02:27→20:34)
[2018-11-19 05:23] LABS: BASOPHILS % 0.5 % (0.0-2.0); EOSINOPHILS % 3.3 % (0.0-5.0); HEMATOCRIT. 29.5 % (42.0-52.0); HEMOGLOBIN. 9.9 g/dL (14.0-18.0); LYMPHOCYTES % 18.4 % (20.0-50.0); MEAN CORPUSCULAR HEMOGLOBIN 28.3 pg (28.0-32.0); MEAN CORPUSCULAR VOLUME 84.1 fL (80.0-94.0); MEAN PLATELET VOLUME 8.9 fl (7.4-10.4); MONOCYTES % 7.8 % (2.0-8.0); PLATELET 157 x1000/uL (130-400); RED BLOOD CELL COUNT 3.51 mill/uL (4.7-6.1); RED CELL DISTRIBUTION WIDTH 15.5 % (11.6-14.6)
[2018-11-19 05:36] LABS: CHLORIDE 106 mEq/L (98-107)
[2018-11-19] MEDS: PROPOFOL 10MG/ML 100ML 100 ML IV PRN ×4 (05:40→18:05)
[2018-11-19] MEDS: BLOOD SUGAR DIAGNOSTIC STRIP TEST SCH ×4 (05:41→21:34)
[2018-11-19 05:45] LABS: PHOSPHORUS 3.5 mg/dL (2.5-4.9)
[2018-11-19] MEDS: PIPERACILLIN/TAZOBACTAM 2.25 G in DEXTROSE 5% WATER 50 ML IV SCH ×4 (05:51→22:13)
[2018-11-19] MEDS: CLONIDINE 0.1MG TABLET PO SCH (05:52)
[2018-11-19] MEDS: DEXT 5%/LACTATED RINGERS 1,000 ML IV SCH (05:53)
[2018-11-19] MEDS: INSULIN LISPRO 100 UNITS/ML SUBCUT SCH ×4 (05:53→21:34)
[2018-11-19] MEDS: AMLODIPINE 10MG TABLET PO SCH (08:29)
[2018-11-19] MEDS: ZINC SULFATE 220 MG ( 50 ) CAPSULE PO SCH (08:29)
[2018-11-19] MEDS: ASCORBIC ACID 500 MG TABLET PO SCH ×2 (08:29→21:42)
[2018-11-19 08:30] LABS: BG BASE EXCESS -2.1 mmol/L (-2.0-2.0); BG CARBOXYHEMOGLOBIN 0.3 % (0.5-1.5); BG DEOXYHEMOGLOBIN 2.7 % (0.0-5.0); BG FRACTION INSPIRED OXYGEN 40; BG HCO3 ACT 22.2 mmol/L (22.0-26.0); BG METHEMOGLOBIN 0.3 % (0.0-1.5); BG OXYGEN SATURATION 97.3 % (92.0-98.5); BG OXYHEMOGLOBIN 96.7 % (94.0-97.0); BG PH 7.408 (7.350-7.450); BG PO2 93.1 mmHg (75.0-100.0); BG SAMPLE SITE RIGHT RADIAL; BG TIDAL VOLUME(mL) 500 mL; BG TOTAL HEMOGLOBIN 10.6 g/dL (12.0-18.0); BG VENT MODE VENT - A/C; BG VENT RATE 16 set
[2018-11-19] MEDS ORDERED: POTASSIUM CHLORIDE 20MEQ/PACKET PO NR (09:00)
[2018-11-19] MEDS ORDERED: MAGNESIUM 2 G PREMIX 50 ML IV NR (10:00)
[2018-11-19] MEDS: HYDRALAZINE 20MG/ML VIAL IV PRN (11:29)
[2018-11-19] MEDS: CLONIDINE 0.2MG TABLET PO SCH ×2 (13:51→21:36)
[2018-11-19] MEDS ORDERED: VANCOMYCIN 750 MG PREMIX 150 ML IV SCH (15:30)
[2018-11-19] MEDS: ENOXAPARIN 30MG/0.3ML SYR SUBCUT SCH (16:40)
[2018-11-19] MEDS: DOXAZOSIN MESYLATE 4MG TABLET PO SCH (21:32)
[2018-11-19] MEDS: FAMOTIDINE 20MG TABLET PO SCH (21:32)
[2018-11-19] MEDS: INSULIN GLARGINE UD 100 UNITS/ML SYR SUBCUT SCH (21:35)
[2018-11-20] VITALS (61 sets, daily range): BP systolic 113–169; BP diastolic 56–89
[2018-11-20] MEDS: PROPOFOL 10MG/ML 100ML 100 ML IV PRN ×2 (00:44→05:17)
[2018-11-20] MEDS: IPRATROPIUM BROMIDE (0.02%) 0.5MG/2.5ML NEB HHN SCH ×4 (02:10→20:58)
[2018-11-20] MEDS: PIPERACILLIN/TAZOBACTAM 2.25 G in DEXTROSE 5% WATER 50 ML IV SCH ×4 (05:20→22:05)
[2018-11-20 05:22] LABS: BASOPHILS % 0.8 % (0.0-2.0); EOSINOPHILS % 5.8 % (0.0-5.0); HEMATOCRIT. 29.1 % (42.0-52.0); HEMOGLOBIN. 9.7 g/dL (14.0-18.0); LYMPHOCYTES % 16.4 % (20.0-50.0); MEAN CORPUSCULAR HEMOGLOBIN 28.4 pg (28.0-32.0); MEAN CORPUSCULAR VOLUME 85.2 fL (80.0-94.0); PLATELET 143 x1000/uL (130-400); RED BLOOD CELL COUNT 3.41 mill/uL (4.7-6.1); RED CELL DISTRIBUTION WIDTH 16.1 % (11.6-14.6)
[2018-11-20 06:22] LABS: PHOSPHORUS 3.9 mg/dL (2.5-4.9)
[2018-11-20] MEDS: CLONIDINE 0.2MG TABLET PO SCH (06:27)
[2018-11-20] MEDS: BLOOD SUGAR DIAGNOSTIC STRIP TEST SCH ×4 (06:27→21:13)
[2018-11-20] MEDS: INSULIN LISPRO 100 UNITS/ML SUBCUT SCH ×4 (06:28→21:00)
[2018-11-20] MEDS: DEXT 5%/LACTATED RINGERS 1,000 ML IV SCH ×2 (07:41→21:09)
[2018-11-20] MEDS: ZINC SULFATE 220 MG ( 50 ) CAPSULE PO SCH (08:28)
[2018-11-20] MEDS: ASCORBIC ACID 500 MG TABLET PO SCH ×2 (08:28→21:08)
[2018-11-20] MEDS: AMLODIPINE 10MG TABLET PO SCH (08:29)
[2018-11-20] MEDS: MORPHINE SULFATE 2 MG/ML CPJ (NOT FOR IM USE) IV PRN ×2 (08:31→19:18)
[2018-11-20 10:28] LABS: BG BASE EXCESS -2.1 mmol/L (-2.0-2.0); BG CARBOXYHEMOGLOBIN 0.3 % (0.5-1.5); BG DEOXYHEMOGLOBIN 1.9 % (0.0-5.0); BG FRACTION INSPIRED OXYGEN 40; BG HCO3 ACT 23.1 mmol/L (22.0-26.0); BG OXYGEN SATURATION 98.1 % (92.0-98.5); BG OXYHEMOGLOBIN 97.8 % (94.0-97.0); BG PCO2 40.8 mmHg (35.0-45.0); BG PO2 122.9 mmHg (75.0-100.0); BG PRESSURE SUPPORT 8; BG SAMPLE SITE RIGHT BRACHIAL; BG VENT MODE VENT - CPAP
[2018-11-20] MEDS: ENOXAPARIN 120MG/0.8ML SYR SUBCUT SCH (11:58)
[2018-11-20] MEDS: HYDRALAZINE HCL 50MG TABLET PO SCH ×2 (13:23→22:03)
[2018-11-20] MEDS: CLONIDINE 0.3MG TABLET PO SCH ×2 (13:23→22:03)
[2018-11-20] MEDS: DOXAZOSIN MESYLATE 4MG TABLET PO SCH (21:08)
[2018-11-20] MEDS: FAMOTIDINE 20MG TABLET PO SCH (21:08)
[2018-11-20] MEDS: VANCOMYCIN 1500MG in DEXTROSE 5% WATER 250ML IV SCH (21:13)
[2018-11-20] MEDS: INSULIN GLARGINE UD 100 UNITS/ML SYR SUBCUT SCH (22:04)
[2018-11-21] VITALS (36 sets, daily range): BP systolic 115–176; BP diastolic 35–82
[2018-11-21] MEDS: IPRATROPIUM BROMIDE (0.02%) 0.5MG/2.5ML NEB HHN SCH ×3 (02:05→20:50)
[2018-11-21] MEDS: PIPERACILLIN/TAZOBACTAM 2.25 G in DEXTROSE 5% WATER 50 ML IV SCH ×4 (05:10→22:33)
[2018-11-21] MEDS: CLONIDINE 0.3MG TABLET PO SCH ×3 (06:26→22:30)
[2018-11-21] MEDS: HYDRALAZINE HCL 50MG TABLET PO SCH ×3 (06:27→22:30)
[2018-11-21] MEDS: BLOOD SUGAR DIAGNOSTIC STRIP TEST SCH ×4 (06:28→21:38)
[2018-11-21] MEDS: INSULIN LISPRO 100 UNITS/ML SUBCUT SCH ×4 (06:28→21:00)
[2018-11-21] MEDS: MORPHINE SULFATE 2 MG/ML CPJ (NOT FOR IM USE) IV PRN (06:39)
[2018-11-21] MEDS: ZINC SULFATE 220 MG ( 50 ) CAPSULE PO SCH (09:26)
[2018-11-21] MEDS: ASCORBIC ACID 500 MG TABLET PO SCH ×2 (09:26→21:30)
[2018-11-21] MEDS: AMLODIPINE 10MG TABLET PO SCH (09:27)
[2018-11-21] MEDS: ENOXAPARIN 120MG/0.8ML SYR SUBCUT SCH (09:28)
[2018-11-21] MEDS: HYDROCODONE/ACETAMINOPHEN 10/325MG TABLET PO PRN (21:31)
[2018-11-21] MEDS: FAMOTIDINE 20MG TABLET PO SCH (21:32)
[2018-11-21] MEDS: DOXAZOSIN MESYLATE 4MG TABLET PO SCH (21:33)
[2018-11-21] MEDS: INSULIN GLARGINE UD 100 UNITS/ML SYR SUBCUT SCH (22:32)
[2018-11-22] VITALS (12 sets, daily range): BP systolic 145–177; BP diastolic 56–105
[2018-11-22] MEDS: IPRATROPIUM BROMIDE (0.02%) 0.5MG/2.5ML NEB HHN SCH ×4 (01:57→20:25)
[2018-11-22] MEDS: CLONIDINE 0.1MG TABLET NG PRN ×2 (02:19→11:27)
[2018-11-22] MEDS: HYDROCODONE/ACETAMINOPHEN 10/325MG TABLET PO PRN ×4 (02:19→21:45)
[2018-11-22] MEDS: HYDRALAZINE 20MG/ML VIAL IV PRN ×2 (03:12→17:07)
[2018-11-22] MEDS: CLONIDINE 0.3MG TABLET PO SCH ×3 (06:25→21:46)
[2018-11-22] MEDS: PIPERACILLIN/TAZOBACTAM 2.25 G in DEXTROSE 5% WATER 50 ML IV SCH ×4 (06:25→22:54)
[2018-11-22] MEDS: HYDRALAZINE HCL 50MG TABLET PO SCH ×3 (06:26→21:46)
[2018-11-22] MEDS: BLOOD SUGAR DIAGNOSTIC STRIP TEST SCH ×4 (07:30→21:41)
[2018-11-22] MEDS: INSULIN LISPRO 100 UNITS/ML SUBCUT SCH ×4 (08:00→21:47)
[2018-11-22] MEDS: VANCOMYCIN 1500MG in DEXTROSE 5% WATER 250ML IV SCH (08:35)
[2018-11-22] MEDS: ZINC SULFATE 220 MG ( 50 ) CAPSULE PO SCH (08:35)
[2018-11-22] MEDS: AMLODIPINE 10MG TABLET PO SCH (08:35)
[2018-11-22] MEDS: ASCORBIC ACID 500 MG TABLET PO SCH ×2 (08:35→21:45)
[2018-11-22 08:39] LABS: BASOPHILS % 0.7 % (0.0-2.0); EOSINOPHILS % 7.1 % (0.0-5.0); HEMATOCRIT. 27.9 % (42.0-52.0); HEMOGLOBIN. 9.3 g/dL (14.0-18.0); LYMPHOCYTES % 24.4 % (20.0-50.0); MEAN CORPUSCULAR VOLUME 84.1 fL (80.0-94.0); MEAN PLATELET VOLUME 8.9 fl (7.4-10.4); MONOCYTES % 9.8 % (2.0-8.0); PLATELET 158 x1000/uL (130-400); RED BLOOD CELL COUNT 3.32 mill/uL (4.7-6.1); RED CELL DISTRIBUTION WIDTH 15.6 % (11.6-14.6)
[2018-11-22 08:46] LABS: CHLORIDE 106 mEq/L (98-107)
[2018-11-22 08:58] LABS: PHOSPHORUS 3.1 mg/dL (2.5-4.9)
[2018-11-22] MEDS ORDERED: ENOXAPARIN 120MG/0.8ML SYR SUBCUT SCH (09:00)
[2018-11-22] MEDS: DOXAZOSIN MESYLATE 4MG TABLET PO SCH (21:45)
[2018-11-22] MEDS: FAMOTIDINE 20MG TABLET PO SCH (21:46)
[2018-11-22] MEDS: INSULIN GLARGINE UD 100 UNITS/ML SYR SUBCUT SCH (21:48)
[2018-11-23] VITALS (11 sets, daily range): BP systolic 142–186; BP diastolic 72–95
[2018-11-23] MEDS: IPRATROPIUM BROMIDE (0.02%) 0.5MG/2.5ML NEB HHN SCH ×4 (01:34→20:35)
[2018-11-23] MEDS: HYDROCODONE/ACETAMINOPHEN 10/325MG TABLET PO PRN ×2 (02:44→20:51)
[2018-11-23] MEDS: PIPERACILLIN/TAZOBACTAM 2.25 G in DEXTROSE 5% WATER 50 ML IV SCH ×4 (04:52→23:04)
[2018-11-23] MEDS: HYDRALAZINE HCL 50MG TABLET PO SCH (05:02)
[2018-11-23] MEDS: CLONIDINE 0.3MG TABLET PO SCH ×3 (05:02→21:55)
[2018-11-23] MEDS: CLONIDINE 0.1MG TABLET NG PRN (07:39)
[2018-11-23] MEDS: ASCORBIC ACID 500 MG TABLET PO SCH ×2 (08:23→20:50)
[2018-11-23] MEDS: AMLODIPINE 10MG TABLET PO SCH (08:23)
[2018-11-23] MEDS: ENOXAPARIN 120MG/0.8ML SYR SUBCUT SCH (08:23)
[2018-11-23] MEDS: BLOOD SUGAR DIAGNOSTIC STRIP TEST SCH ×4 (08:23→21:12)
[2018-11-23] MEDS: ZINC SULFATE 220 MG ( 50 ) CAPSULE PO SCH (08:23)
[2018-11-23] MEDS: INSULIN LISPRO 100 UNITS/ML SUBCUT SCH ×4 (08:24→21:05)
[2018-11-23] MEDS: SPIRONOLACTONE 25MG TABLET PO SCH (15:05)
[2018-11-23] MEDS: HYDRALAZINE HCL 100MG TABLET PO SCH ×2 (15:06→21:55)
[2018-11-23] MEDS: VANCOMYCIN 1500MG in DEXTROSE 5% WATER 250ML IV SCH (20:47)
[2018-11-23] MEDS: DOXAZOSIN MESYLATE 4MG TABLET PO SCH (20:49)
[2018-11-23] MEDS: FAMOTIDINE 20MG TABLET PO SCH (20:50)
[2018-11-23 21:15] LABS: BASOPHILS % 0.7 % (0.0-2.0); EOSINOPHILS % 5.3 % (0.0-5.0); HEMATOCRIT. 29.1 % (42.0-52.0); HEMOGLOBIN. 9.7 g/dL (14.0-18.0); LYMPHOCYTES % 22.4 % (20.0-50.0); MEAN CORPUSCULAR HEMOGLOBIN 28.4 pg (28.0-32.0); MEAN CORPUSCULAR VOLUME 84.6 fL (80.0-94.0); MEAN PLATELET VOLUME 8.8 fl (7.4-10.4); MONOCYTES % 7.9 % (2.0-8.0); NEUTROPHILS % 63.7 % (40.0-76.0); PLATELET 166 x1000/uL (130-400); RED BLOOD CELL COUNT 3.43 mill/uL (4.7-6.1); RED CELL DISTRIBUTION WIDTH 15.6 % (11.6-14.6)
[2018-11-23 21:19] LABS: PHOSPHORUS 2.9 mg/dL (2.5-4.9)
[2018-11-23] MEDS: INSULIN GLARGINE UD 100 UNITS/ML SYR SUBCUT SCH (21:56)
[2018-11-24] VITALS (11 sets, daily range): BP systolic 136–178; BP diastolic 65–96
[2018-11-24] MEDS: IPRATROPIUM BROMIDE (0.02%) 0.5MG/2.5ML NEB HHN SCH ×3 (02:18→14:07)
[2018-11-24] MEDS: HYDROCODONE/ACETAMINOPHEN 10/325MG TABLET PO PRN ×2 (02:49→11:26)
[2018-11-24] MEDS: PIPERACILLIN/TAZOBACTAM 2.25 G in DEXTROSE 5% WATER 50 ML IV SCH ×3 (04:48→17:42)
[2018-11-24] MEDS: CLONIDINE 0.3MG TABLET PO SCH ×2 (05:40→14:00)
[2018-11-24] MEDS: HYDRALAZINE HCL 100MG TABLET PO SCH ×2 (05:40→14:30)
[2018-11-24] MEDS: BLOOD SUGAR DIAGNOSTIC STRIP TEST SCH ×3 (07:52→17:19)
[2018-11-24] MEDS: INSULIN LISPRO 100 UNITS/ML SUBCUT SCH ×3 (08:00→18:00)
[2018-11-24 08:18] LABS: BASOPHILS % 0.8 % (0.0-2.0); EOSINOPHILS % 5.4 % (0.0-5.0); HEMATOCRIT. 27.4 % (42.0-52.0); HEMOGLOBIN. 9.1 g/dL (14.0-18.0); LYMPHOCYTES % 24.6 % (20.0-50.0); MEAN CORPUSCULAR HEMOGLOBIN 27.9 pg (28.0-32.0); MEAN CORPUSCULAR VOLUME 84.1 fL (80.0-94.0); MEAN PLATELET VOLUME 8.3 fl (7.4-10.4); MONOCYTES % 9.6 % (2.0-8.0); NEUTROPHILS % 59.6 % (40.0-76.0); PLATELET 174 x1000/uL (130-400); RED BLOOD CELL COUNT 3.26 mill/uL (4.7-6.1); RED CELL DISTRIBUTION WIDTH 15.8 % (11.6-14.6)
[2018-11-24] MEDS: AMLODIPINE 10MG TABLET PO SCH (08:39)
[2018-11-24] MEDS: ZINC SULFATE 220 MG ( 50 ) CAPSULE PO SCH (08:39)
[2018-11-24] MEDS: ENOXAPARIN 120MG/0.8ML SYR SUBCUT SCH (08:39)
[2018-11-24] MEDS: ASCORBIC ACID 500 MG TABLET PO SCH (08:39)
[2018-11-24] MEDS: SPIRONOLACTONE 25MG TABLET PO SCH (08:40)
[2018-11-24 09:00] LABS: PHOSPHORUS 2.9 mg/dL (2.5-4.9)
[2018-11-24] MEDS ORDERED: NIFEDIPINE XL 60MG TAB PO SCH (09:00)
[2018-11-24] MEDS ORDERED: NYSTATIN POWDER 15GM TOP SCH (19:30)
== END 2018-11-24 23:46 | DRG 871 ==
LOC: ER 09:42 → MICUSO 12:08 → EDBEDREQTM 12:17 → EDBEDREQSVC 12:17 → EDBEDREQ 12:17 → ENRESERV 12:34 → 5EST 11-21 16:01
PROVIDERS: ADMIT Internal Medicine; ATTEND Internal Medicine
PROC: 0BH17EZ Insertion of Endotracheal Airway into Trachea, Via Natural or Artificial Opening (ICD-10-PCS; principal; 2018-11-17)
PROC: 5A1945Z Respiratory Ventilation, 24-96 Consecutive Hours (ICD-10-PCS; 2018-11-17)
PROC: 06HY33Z Insertion of Infusion Device into Lower Vein, Percutaneous Approach (ICD-10-PCS; 2018-11-17)
DX: A41.89 Other specified sepsis (principal); J96.01 Acute respiratory failure with hypoxia; J69.0 Pneumonitis due to inhalation of food and vomit; N18.6 End stage renal disease; G92 Toxic encephalopathy; N17.9 Acute kidney failure, unspecified; E46 Unspecified protein-calorie malnutrition; I42.9 Cardiomyopathy, unspecified; E87.2 Acidosis; K80.00 Calculus of gallbladder with acute cholecystitis without obstruction; I13.2 Hypertensive heart and chronic kidney disease with heart failure and with stage 5 chronic kidney disease, or end stage renal disease; I50.42 Chronic combined systolic (congestive) and diastolic (congestive) heart failure; I82.413 Acute embolism and thrombosis of femoral vein, bilateral; D63.8 Anemia in other chronic diseases classified elsewhere; I48.91 Unspecified atrial fibrillation; J44.9 Chronic obstructive pulmonary disease, unspecified; E11.22 Type 2 diabetes mellitus with diabetic chronic kidney disease; G89.4 Chronic pain syndrome; I25.10 Atherosclerotic heart disease of native coronary artery without angina pectoris; E87.6 Hypokalemia; E83.42 Hypomagnesemia; K21.9 Gastro-esophageal reflux disease without esophagitis; E11.40 Type 2 diabetes mellitus with diabetic neuropathy, unspecified; M19.90 Unspecified osteoarthritis, unspecified site; Z99.2 Dependence on renal dialysis; Z95.0 Presence of cardiac pacemaker; Z90.49 Acquired absence of other specified parts of digestive tract; Z87.11 Personal history of peptic ulcer disease; Z87.01 Personal history of pneumonia (recurrent); Z79.4 Long term (current) use of insulin; Z79.899 Other long term (current) drug therapy; Z82.49 Family history of ischemic heart disease and other diseases of the circulatory system
CPT/HCPCS: 36415; 36600; 71045; 74176; 76700; 78580; 80048; 80061; 80202; 82140; 82375; 82550; 82553; 82805; 82962; 83036; 83605; 83735; 83880; 84100; 84134; 84145; 84443; 84478; 84484; 87070; 87076; 92610; 93005; 93306; 93970; 94002; 94003; 94640; 96365; 97116; 97162; 97166; 97530; 97535; 99291; J0360; J1650; J1815; J2250; J2270; J2370; J2543; J2704; J3370; J3475; J3490; J7030; J7060; J7121

== ENCOUNTER 2018-12-15 11:29 | Inpatient (IN) | payer MEDICARE, MEDICAID ==
[~2018-12-15] VITALS: Ht 185.4 cm; Wt 108.4 kg
[2018-12-15] MEDS ORDERED: SODIUM CHLORIDE 0.9% 1,000 ML IV ONE (11:52)
[2018-12-15] MEDS ORDERED: ASPIRIN 325MG EC TABLET PO ONE (12:00)
[2018-12-15] MEDS ORDERED: NITROGLYCERIN OINT 1GM/INCH UDPKT TD ONE (12:00)
[2018-12-15 13:04] LABS: BASOPHILS % 1.3 % (0.0-2.0); EOSINOPHILS % 1.8 % (0.0-5.0); HEMATOCRIT. 26.8 % (42.0-52.0); HEMOGLOBIN. 8.7 g/dL (14.0-18.0); LYMPHOCYTES % 18.9 % (20.0-50.0); MEAN CORPUSCULAR HEMOGLOBIN 27.8 pg (28.0-32.0); MEAN CORPUSCULAR VOLUME 85.3 fL (80.0-94.0); MEAN PLATELET VOLUME 7.9 fl (7.4-10.4); MONOCYTES % 7.9 % (2.0-8.0); NEUTROPHILS % 70.1 % (40.0-76.0); PLATELET 235 x1000/uL (130-400); RED BLOOD CELL COUNT 3.14 mill/uL (4.7-6.1); RED CELL DISTRIBUTION WIDTH 17.6 % (11.6-14.6)
[2018-12-15 13:06] LABS: CHLORIDE 113 mEq/L (98-107)
[2018-12-15 13:07] LABS: INR 0.9; PROTHROMBIN TIME 9.7 sec (9.6-11.0)
[2018-12-15] MEDS: MORPHINE SULFATE 2 MG/ML CPJ (NOT FOR IM USE) IV NR ×2 (13:13→13:57)
[2018-12-15] MEDS ORDERED: SODIUM BICARBONATE 8.4% 1 MEQ/ML 50ML SYR IV ONE (13:30)
[2018-12-15] MEDS ORDERED: DEXTROSE 50% WATER 50ML SYRINGE IV ONE (13:30)
[2018-12-15] MEDS ORDERED: ALBUTEROL (0.083%) 2.5MG/3ML NEB HHN ONE (13:30)
[2018-12-15] MEDS ORDERED: INSULIN REGULAR (HUMULIN R) 300UNITS/3ML IV ONE (13:30)
[2018-12-15] MEDS ORDERED: MORPHINE SULFATE 2 MG/ML CPJ (NOT FOR IM USE) IV ONE (13:45)
[2018-12-15] MEDS ORDERED: LIDOCAINE HCL 1% 20ML VIAL (Pyxis) INJ ONE (15:31)
[2018-12-15] MEDS: METOPROLOL TARTRATE 25MG TABLET PO SCH (17:08)
[2018-12-15] MEDS: AMLODIPINE 10MG TABLET PO SCH (17:08)
[2018-12-15] MEDS ORDERED: GUAIFENESIN 200MG/10ML SUGAR FREE UDC PO PRN (17:45)
[2018-12-15] MEDS ORDERED: IPRATROPIUM/ALBUTEROL 0.5-3(2.5)MG/3ML NEB HHN PRN (17:45)
[2018-12-15] MEDS ORDERED: ACETAMINOPHEN 325MG TABLET PO PRN (17:45)
[2018-12-15] MEDS ORDERED: DIPHENHYDRAMINE 50MG/ML VIAL IV PRN (17:45)
[2018-12-15] MEDS ORDERED: LORAZEPAM 2MG/ML CPJ IV PRN (17:45)
[2018-12-15] MEDS ORDERED: MAGNESIUM/ALUMINUM HYDROXIDE/SIMETHICONE 30ML UDC PO PRN (17:45)
[2018-12-15] MEDS ORDERED: ONDANSETRON HCL 4MG/2ML INJ IV PRN (17:45)
[2018-12-15] MEDS ORDERED: HYDROCODONE/ACETAMINOPHEN 10/325MG TABLET PO PRN (17:45)
[2018-12-15] MEDS ORDERED: DEXTROSE 50% WATER 50ML SYRINGE IV PRN (17:45)
[2018-12-15] MEDS ORDERED: INSULIN LISPRO 100 UNITS/ML SUBCUT SCH (18:24)
[2018-12-15] MEDS ORDERED: ENOXAPARIN 40MG/0.4ML SYR SUBCUT NR (18:26)
[2018-12-15] MEDS: MORPHINE SULFATE 2 MG/ML CPJ (NOT FOR IM USE) IV PRN ×2 (18:29→22:48)
[2018-12-15] MEDS: INSULIN LISPRO 100 UNITS/ML SUBCUT SCH ×2 (19:09→21:00)
[2018-12-15] MEDS ORDERED: HYDRALAZINE HCL 25MG TABLET PO NR (20:45)
[2018-12-15] MEDS ORDERED: SODIUM POLYSTYRENE SULFONATE 15 G/60 ML BOT PO PRN (21:00)
[2018-12-15 22:00] VITALS: BP 177/59
[2018-12-15 22:05] VITALS: BP 177/59
[2018-12-15 22:30] LABS: CREATINE KINASE 130 IU/L (39-308); CREATINE KINASE MB FRACTION 1.7 ng/mL (0.5-3.6)
[2018-12-15] MEDS: CLONIDINE 0.1MG TABLET PO PRN (22:42)
[2018-12-15] MEDS: BLOOD SUGAR DIAGNOSTIC STRIP TEST SCH (23:05)
[2018-12-16] VITALS: BP 150/60
[2018-12-16 04:00] VITALS: BP 155/71
[2018-12-16] MEDS: MORPHINE SULFATE 2 MG/ML CPJ (NOT FOR IM USE) IV PRN ×2 (04:34→17:41)
[2018-12-16] MEDS ORDERED: HYDRALAZINE HCL 25MG TABLET PO SCH (06:00)
[2018-12-16 06:41] LABS: CHLORIDE 114 mEq/L (98-107)
[2018-12-16 06:51] LABS: CREATINE KINASE 138 IU/L (39-308)
[2018-12-16 06:55] LABS: CREATINE KINASE MB FRACTION 1.1 ng/mL (0.5-3.6)
[2018-12-16 07:09] LABS: BASOPHILS % 0.7 % (0.0-2.0); EOSINOPHILS % 3.2 % (0.0-5.0); HEMATOCRIT. 23.2 % (42.0-52.0); HEMOGLOBIN. 7.6 g/dL (14.0-18.0); LYMPHOCYTES % 22.9 % (20.0-50.0); MEAN CORPUSCULAR HEMOGLOBIN 27.9 pg (28.0-32.0); MEAN CORPUSCULAR VOLUME 85.3 fL (80.0-94.0); MONOCYTES % 11.1 % (2.0-8.0); NEUTROPHILS % 62.1 % (40.0-76.0); PLATELET 208 x1000/uL (130-400); RED BLOOD CELL COUNT 2.72 mill/uL (4.7-6.1); RED CELL DISTRIBUTION WIDTH 17.3 % (11.6-14.6)
[2018-12-16] MEDS: BLOOD SUGAR DIAGNOSTIC STRIP TEST SCH ×4 (07:40→20:38)
[2018-12-16 08:00] VITALS: BP 179/75
[2018-12-16] MEDS: INSULIN LISPRO 100 UNITS/ML SUBCUT SCH ×4 (08:10→20:38)
[2018-12-16] MEDS: ASPIRIN 81MG EC TABLET PO SCH (08:58)
[2018-12-16] MEDS: AMLODIPINE 10MG TABLET PO SCH (08:59)
[2018-12-16] MEDS: CLONIDINE 0.1MG TABLET PO PRN ×2 (08:59→20:32)
[2018-12-16] MEDS: METOPROLOL TARTRATE 25MG TABLET PO SCH ×2 (09:00→20:31)
[2018-12-16] MEDS ORDERED: ENOXAPARIN 30MG/0.3ML SYR SUBCUT SCH (09:00)
[2018-12-16] MEDS ORDERED: FUROSEMIDE 40MG/4ML VIAL IVP SCH (10:30)
[2018-12-16] MEDS ORDERED: ENOXAPARIN 80MG/0.8ML SYR SUBCUT NR (11:00)
[2018-12-16] MEDS ORDERED: SODIUM POLYSTYRENE SULFONATE 15 G/60 ML BOT PO SCH (12:00)
[2018-12-16] MEDS: NIFEDIPINE XL 90MG TAB PO SCH (12:30)
[2018-12-16] MEDS: HYDRALAZINE HCL 25MG TABLET PO SCH ×2 (14:00→20:31)
[2018-12-16 20:00] VITALS: BP 174/67
[2018-12-16] MEDS: ENOXAPARIN 120MG/0.8ML SYR SUBCUT SCH (20:35)
[2018-12-17] VITALS: BP 170/66
[2018-12-17 04:00] VITALS: BP 150/65
[2018-12-17] MEDS: MORPHINE SULFATE 2 MG/ML CPJ (NOT FOR IM USE) IV PRN ×4 (04:31→21:35)
[2018-12-17] MEDS: SODIUM CHLORIDE 0.9% INJ 3ML FLUSH IVF SCH ×4 (05:15→22:00)
[2018-12-17] MEDS: HYDRALAZINE HCL 25MG TABLET PO SCH (05:16)
[2018-12-17] MEDS: BLOOD SUGAR DIAGNOSTIC STRIP TEST SCH ×4 (07:40→21:00)
[2018-12-17 08:00] VITALS: BP 168/66
[2018-12-17] MEDS: INSULIN LISPRO 100 UNITS/ML SUBCUT SCH ×4 (08:10→21:00)
[2018-12-17] MEDS: ASPIRIN 81MG EC TABLET PO SCH ×2 (09:00→09:31)
[2018-12-17] MEDS: ENOXAPARIN 120MG/0.8ML SYR SUBCUT SCH ×2 (09:00→21:00)
[2018-12-17] MEDS: DOCUSATE SODIUM 100MG CAPSULE PO PRN (09:31)
[2018-12-17] MEDS: NIFEDIPINE XL 90MG TAB PO SCH (09:31)
[2018-12-17] MEDS: METOPROLOL TARTRATE 25MG TABLET PO SCH (09:32)
[2018-12-17 12:00] VITALS: BP 165/65
[2018-12-17] MEDS ORDERED: ALTEPLASE 2MG/VIAL ITC NR (12:00)
[2018-12-17] MEDS ORDERED: SODIUM POLYSTYRENE SULFONATE 15 G/60 ML BOT PO NR (14:00)
[2018-12-17] MEDS: HYDRALAZINE HCL 100MG TABLET PO SCH ×2 (14:49→23:13)
[2018-12-17 16:00] VITALS: BP 172/77
[2018-12-17 17:32] LABS: BASOPHILS % 0.8 % (0.0-2.0); EOSINOPHILS % 3.7 % (0.0-5.0); HEMATOCRIT. 26.4 % (42.0-52.0); HEMOGLOBIN. 8.6 g/dL (14.0-18.0); LYMPHOCYTES % 21.4 % (20.0-50.0); MEAN CORPUSCULAR HEMOGLOBIN 27.8 pg (28.0-32.0); MEAN CORPUSCULAR VOLUME 85.7 fL (80.0-94.0); MEAN PLATELET VOLUME 8.5 fl (7.4-10.4); MONOCYTES % 6.9 % (2.0-8.0); NEUTROPHILS % 67.2 % (40.0-76.0); PLATELET 191 x1000/uL (130-400); RED BLOOD CELL COUNT 3.08 mill/uL (4.7-6.1); RED CELL DISTRIBUTION WIDTH 17.5 % (11.6-14.6)
[2018-12-17 20:00] VITALS: BP 169/77
[2018-12-17] MEDS: TERAZOSIN HCL 1MG CAPSULE PO SCH ×2 (23:01→23:12)
[2018-12-17] MEDS: NIFEDIPINE XL 60MG TAB PO SCH ×2 (23:01→23:12)
[2018-12-17] MEDS: METOPROLOL TARTRATE 50MG TABLET PO SCH (23:13)
[2018-12-18] VITALS: BP 138/75
[2018-12-18] MEDS: MORPHINE SULFATE 2 MG/ML CPJ (NOT FOR IM USE) IV PRN ×2 (03:50→09:20)
[2018-12-18 04:00] VITALS: BP 178/80
[2018-12-18] MEDS: HYDRALAZINE HCL 100MG TABLET PO SCH ×3 (05:56→21:29)
[2018-12-18] MEDS: SODIUM CHLORIDE 0.9% INJ 3ML FLUSH IVF SCH ×3 (06:59→21:29)
[2018-12-18 08:00] VITALS: BP 171/62
[2018-12-18] MEDS: INSULIN LISPRO 100 UNITS/ML SUBCUT SCH ×4 (08:10→21:00)
[2018-12-18] MEDS: BLOOD SUGAR DIAGNOSTIC STRIP TEST SCH ×4 (08:34→21:30)
[2018-12-18] MEDS: ASPIRIN 81MG EC TABLET PO SCH (09:16)
[2018-12-18] MEDS: DOCUSATE SODIUM 100MG CAPSULE PO PRN (09:16)
[2018-12-18] MEDS: CLONIDINE 0.1MG TABLET PO PRN ×2 (09:17→18:25)
[2018-12-18] MEDS: METOPROLOL TARTRATE 50MG TABLET PO SCH (09:17)
[2018-12-18] MEDS: ENOXAPARIN 120MG/0.8ML SYR SUBCUT SCH ×2 (09:19→21:30)
[2018-12-18 10:23] LABS: BASOPHILS % 0.7 % (0.0-2.0); HEMATOCRIT. 29.1 % (42.0-52.0); HEMOGLOBIN. 9.4 g/dL (14.0-18.0); LYMPHOCYTES % 20.5 % (20.0-50.0); MEAN CORPUSCULAR HEMOGLOBIN 27.5 pg (28.0-32.0); MEAN CORPUSCULAR VOLUME 84.8 fL (80.0-94.0); MEAN PLATELET VOLUME 8.5 fl (7.4-10.4); MONOCYTES % 6.5 % (2.0-8.0); NEUTROPHILS % 69.3 % (40.0-76.0); PLATELET 260 x1000/uL (130-400); RED BLOOD CELL COUNT 3.43 mill/uL (4.7-6.1); RED CELL DISTRIBUTION WIDTH 17.4 % (11.6-14.6)
[2018-12-18 12:00] VITALS: BP_SYST 102; BP_SYST 156; BP_DIAS 61; BP_DIAS 65
[2018-12-18] MEDS ORDERED: CLONIDINE 0.1MG TABLET PO SCH (14:00)
[2018-12-18 16:00] VITALS: BP 176/86
[2018-12-18 20:40] VITALS: BP 187/92
[2018-12-18] MEDS ORDERED: POLYETHYLENE GLYCOL 3350 (17GM) 1 DOSE PACK PO SCH (21:00)
[2018-12-18] MEDS ORDERED: TERAZOSIN HCL 1MG CAPSULE PO SCH (21:00)
[2018-12-18] MEDS ORDERED: DOXAZOSIN MESYLATE 4MG TABLET PO SCH (21:00)
[2018-12-18] MEDS: NIFEDIPINE XL 60MG TAB PO SCH (21:28)
[2018-12-18] MEDS: CLONIDINE 0.2MG TABLET PO SCH (21:29)
[2018-12-19 00:46] VITALS: BP 172/80
[2018-12-19 04:00] VITALS: BP 143/68
[2018-12-19] MEDS: HYDRALAZINE HCL 100MG TABLET PO SCH ×2 (06:28→14:16)
[2018-12-19] MEDS: CLONIDINE 0.2MG TABLET PO SCH (06:28)
[2018-12-19] MEDS: SODIUM CHLORIDE 0.9% INJ 3ML FLUSH IVF SCH ×2 (06:29→14:17)
[2018-12-19 08:00] VITALS: BP 166/93
[2018-12-19] MEDS: INSULIN LISPRO 100 UNITS/ML SUBCUT SCH ×3 (08:10→17:45)
[2018-12-19] MEDS: BLOOD SUGAR DIAGNOSTIC STRIP TEST SCH ×3 (08:14→17:45)
[2018-12-19] MEDS: CLONIDINE 0.1MG TABLET PO PRN (08:42)
[2018-12-19] MEDS: ASPIRIN 81MG EC TABLET PO SCH (08:42)
[2018-12-19] MEDS: MORPHINE SULFATE 2 MG/ML CPJ (NOT FOR IM USE) IV PRN ×2 (08:43→14:16)
[2018-12-19] MEDS: NIFEDIPINE XL 60MG TAB PO SCH (08:43)
[2018-12-19] MEDS: ENOXAPARIN 120MG/0.8ML SYR SUBCUT SCH (08:44)
[2018-12-19] MEDS ORDERED: DUTASTERIDE 0.5MG CAPSULE PO SCH (09:00)
[2018-12-19 11:52] LABS: EOSINOPHILS % 1.4 % (0.0-5.0); HEMATOCRIT. 27.4 % (42.0-52.0); LYMPHOCYTES % 19.9 % (20.0-50.0); MEAN CORPUSCULAR HEMOGLOBIN 27.7 pg (28.0-32.0); MEAN CORPUSCULAR VOLUME 84.4 fL (80.0-94.0); MEAN PLATELET VOLUME 8.4 fl (7.4-10.4); MONOCYTES % 6.4 % (2.0-8.0); NEUTROPHILS % 71.3 % (40.0-76.0); PLATELET 233 x1000/uL (130-400); RED BLOOD CELL COUNT 3.25 mill/uL (4.7-6.1); RED CELL DISTRIBUTION WIDTH 17.6 % (11.6-14.6)
[2018-12-19 12:00] VITALS: BP 189/61
[2018-12-19 12:23] LABS: CHLORIDE 112 mEq/L (98-107)
[2018-12-19] MEDS ORDERED: CLONIDINE 0.2MG TABLET PO SCH (14:00)
[2018-12-19 16:00] VITALS: BP 135/72
[2018-12-19 16:59] VITALS: BP 135/72
[2018-12-19] MEDS ORDERED: PREGABALIN 50 MG CAPSULE PO SCH (21:00)
== END 2018-12-19 18:36 | DRG 683 ==
LOC: ER 11:29 → 7WST 13:37 → EDBEDREQ 14:24 → EDBEDREQTM 14:24 → CANBEDREQ 19:27 → ENRESERV 21:00
PROVIDERS: ADMIT Internal Medicine; ATTEND Internal Medicine
PROC: 02HV33Z Insertion of Infusion Device into Superior Vena Cava, Percutaneous Approach (ICD-10-PCS; principal; 2018-12-15)
PROC: B548ZZA Ultrasonography of Superior Vena Cava, Guidance (ICD-10-PCS; 2018-12-15)
DX: N17.9 Acute kidney failure, unspecified (principal); I13.0 Hypertensive heart and chronic kidney disease with heart failure and stage 1 through stage 4 chronic kidney disease, or unspecified chronic kidney disease; E46 Unspecified protein-calorie malnutrition; I50.32 Chronic diastolic (congestive) heart failure; G93.40 Encephalopathy, unspecified; I42.9 Cardiomyopathy, unspecified; N18.4 Chronic kidney disease, stage 4 (severe); Z95.0 Presence of cardiac pacemaker; Z86.718 Personal history of other venous thrombosis and embolism; I25.10 Atherosclerotic heart disease of native coronary artery without angina pectoris; G20 Parkinson's disease; F02.80 Dementia in other diseases classified elsewhere, unspecified severity, without behavioral disturbance, psychotic disturbance, mood disturbance, and anxiety; E87.5 Hyperkalemia; E11.22 Type 2 diabetes mellitus with diabetic chronic kidney disease; D64.9 Anemia, unspecified; J44.9 Chronic obstructive pulmonary disease, unspecified; E78.5 Hyperlipidemia, unspecified; F32.9 Major depressive disorder, single episode, unspecified; M19.90 Unspecified osteoarthritis, unspecified site; I49.5 Sick sinus syndrome; G89.29 Other chronic pain; K21.9 Gastro-esophageal reflux disease without esophagitis; Z79.899 Other long term (current) drug therapy; Z82.49 Family history of ischemic heart disease and other diseases of the circulatory system; Z86.73 Personal history of transient ischemic attack (TIA), and cerebral infarction without residual deficits; Z87.11 Personal history of peptic ulcer disease; Z68.31 Body mass index [BMI] 31.0-31.9, adult
CPT/HCPCS: 36415; 36573; 71045; 80048; 82270; 82550; 82553; 82962; 83735; 83880; 84132; 84484; 93005; 94644; 99285; C1725; J1650; J1815; J1940; J2270; J2997; J3490; J7030; J7611

== ENCOUNTER 2018-12-22 11:45 | Inpatient (IN) | payer MEDICARE, MEDICAID ==
[~2018-12-22] VITALS: Ht 175.3 cm; Wt 106.6 kg
[2018-12-22] MEDS ORDERED: ACETAMINOPHEN 325MG TABLET PO STA (12:20)
[2018-12-22] MEDS ORDERED: SODIUM CHLORIDE 0.9% 1000ML BAG (SEPSIS BOLUS) IV ONE (12:30)
[2018-12-22] MEDS ORDERED: PIPERACILLIN/TAZ 3.375G PREMIX 50 ML IV ONE (12:30)
[2018-12-22] MEDS ORDERED: VANCOMYCIN 1 G PREMIX 200 ML IV ONE (12:30)
[2018-12-22 13:06] LABS: BASOPHILS % 0.6 % (0.0-2.0); EOSINOPHILS % 1.2 % (0.0-5.0); HEMATOCRIT. 27.6 % (42.0-52.0); HEMOGLOBIN. 9.1 g/dL (14.0-18.0); LYMPHOCYTES % 8.6 % (20.0-50.0); MEAN CORPUSCULAR VOLUME 84.8 fL (80.0-94.0); MEAN PLATELET VOLUME 8.2 fl (7.4-10.4); MONOCYTES % 8.7 % (2.0-8.0); NEUTROPHILS % 80.9 % (40.0-76.0); PLATELET 207 x1000/uL (130-400); RED BLOOD CELL COUNT 3.26 mill/uL (4.7-6.1); RED CELL DISTRIBUTION WIDTH 17.4 % (11.6-14.6)
[2018-12-22 13:09] LABS: PROTHROMBIN TIME 10.5 sec (9.6-11.0)
[2018-12-22 13:10] LABS: CHLORIDE 112 mEq/L (98-107)
[2018-12-22] MEDS ORDERED: MORPHINE SULFATE 2 MG/ML CPJ (NOT FOR IM USE) IV ONE ×2 (13:45→15:30)
[2018-12-22 14:29] LABS: CLARITY URINE CLEAR (CLEAR); COLOR URINE YELLOW (YELLOW); KETONES URINE NEGATIVE (NEGATIVE); LEUKOCYTE ESTERASE URINE NEGATIVE (NEGATIVE); NITRITE URINE NEGATIVE (NEGATIVE); OCCULT BLOOD URINE NEGATIVE (NEGATIVE); PROTEIN URINE 2+ (NEGATIVE); SPECIFIC GRAVITY URINE 1.012 (1.005-1.030); UROBILINOGEN URINE 0.2 E.U./dL (0.2-1.0)
[2018-12-22] MEDS ORDERED: IBUPROFEN 400MG TABLET PO ONE (15:30)
[2018-12-22] MEDS ORDERED: OSELTAMIVIR 75MG CAPSULE PO ONE (16:15)
[2018-12-22] MEDS ORDERED: IPRATROPIUM/ALBUTEROL 0.5-3(2.5)MG/3ML NEB HHN PRN (17:45)
[2018-12-22] MEDS ORDERED: GUAIFENESIN 200MG/10ML SUGAR FREE UDC PO PRN (17:45)
[2018-12-22] MEDS ORDERED: DIPHENHYDRAMINE 50MG/ML VIAL IV PRN (17:45)
[2018-12-22] MEDS ORDERED: LORAZEPAM 2MG/ML CPJ IV PRN (17:45)
[2018-12-22] MEDS ORDERED: HYDROCODONE/ACETAMINOPHEN 10/325MG TABLET PO PRN (17:45)
[2018-12-22] MEDS ORDERED: DOCUSATE SODIUM 100MG CAPSULE PO PRN (17:45)
[2018-12-22] MEDS ORDERED: ONDANSETRON HCL 4MG/2ML INJ IV PRN (17:45)
[2018-12-22 21:00] VITALS: BP 180/75
[2018-12-22] MEDS: SODIUM CHLORIDE 0.9% INJ 3ML FLUSH IVF SCH (21:21)
[2018-12-22] MEDS: HYDRALAZINE 20MG/ML VIAL IV PRN (21:33)
[2018-12-22] MEDS: ENOXAPARIN 100MG/ML SYR SUBCUT SCH (21:33)
[2018-12-22] MEDS ORDERED: VANCOMYCIN 1 G PREMIX 200 ML IV NR (23:00)
[2018-12-22] MEDS: PIPERACILLIN/TAZOBACTAM 3.375 G in DEXT 5% WATER 100 ML IV SCH (23:53)
[2018-12-23] VITALS (9 sets, daily range): BP systolic 147–195; BP diastolic 65–85
[2018-12-23] MEDS ORDERED: HYDR-4009 PO (00:27)
[2018-12-23] MEDS ORDERED: CLON-457 PO (00:27)
[2018-12-23] MEDS ORDERED: DOCU-138 PO (00:27)
[2018-12-23] MEDS ORDERED: ASPI-1393 PO (00:27)
[2018-12-23] MEDS ORDERED: HYDR100T26 PO (00:27)
[2018-12-23] MEDS ORDERED: DOXA8TAB2 PO (00:27)
[2018-12-23] MEDS ORDERED: DIPH25CA83 PO (00:27)
[2018-12-23] MEDS ORDERED: POLY17PO3 PO (00:27)
[2018-12-23] MEDS ORDERED: DONE5TAB7 PO (00:27)
[2018-12-23] MEDS ORDERED: POLY15DR31 BOTHEYE (00:27)
[2018-12-23] MEDS ORDERED: IPRA3AMP9 HHN (00:27)
[2018-12-23] MEDS ORDERED: LOV120 SQ (00:27)
[2018-12-23] MEDS ORDERED: NIFE90TA2 PO (00:27)
[2018-12-23 00:57] LABS: CREATINE KINASE MB FRACTION 1.2 ng/mL (0.5-3.6)
[2018-12-23] MEDS: IPRATROPIUM/ALBUTEROL 0.5-3(2.5)MG/3ML NEB HHN SCH ×4 (02:33→20:42)
[2018-12-23] MEDS: CLONIDINE 0.1MG TABLET PO PRN ×2 (03:12→17:50)
[2018-12-23] MEDS: SODIUM CHLORIDE 0.9% INJ 3ML FLUSH IVF SCH ×3 (05:11→21:23)
[2018-12-23] MEDS: HYDRALAZINE 20MG/ML VIAL IV PRN ×2 (05:30→21:23)
[2018-12-23] MEDS: PIPERACILLIN/TAZOBACTAM 3.375 G in DEXT 5% WATER 100 ML IV SCH ×2 (06:02→18:30)
[2018-12-23] MEDS: MORPHINE SULFATE 2 MG/ML CPJ (NOT FOR IM USE) IV PRN ×3 (09:50→21:22)
[2018-12-23] MEDS: ENOXAPARIN 100MG/ML SYR SUBCUT SCH (18:07)
[2018-12-23] MEDS: OSELTAMIVIR 30MG CAPSULE PO SCH (18:51)
[2018-12-23] MEDS: GUAIFENESIN 600MG ER TABLET PO SCH (20:20)
[2018-12-23] MEDS ORDERED: VANCOMYCIN 1250MG in DEXTROSE 5% WATER 250ML IV NR (23:00)
[2018-12-24] VITALS (8 sets, daily range): BP systolic 123–175; BP diastolic 68–80
[2018-12-24 00:21] LABS: BASOPHILS % 0.7 % (0.0-2.0); EOSINOPHILS % 2.2 % (0.0-5.0); HEMATOCRIT. 27.3 % (42.0-52.0); HEMOGLOBIN. 8.9 g/dL (14.0-18.0); LYMPHOCYTES % 15.7 % (20.0-50.0); MEAN CORPUSCULAR HEMOGLOBIN 27.5 pg (28.0-32.0); MEAN CORPUSCULAR VOLUME 84.6 fL (80.0-94.0); MEAN PLATELET VOLUME 9.3 fl (7.4-10.4); MONOCYTES % 10.2 % (2.0-8.0); NEUTROPHILS % 71.2 % (40.0-76.0); PLATELET 166 x1000/uL (130-400); RED BLOOD CELL COUNT 3.23 mill/uL (4.7-6.1); RED CELL DISTRIBUTION WIDTH 17.9 % (11.6-14.6)
[2018-12-24 00:26] LABS: CHLORIDE 110 mEq/L (98-107)
[2018-12-24 00:35] LABS: CREATINE KINASE 127 IU/L (39-308)
[2018-12-24 00:38] LABS: CREATINE KINASE MB FRACTION 1.6 ng/mL (0.5-3.6)
[2018-12-24] MEDS: CLONIDINE 0.1MG TABLET PO PRN (01:40)
[2018-12-24] MEDS: PIPERACILLIN/TAZOBACTAM 3.375 G in DEXT 5% WATER 100 ML IV SCH ×3 (01:40→17:24)
[2018-12-24] MEDS: ACETAMINOPHEN 325MG TABLET PO PRN ×2 (01:41→23:36)
[2018-12-24] MEDS: IPRATROPIUM/ALBUTEROL 0.5-3(2.5)MG/3ML NEB HHN SCH ×4 (02:00→21:09)
[2018-12-24] MEDS: MORPHINE SULFATE 2 MG/ML CPJ (NOT FOR IM USE) IV PRN ×4 (05:47→21:31)
[2018-12-24] MEDS: SODIUM CHLORIDE 0.9% INJ 3ML FLUSH IVF SCH ×3 (05:48→21:31)
[2018-12-24] MEDS: GUAIFENESIN 600MG ER TABLET PO SCH ×2 (08:59→21:30)
[2018-12-24] MEDS: OSELTAMIVIR 30MG CAPSULE PO SCH (09:44)
[2018-12-24] MEDS: ENOXAPARIN 100MG/ML SYR SUBCUT SCH (18:15)
[2018-12-24] MEDS: MAGNESIUM/ALUMINUM HYDROXIDE/SIMETHICONE 30ML UDC PO PRN (18:16)
[2018-12-24] MEDS ORDERED: VANCOMYCIN 1 G PREMIX 200 ML IV SCH (23:00)
[2018-12-25] VITALS (7 sets, daily range): BP systolic 117–211; BP diastolic 72–97
[2018-12-25] MEDS: PIPERACILLIN/TAZOBACTAM 3.375 G in DEXT 5% WATER 100 ML IV SCH (01:28)
[2018-12-25] MEDS: MORPHINE SULFATE 2 MG/ML CPJ (NOT FOR IM USE) IV PRN ×5 (01:29→22:45)
[2018-12-25] MEDS: IPRATROPIUM/ALBUTEROL 0.5-3(2.5)MG/3ML NEB HHN SCH ×4 (03:21→21:30)
[2018-12-25] MEDS: SODIUM CHLORIDE 0.9% INJ 3ML FLUSH IVF SCH ×3 (05:49→22:41)
[2018-12-25 07:34] LABS: BASOPHILS % 0.6 % (0.0-2.0); EOSINOPHILS % 6.3 % (0.0-5.0); HEMATOCRIT. 28.1 % (42.0-52.0); HEMOGLOBIN. 9.2 g/dL (14.0-18.0); LYMPHOCYTES % 29.2 % (20.0-50.0); MEAN CORPUSCULAR HEMOGLOBIN 27.6 pg (28.0-32.0); MEAN CORPUSCULAR VOLUME 83.8 fL (80.0-94.0); MEAN PLATELET VOLUME 8.6 fl (7.4-10.4); MONOCYTES % 10.4 % (2.0-8.0); NEUTROPHILS % 53.5 % (40.0-76.0); PLATELET 170 x1000/uL (130-400); RED BLOOD CELL COUNT 3.35 mill/uL (4.7-6.1); RED CELL DISTRIBUTION WIDTH 17.5 % (11.6-14.6)
[2018-12-25] MEDS: OSELTAMIVIR 30MG CAPSULE PO SCH (09:03)
[2018-12-25] MEDS: GUAIFENESIN 600MG ER TABLET PO SCH ×2 (09:03→21:24)
[2018-12-25] MEDS: HYDRALAZINE 20MG/ML VIAL IV PRN (09:03)
[2018-12-25] MEDS: ACETAMINOPHEN 325MG TABLET PO PRN (12:01)
[2018-12-25] MEDS: CLONIDINE 0.1MG TABLET PO PRN ×2 (12:01→22:45)
[2018-12-25] MEDS: ENOXAPARIN 100MG/ML SYR SUBCUT SCH (16:41)
[2018-12-25] MEDS: HYDRALAZINE HCL 100MG TABLET PO SCH ×2 (16:41→21:23)
[2018-12-25] MEDS: NIFEDIPINE XL 90MG TAB PO SCH (16:41)
[2018-12-25] MEDS: CLONIDINE 0.2MG TABLET PO SCH (21:24)
[2018-12-25] MEDS ORDERED: VANCOMYCIN 1 G PREMIX 200 ML IV SCH (23:00)
[2018-12-26] VITALS: BP 149/65
[2018-12-26] MEDS: IPRATROPIUM/ALBUTEROL 0.5-3(2.5)MG/3ML NEB HHN SCH ×5 (03:30→20:22)
[2018-12-26 04:00] VITALS: BP 156/73
[2018-12-26] MEDS: MAGNESIUM/ALUMINUM HYDROXIDE/SIMETHICONE 30ML UDC PO PRN (05:02)
[2018-12-26] MEDS: SODIUM CHLORIDE 0.9% INJ 3ML FLUSH IVF SCH ×3 (05:10→21:20)
[2018-12-26] MEDS: MORPHINE SULFATE 2 MG/ML CPJ (NOT FOR IM USE) IV PRN ×3 (05:10→16:47)
[2018-12-26] MEDS: CLONIDINE 0.2MG TABLET PO SCH ×3 (06:16→21:19)
[2018-12-26] MEDS: HYDRALAZINE HCL 100MG TABLET PO SCH ×3 (06:16→21:19)
[2018-12-26 06:42] LABS: BASOPHILS % 0.4 % (0.0-2.0); EOSINOPHILS % 3.7 % (0.0-5.0); HEMATOCRIT. 29.2 % (42.0-52.0); HEMOGLOBIN. 9.6 g/dL (14.0-18.0); LYMPHOCYTES % 29.8 % (20.0-50.0); MEAN CORPUSCULAR HEMOGLOBIN 27.3 pg (28.0-32.0); MEAN PLATELET VOLUME 8.2 fl (7.4-10.4); MONOCYTES % 10.1 % (2.0-8.0); PLATELET 169 x1000/uL (130-400); RED BLOOD CELL COUNT 3.51 mill/uL (4.7-6.1); RED CELL DISTRIBUTION WIDTH 17.7 % (11.6-14.6)
[2018-12-26 06:55] LABS: PHOSPHORUS 3.1 mg/dL (2.5-4.9)
[2018-12-26 08:00] VITALS: BP 169/79
[2018-12-26] MEDS: CLONIDINE 0.1MG TABLET PO PRN (09:22)
[2018-12-26] MEDS: GUAIFENESIN 600MG ER TABLET PO SCH ×2 (09:22→21:19)
[2018-12-26] MEDS: NIFEDIPINE XL 90MG TAB PO SCH (09:22)
[2018-12-26] MEDS: OSELTAMIVIR 30MG CAPSULE PO SCH (09:22)
[2018-12-26 12:00] VITALS: BP 159/75
[2018-12-26 16:00] VITALS: BP 156/89
[2018-12-26] MEDS: ENOXAPARIN 100MG/ML SYR SUBCUT SCH (16:47)
[2018-12-26 20:00] VITALS: BP 159/71
[2018-12-27] VITALS: BP 142/53
[2018-12-27] MEDS: IPRATROPIUM/ALBUTEROL 0.5-3(2.5)MG/3ML NEB HHN SCH ×3 (02:15→14:32)
[2018-12-27 04:00] VITALS: BP 137/65
[2018-12-27] MEDS: MORPHINE SULFATE 2 MG/ML CPJ (NOT FOR IM USE) IV PRN ×2 (05:35→10:41)
[2018-12-27] MEDS: CLONIDINE 0.2MG TABLET PO SCH ×2 (05:35→15:00)
[2018-12-27] MEDS: SODIUM CHLORIDE 0.9% INJ 3ML FLUSH IVF SCH (05:35)
[2018-12-27] MEDS: HYDRALAZINE HCL 100MG TABLET PO SCH ×2 (05:35→15:00)
[2018-12-27 08:00] VITALS: BP 147/70
[2018-12-27] MEDS: NIFEDIPINE XL 90MG TAB PO SCH (09:09)
[2018-12-27] MEDS: GUAIFENESIN 600MG ER TABLET PO SCH (09:09)
[2018-12-27] MEDS: OSELTAMIVIR 30MG CAPSULE PO SCH (09:09)
[2018-12-27 12:00] VITALS: BP 138/69
[2018-12-27 14:13] VITALS: BP 138/69
[2018-12-27 14:59] LABS: BASOPHILS % 0.4 % (0.0-2.0); EOSINOPHILS % 1.8 % (0.0-5.0); HEMATOCRIT. 27.5 % (42.0-52.0); HEMOGLOBIN. 9.2 g/dL (14.0-18.0); LYMPHOCYTES % 26.2 % (20.0-50.0); MEAN CORPUSCULAR HEMOGLOBIN 27.7 pg (28.0-32.0); MEAN CORPUSCULAR VOLUME 82.5 fL (80.0-94.0); MEAN PLATELET VOLUME 8.3 fl (7.4-10.4); NEUTROPHILS % 62.6 % (40.0-76.0); PLATELET 177 x1000/uL (130-400); RED BLOOD CELL COUNT 3.33 mill/uL (4.7-6.1); RED CELL DISTRIBUTION WIDTH 17.7 % (11.6-14.6)
[2018-12-27 15:01] LABS: PHOSPHORUS 3.7 mg/dL (2.5-4.9)
== END 2018-12-27 16:08 | DRG 871 ==
LOC: ER 11:45 → 7WST 13:49 → EDBEDREQSVC 13:54 → EDBEDREQ 13:54 → ENRESERV 19:59
PROVIDERS: ADMIT Internal Medicine; ATTEND Internal Medicine
DX: A41.51 Sepsis due to Escherichia coli [E. coli] (principal); J96.00 Acute respiratory failure, unspecified whether with hypoxia or hypercapnia; I13.0 Hypertensive heart and chronic kidney disease with heart failure and stage 1 through stage 4 chronic kidney disease, or unspecified chronic kidney disease; N17.9 Acute kidney failure, unspecified; N39.0 Urinary tract infection, site not specified; I50.32 Chronic diastolic (congestive) heart failure; N18.4 Chronic kidney disease, stage 4 (severe); A41.89 Other specified sepsis; J10.1 Influenza due to other identified influenza virus with other respiratory manifestations; B96.89 Other specified bacterial agents as the cause of diseases classified elsewhere; E11.22 Type 2 diabetes mellitus with diabetic chronic kidney disease; F03.90 Unspecified dementia, unspecified severity, without behavioral disturbance, psychotic disturbance, mood disturbance, and anxiety; I25.10 Atherosclerotic heart disease of native coronary artery without angina pectoris; I48.91 Unspecified atrial fibrillation; J44.9 Chronic obstructive pulmonary disease, unspecified; B96.4 Proteus (mirabilis) (morganii) as the cause of diseases classified elsewhere; D64.9 Anemia, unspecified; E66.9 Obesity, unspecified; F32.9 Major depressive disorder, single episode, unspecified; E11.42 Type 2 diabetes mellitus with diabetic polyneuropathy; G89.29 Other chronic pain; M54.5 Low back pain; H40.9 Unspecified glaucoma; K81.9 Cholecystitis, unspecified; Z79.4 Long term (current) use of insulin; Z82.49 Family history of ischemic heart disease and other diseases of the circulatory system; Z86.718 Personal history of other venous thrombosis and embolism; Z99.2 Dependence on renal dialysis; Z79.899 Other long term (current) drug therapy; Z79.82 Long term (current) use of aspirin
CPT/HCPCS: 36415; 71045; 80048; 80202; 81003; 82550; 82553; 82962; 83605; 83735; 83880; 84100; 84145; 84484; 87077; 87186; 87804; 93005; 93970; 94640; 99285; J0360; J1650; J2270; J2405; J2543; J3370; J7030; J7060; J7620

== ENCOUNTER 2019-02-17 05:11 | Inpatient (IN) | payer MEDICAID, MEDICARE ==
[~2019-02-17] VITALS: Ht 185.4 cm; Wt 99.3 kg
[~2019-02-17 05:11] MED LIST changes: +ASPI-1393 PO; +CLON-457 PO; +DIPH25CA83 PO; +DOCU-138 PO; +DOXA8TAB2 PO; +HYDR-4009 PO; +HYDR100T26 PO; +IPRA3AMP9 HHN; +LOV120 SQ; +NIFE90TA2 PO; -OMEP40CA34 PO; +POLY15DR31 BOTHEYE; +POLY17PO3 PO; -PREG75CA PO
[2019-02-17] MEDS ORDERED: ONDANSETRON HCL 4MG/2ML INJ IV STA (06:27)
[2019-02-17] MEDS ORDERED: SODIUM CHLORIDE 0.9% 1,000 ML IV ONE (06:27)
[2019-02-17] MEDS ORDERED: MORPHINE SULFATE 4 MG/ML CPJ (NOT FOR IM USE) IV STA (06:27)
[2019-02-17 08:03] LABS: BASOPHILS % 0.1 % (0.0-2.0); EOSINOPHILS % 0.6 % (0.0-5.0); HEMATOCRIT. 29.5 % (42.0-52.0); HEMOGLOBIN. 9.8 g/dL (14.0-18.0); LYMPHOCYTES % 8.6 % (20.0-50.0); MEAN CORPUSCULAR HEMOGLOBIN 27.3 pg (28.0-32.0); MEAN CORPUSCULAR VOLUME 82.4 fL (80.0-94.0); MEAN PLATELET VOLUME 8.3 fl (7.4-10.4); MONOCYTES % 6.1 % (2.0-8.0); NEUTROPHILS % 84.6 % (40.0-76.0); PLATELET 252 x1000/uL (130-400); RED BLOOD CELL COUNT 3.58 mill/uL (4.7-6.1); RED CELL DISTRIBUTION WIDTH 17.2 % (11.6-14.6)
[2019-02-17 08:05] LABS: CHLORIDE 105 mEq/L (98-107)
[2019-02-17 09:11] LABS: BG BASE EXCESS -3.8 mmol/L (-2.0-2.0); BG CARBOXYHEMOGLOBIN 0.5 % (0.5-1.5); BG DEOXYHEMOGLOBIN 11.2 % (0.0-5.0); BG FRACTION INSPIRED OXYGEN 21; BG HCO3 ACT 21.4 mmol/L (22.0-26.0); BG METHEMOGLOBIN 0.2 % (0.0-1.5); BG OXYGEN SATURATION 88.7 % (92.0-98.5); BG OXYHEMOGLOBIN 88.1 % (94.0-97.0); BG PCO2 39.2 mmHg (35.0-45.0); BG PH 7.355 (7.350-7.450); BG PO2 55.7 mmHg (75.0-100.0); BG SAMPLE SITE RIGHT RADIAL; BG TOTAL HEMOGLOBIN 9.7 g/dL (12.0-18.0); BG VENT MODE ROOM AIR
[2019-02-17] MEDS ORDERED: NA PHOS,M-B/NA PHOS,DI-BA ENEMA 118ML PR PRN (10:00)
[2019-02-17] MEDS ORDERED: ONDANSETRON HCL 4MG/2ML INJ IV PRN (10:00)
[2019-02-17] MEDS ORDERED: LORAZEPAM 2MG/ML CPJ IV PRN (10:00)
[2019-02-17] MEDS ORDERED: IPRATROPIUM/ALBUTEROL 0.5-3(2.5)MG/3ML NEB NEB PRN (10:00)
[2019-02-17] MEDS ORDERED: ACETAMINOPHEN 325MG TABLET PO PRN (10:00)
[2019-02-17] MEDS ORDERED: GUAIFENESIN 200MG/10ML SUGAR FREE UDC PO PRN (10:00)
[2019-02-17] MEDS ORDERED: MAGNESIUM/ALUMINUM HYDROXIDE/SIMETHICONE 30ML UDC PO PRN (10:00)
[2019-02-17] MEDS ORDERED: DIPHENHYDRAMINE 50MG/ML VIAL IV PRN (10:00)
[2019-02-17] MEDS ORDERED: DOCUSATE SODIUM 100MG CAPSULE PO PRN (10:00)
[2019-02-17] MEDS ORDERED: CLONIDINE 0.1MG TABLET PO PRN (10:00)
[2019-02-17 11:53] VITALS: BP 164/84
[2019-02-17 12:00] VITALS: BP 164/84
[2019-02-17] MEDS: ENOXAPARIN 40MG/0.4ML SYR SUBCUT SCH (13:20)
[2019-02-17] MEDS: MORPHINE SULFATE 2 MG/ML CPJ (NOT FOR IM USE) IV PRN ×2 (13:21→21:18)
[2019-02-17] MEDS ORDERED: LEVOFLOXACIN 500MG PREMIX 100 ML IV SCH (14:00)
[2019-02-17] MEDS: SODIUM CHLORIDE 0.45% 1,000 ML IV SCH (15:22)
[2019-02-17 16:00] VITALS: BP 155/73
[2019-02-17] MEDS ORDERED: DEXTROSE 50% WATER 50ML SYRINGE IV PRN (19:45)
[2019-02-17 20:00] VITALS: BP 155/68
[2019-02-17] MEDS: INSULIN LISPRO 100 UNITS/ML SUBCUT SCH (21:00)
[2019-02-17] MEDS: BLOOD SUGAR DIAGNOSTIC STRIP TEST SCH (21:18)
[2019-02-17] MEDS: HYDRALAZINE HCL 100MG TABLET PO SCH (21:19)
[2019-02-17] MEDS: DILTIAZEM HCL 90MG TABLET PO SCH (21:19)
[2019-02-17] MEDS: CLONIDINE 0.1MG TABLET PO SCH (21:20)
[2019-02-17] MEDS: DOXAZOSIN MESYLATE 4MG TABLET PO SCH (22:24)
[2019-02-18] VITALS: BP 132/59
[2019-02-18] MEDS: MORPHINE SULFATE 2 MG/ML CPJ (NOT FOR IM USE) IV PRN ×4 (02:46→18:05)
[2019-02-18 04:00] VITALS: BP 136/57
[2019-02-18] MEDS: HYDRALAZINE HCL 100MG TABLET PO SCH ×3 (06:00→22:03)
[2019-02-18] MEDS: DILTIAZEM HCL 90MG TABLET PO SCH ×3 (06:00→17:12)
[2019-02-18] MEDS: CLONIDINE 0.1MG TABLET PO SCH ×3 (06:00→18:00)
[2019-02-18] MEDS: BLOOD SUGAR DIAGNOSTIC STRIP TEST SCH ×4 (06:07→21:00)
[2019-02-18] MEDS: INSULIN LISPRO 100 UNITS/ML SUBCUT SCH ×4 (06:22→22:42)
[2019-02-18 07:13] LABS: CHLORIDE 110 mEq/L (98-107)
[2019-02-18 07:26] LABS: PHOSPHORUS 4.2 mg/dL (2.5-4.9)
[2019-02-18 07:27] LABS: LDL CHOLESTEROL 49 mg/dL (5-100)
[2019-02-18 07:28] LABS: HDL CHOLESTEROL 46 mg/dL (40-59); T4 FREE 1.09 ng/dL (0.76-1.46)
[2019-02-18 07:32] LABS: BASOPHILS % 0.3 % (0.0-2.0); EOSINOPHILS % 4.9 % (0.0-5.0); HEMATOCRIT. 23.2 % (42.0-52.0); HEMOGLOBIN. 7.7 g/dL (14.0-18.0); LYMPHOCYTES % 28.3 % (20.0-50.0); MEAN CORPUSCULAR HEMOGLOBIN 27.7 pg (28.0-32.0); MEAN CORPUSCULAR VOLUME 82.9 fL (80.0-94.0); MEAN PLATELET VOLUME 8.5 fl (7.4-10.4); MONOCYTES % 10.6 % (2.0-8.0); NEUTROPHILS % 55.9 % (40.0-76.0); PLATELET 194 x1000/uL (130-400); RED BLOOD CELL COUNT 2.79 mill/uL (4.7-6.1); RED CELL DISTRIBUTION WIDTH 16.9 % (11.6-14.6)
[2019-02-18 08:00] VITALS: BP 130/53
[2019-02-18] MEDS: ASPIRIN 81MG EC TABLET PO SCH (09:04)
[2019-02-18] MEDS: ENOXAPARIN 40MG/0.4ML SYR SUBCUT SCH (09:04)
[2019-02-18] MEDS: SODIUM CHLORIDE 0.45% 1,000 ML IV SCH ×2 (09:14→18:12)
[2019-02-18 11:40] VITALS: BP 135/47
[2019-02-18] MEDS: LEVOFLOXACIN 250MG PREMIX 50 ML IV SCH ×2 (14:00→15:54)
[2019-02-18] MEDS: HYDROCODONE/ACETAMINOPHEN 10/325MG TABLET PO PRN ×2 (15:03→22:26)
[2019-02-18 16:00] VITALS: BP 106/55
[2019-02-18 20:00] VITALS: BP 138/54
[2019-02-18] MEDS: DOXAZOSIN MESYLATE 4MG TABLET PO SCH (22:02)
[2019-02-19] VITALS (7 sets, daily range): BP systolic 147–174; BP diastolic 52–65
[2019-02-19] MEDS: CLONIDINE 0.1MG TABLET PO SCH ×4 (01:04→18:29)
[2019-02-19] MEDS: DILTIAZEM HCL 90MG TABLET PO SCH ×4 (01:04→18:29)
[2019-02-19] MEDS: HYDROCODONE/ACETAMINOPHEN 10/325MG TABLET PO PRN ×4 (02:40→21:30)
[2019-02-19] MEDS: MORPHINE SULFATE 2 MG/ML CPJ (NOT FOR IM USE) IV PRN ×2 (04:03→07:03)
[2019-02-19] MEDS: BLOOD SUGAR DIAGNOSTIC STRIP TEST SCH (06:48)
[2019-02-19] MEDS: HYDRALAZINE HCL 100MG TABLET PO SCH ×3 (06:48→21:07)
[2019-02-19] MEDS: INSULIN LISPRO 100 UNITS/ML SUBCUT SCH (06:55)
[2019-02-19] MEDS: ASPIRIN 81MG EC TABLET PO SCH (09:33)
[2019-02-19] MEDS: ENOXAPARIN 40MG/0.4ML SYR SUBCUT SCH (09:33)
[2019-02-19 20:44] LABS: BASOPHILS % 0.6 % (0.0-2.0); EOSINOPHILS % 4.6 % (0.0-5.0); HEMATOCRIT. 25.5 % (42.0-52.0); HEMOGLOBIN. 8.4 g/dL (14.0-18.0); LYMPHOCYTES % 20.7 % (20.0-50.0); MEAN CORPUSCULAR VOLUME 81.6 fL (80.0-94.0); MEAN PLATELET VOLUME 8.2 fl (7.4-10.4); MONOCYTES % 10.3 % (2.0-8.0); NEUTROPHILS % 63.8 % (40.0-76.0); PLATELET 222 x1000/uL (130-400); RED BLOOD CELL COUNT 3.13 mill/uL (4.7-6.1); RED CELL DISTRIBUTION WIDTH 16.6 % (11.6-14.6)
[2019-02-19] MEDS: DOXAZOSIN MESYLATE 4MG TABLET PO SCH (21:06)
[2019-02-20] VITALS: BP 152/73
[2019-02-20] MEDS: CLONIDINE 0.1MG TABLET PO SCH ×3 (00:59→12:26)
[2019-02-20] MEDS: DILTIAZEM HCL 90MG TABLET PO SCH ×3 (01:00→12:26)
[2019-02-20] MEDS: HYDROCODONE/ACETAMINOPHEN 10/325MG TABLET PO PRN ×3 (01:49→09:51)
[2019-02-20 04:00] VITALS: BP 177/76
[2019-02-20] MEDS: HYDRALAZINE HCL 100MG TABLET PO SCH ×2 (05:48→14:46)
[2019-02-20 08:00] VITALS: BP 180/77
[2019-02-20] MEDS: ASPIRIN 81MG EC TABLET PO SCH (08:24)
[2019-02-20] MEDS: ENOXAPARIN 40MG/0.4ML SYR SUBCUT SCH (08:25)
[2019-02-20] MEDS: MORPHINE SULFATE 2 MG/ML CPJ (NOT FOR IM USE) IV PRN (08:32)
[2019-02-20 12:00] VITALS: BP 159/63
[2019-02-20 14:20] VITALS: BP 159/63
[2019-02-20] MEDS: LEVOFLOXACIN 250MG PREMIX 50 ML IV SCH (14:47)
[2019-02-20 16:00] VITALS: BP 112/61
[2019-02-21] MEDS ORDERED: LEVOFLOXACIN 250MG TABLET PO SCH (11:00)
== END 2019-02-20 16:55 | DRG 683 ==
LOC: ER 06:14 → ENRESERV 10:28 → 5WST 11:56
PROVIDERS: ADMIT Internal Medicine; ATTEND Internal Medicine
PROC: 4B02XSZ Measurement of Cardiac Pacemaker, External Approach (ICD-10-PCS; principal; 2019-02-19)
DX: N17.0 Acute kidney failure with tubular necrosis (principal); E46 Unspecified protein-calorie malnutrition; I13.0 Hypertensive heart and chronic kidney disease with heart failure and stage 1 through stage 4 chronic kidney disease, or unspecified chronic kidney disease; E86.0 Dehydration; N18.4 Chronic kidney disease, stage 4 (severe); D63.1 Anemia in chronic kidney disease; E11.22 Type 2 diabetes mellitus with diabetic chronic kidney disease; E78.5 Hyperlipidemia, unspecified; F02.80 Dementia in other diseases classified elsewhere, unspecified severity, without behavioral disturbance, psychotic disturbance, mood disturbance, and anxiety; G20 Parkinson's disease; G62.9 Polyneuropathy, unspecified; I25.10 Atherosclerotic heart disease of native coronary artery without angina pectoris; I48.0 Paroxysmal atrial fibrillation; J44.9 Chronic obstructive pulmonary disease, unspecified; I50.9 Heart failure, unspecified; K21.9 Gastro-esophageal reflux disease without esophagitis; F32.9 Major depressive disorder, single episode, unspecified; H40.9 Unspecified glaucoma; G89.29 Other chronic pain; I49.5 Sick sinus syndrome; K59.00 Constipation, unspecified; S30.0XXA Contusion of lower back and pelvis, initial encounter; X58.XXXA Exposure to other specified factors, initial encounter; Z86.718 Personal history of other venous thrombosis and embolism; Z95.0 Presence of cardiac pacemaker; Z79.4 Long term (current) use of insulin; Z79.899 Other long term (current) drug therapy; Z82.49 Family history of ischemic heart disease and other diseases of the circulatory system; Z90.49 Acquired absence of other specified parts of digestive tract; Y93.89 Activity, other specified; Y92.89 Other specified places as the place of occurrence of the external cause; Y99.8 Other external cause status; Z68.28 Body mass index [BMI] 28.0-28.9, adult
CPT/HCPCS: 36415; 36600; 71045; 80048; 80061; 82375; 82570; 82805; 82962; 83735; 83880; 83935; 84100; 84134; 84156; 84439; 84443; 84484; 87493; 93005; 99285; J1650; J1815; J1956; J2270; J2405; J7030

== ENCOUNTER 2020-10-17 15:25 | Inpatient (IN) | payer MEDICARE, MEDICAID ==
[~2020-10-17] VITALS: Ht 185.4 cm; Wt 85.7 kg
[~2020-10-17 15:25] MED LIST changes: -ASPI-1393 PO; +ASPI-1497 PO; -CHOL200010 PO; -DIPH25CA83 PO; -DONE5TAB7 PO; -DUTA0.5C2 PO; -FERR-63 PO; -INSU100I19 SQ; -IPRA3AMP9 HHN; -LIDO700A TP; -LORA-249 PO; -NATE60TA PO; -NIFE90TA2 PO; -OMEP20TA2 PO; -POLY15DR31 BOTHEYE; -POLY17PO3 PO
[2020-10-17] MEDS ORDERED: LABETALOL 5MG/ML SYR 20 MG/4 ML SYRINGE IV ONE ×2 (18:00→20:45)
[2020-10-17] MEDS ORDERED: SODIUM CHLORIDE 0.9% 250 ML IV ONE (18:00)
[2020-10-17 19:45] LABS: BASOPHILS % 0.4 % (0.0-2.0); EOSINOPHILS % 0.9 % (0.0-5.0); HEMATOCRIT. 36.5 % (42.0-52.0); LYMPHOCYTES % 19.4 % (20.0-50.0); MEAN CORPUSCULAR HEMOGLOBIN 29.3 pg (28.0-32.0); MEAN CORPUSCULAR VOLUME 89.5 fL (80.0-94.0); MEAN PLATELET VOLUME 8.5 fl (7.4-10.4); MONOCYTES % 6.2 % (2.0-8.0); NEUTROPHILS % 73.1 % (40.0-76.0); PLATELET 205 x1000/uL (130-400); RED BLOOD CELL COUNT 4.08 mill/uL (4.7-6.1); RED CELL DISTRIBUTION WIDTH 16.2 % (11.6-14.6)
[2020-10-17 19:55] LABS: PROTHROMBIN TIME 11.1 sec (9.6-11.0)
[2020-10-17 20:09] LABS: CHLORIDE 113 mEq/L (98-107)
[2020-10-17] MEDS ORDERED: FUROSEMIDE 40MG/4ML VIAL IVP ONE (20:30)
[2020-10-17 21:17] LABS: CLARITY URINE CLEAR (CLEAR); COLOR URINE YELLOW (YELLOW); KETONES URINE TRACE (NEGATIVE); LEUKOCYTE ESTERASE URINE NEGATIVE (NEGATIVE); NITRITE URINE NEGATIVE (NEGATIVE); OCCULT BLOOD URINE TRACE (NEGATIVE); PH URINE 5.5 (4.5-8.0); PROTEIN URINE 3+ (NEGATIVE)
[2020-10-18] MEDS ORDERED: HYDROCODONE/ACETAMINOPHEN 5/325MG TABLET PO PRN
[2020-10-18] MEDS ORDERED: ONDANSETRON HCL 4MG/2ML INJ IV PRN
[2020-10-18] MEDS ORDERED: MAGNESIUM/ALUMINUM HYDROXIDE/SIMETHICONE 30ML UDC PO PRN
[2020-10-18] MEDS: METOPROLOL TARTRATE 25MG TABLET PO SCH ×3 (01:26→21:45)
[2020-10-18] MEDS: AMLODIPINE 10MG TABLET PO SCH (01:26)
[2020-10-18] MEDS: CLONIDINE 0.1MG TABLET PO PRN ×2 (02:33→08:43)
[2020-10-18] MEDS: MORPHINE SULFATE 2 MG/ML CPJ (NOT FOR IM USE) IV PRN ×2 (02:53→07:01)
[2020-10-18] MEDS: LORAZEPAM 2MG/ML CPJ IV PRN (04:11)
[2020-10-18 05:56] LABS: BASOPHILS % 0.6 % (0.0-2.0); EOSINOPHILS % 1.3 % (0.0-5.0); HEMATOCRIT. 36.4 % (42.0-52.0); HEMOGLOBIN. 12.3 g/dL (14.0-18.0); LYMPHOCYTES % 17.9 % (20.0-50.0); MEAN CORPUSCULAR HEMOGLOBIN 29.7 pg (28.0-32.0); MEAN PLATELET VOLUME 8.7 fl (7.4-10.4); MONOCYTES % 7.6 % (2.0-8.0); NEUTROPHILS % 72.6 % (40.0-76.0); PLATELET 181 x1000/uL (130-400); RED BLOOD CELL COUNT 4.13 mill/uL (4.7-6.1); RED CELL DISTRIBUTION WIDTH 15.2 % (11.6-14.6)
[2020-10-18] MEDS: FERROUS SULFATE 325MG TABLET PO SCH ×2 (08:43→08:55)
[2020-10-18] MEDS ORDERED: ENOXAPARIN 30MG/0.3ML SYR SUBCUT SCH (09:00)
[2020-10-18] MEDS: HYDRALAZINE 20MG/ML VIAL IV PRN ×2 (09:45→16:26)
[2020-10-18] MEDS ORDERED: LABETALOL 5MG/ML SYR 20 MG/4 ML SYRINGE IV PRN (10:00)
[2020-10-18] MEDS: SODIUM CHLORIDE 0.45% 1,000 ML IV SCH (19:12)
[2020-10-18] MEDS ORDERED: ENOXAPARIN 100MG/ML SYR SUBCUT SCH (21:00)
[2020-10-18 23:30] VITALS: BP 166/80
[2020-10-19] VITALS: BP 166/75
[2020-10-19] MEDS: HYDRALAZINE 20MG/ML VIAL IV PRN ×3 (01:08→20:38)
[2020-10-19] MEDS: SODIUM CHLORIDE 0.45% 1,000 ML IV SCH (01:43)
[2020-10-19] MEDS ORDERED: CLON0.1T MT (03:41)
[2020-10-19] MEDS ORDERED: GABA300C PO (03:41)
[2020-10-19] MEDS ORDERED: LOV120 SQ (03:44)
[2020-10-19] MEDS ORDERED: LISI20TA31 MT (03:58)
[2020-10-19] MEDS ORDERED: TOPUD MT (03:58)
[2020-10-19] MEDS ORDERED: ASCO500C15 MT (03:58)
[2020-10-19] MEDS ORDERED: FURO-151 MT (03:58)
[2020-10-19] MEDS ORDERED: METO-539 MT (03:58)
[2020-10-19] MEDS ORDERED: SENN-257 MT (03:58)
[2020-10-19] MEDS ORDERED: INSU100I28 SQ (03:58)
[2020-10-19] MEDS ORDERED: THIA250T3 PO (03:58)
[2020-10-19] MEDS ORDERED: FOLI-43 MT (03:58)
[2020-10-19] MEDS ORDERED: FERR325T6 MT (03:58)
[2020-10-19] MEDS ORDERED: INSHUMSS SUBCUT (03:58)
[2020-10-19] MEDS ORDERED: ACET-2708 MT (03:58)
[2020-10-19 04:00] VITALS: BP 178/91
[2020-10-19] MEDS: LORAZEPAM 2MG/ML CPJ IV PRN (04:26)
[2020-10-19 06:48] LABS: BASOPHILS % 0.5 % (0.0-2.0); EOSINOPHILS % 2.3 % (0.0-5.0); HEMATOCRIT. 34.8 % (42.0-52.0); HEMOGLOBIN. 11.8 g/dL (14.0-18.0); MEAN CORPUSCULAR HEMOGLOBIN 29.7 pg (28.0-32.0); MEAN CORPUSCULAR VOLUME 87.8 fL (80.0-94.0); MEAN PLATELET VOLUME 8.8 fl (7.4-10.4); MONOCYTES % 7.4 % (2.0-8.0); NEUTROPHILS % 72.8 % (40.0-76.0); PLATELET 199 x1000/uL (130-400); RED BLOOD CELL COUNT 3.97 mill/uL (4.7-6.1); RED CELL DISTRIBUTION WIDTH 15.4 % (11.6-14.6)
[2020-10-19] MEDS: AMLODIPINE 10MG TABLET PO SCH (08:40)
[2020-10-19] MEDS: METOPROLOL TARTRATE 25MG TABLET PO SCH ×2 (08:41→20:33)
[2020-10-19] MEDS: FERROUS SULFATE 325MG TABLET PO SCH (08:41)
[2020-10-19 12:30] VITALS: BP 159/74
[2020-10-19] MEDS: LABETALOL 5MG/ML SYR 20 MG/4 ML SYRINGE IV SCH ×2 (13:39→19:06)
[2020-10-19 16:00] VITALS: BP 144/78
[2020-10-19] MEDS ORDERED: ENOXAPARIN 100MG/ML SYR SUBCUT SCH (16:00)
[2020-10-19] MEDS ORDERED: LABETALOL 5MG/ML SYR 20 MG/4 ML SYRINGE IV PRN (16:00)
[2020-10-19 20:00] VITALS: BP 165/75
[2020-10-20] VITALS (7 sets, daily range): BP systolic 144–198; BP diastolic 72–87
[2020-10-20] MEDS: LABETALOL 5MG/ML SYR 20 MG/4 ML SYRINGE IV SCH ×3 (00:38→13:06)
[2020-10-20] MEDS: FERROUS SULFATE 325MG TABLET PO SCH (08:28)
[2020-10-20] MEDS: AMLODIPINE 10MG TABLET PO SCH (08:29)
[2020-10-20] MEDS: METOPROLOL TARTRATE 25MG TABLET PO SCH (08:30)
[2020-10-20] MEDS: SODIUM CHLORIDE 0.45% 1,000 ML IV SCH (11:00)
[2020-10-20] MEDS ORDERED: ENALAPRIL 1.25MG/ML VIAL 1ML IV SCH (12:26)
[2020-10-20] MEDS ORDERED: HYDRALAZINE HCL 100MG TABLET PO SCH (15:30)
[2020-10-20] MEDS ORDERED: LOSARTAN POTASSIUM 100 MG TABLET PO SCH (17:00)
[2020-10-20] MEDS ORDERED: CLONIDINE 0.1MG TABLET PO NR (17:00)
[2020-10-20] MEDS ORDERED: NIFEDIPINE XL 60MG TAB PO SCH (21:00)
[2020-10-20] MEDS ORDERED: CLONIDINE 0.1MG TABLET PO SCH (22:00)
== END 2020-10-20 19:45 | DRG 682 ==
LOC: ER 15:35 → MICUSO 21:19 → EDBEDREQ 21:22 → EDBEDREQTM 21:22 → 6WST 10-18 22:12
PROVIDERS: ADMIT Internal Medicine Nephrology; ATTEND Internal Medicine Nephrology
DX: N17.9 Acute kidney failure, unspecified (principal); G93.41 Metabolic encephalopathy; I16.9 Hypertensive crisis, unspecified; I13.0 Hypertensive heart and chronic kidney disease with heart failure and stage 1 through stage 4 chronic kidney disease, or unspecified chronic kidney disease; E11.22 Type 2 diabetes mellitus with diabetic chronic kidney disease; E87.8 Other disorders of electrolyte and fluid balance, not elsewhere classified; I16.0 Hypertensive urgency; N18.9 Chronic kidney disease, unspecified; D64.9 Anemia, unspecified; I50.9 Heart failure, unspecified; J44.9 Chronic obstructive pulmonary disease, unspecified; K21.9 Gastro-esophageal reflux disease without esophagitis; R62.7 Adult failure to thrive; Z95.0 Presence of cardiac pacemaker; Z79.899 Other long term (current) drug therapy; Z68.24 Body mass index [BMI] 24.0-24.9, adult; Z86.718 Personal history of other venous thrombosis and embolism; Z79.01 Long term (current) use of anticoagulants
CPT/HCPCS: 36415; 71045; 80048; 80053; 81003; 82040; 82962; 83735; 83880; 84134; 84484; 85025; 92610; 93005; 99285; C1893; J0360; J1650; J1940; J2060; J2270; J2405; J3490; J7050; A4315

== ENCOUNTER 2021-08-02 15:03 | Inpatient (IN) | payer MEDICARE, MEDICAID ==
[~2021-08-02] VITALS: Ht 185.4 cm; Wt 91.6 kg
[~2021-08-02 15:03] MED LIST changes: +ACET-2708 MT; +ASCO500C15 MT; -BIMA2.5D4 EACHEYE; -CLON-457 PO; +CLON0.1T MT; -CYCL30DR EACHEYE; -DOCU-138 PO; -DOXA8TAB2 PO; +FERR325T6 MT; +FOLI-43 MT; +FURO-151 MT; +GABA300C PO; -GABA600T PO; -HYDR100T26 PO; +INSHUMSS SUBCUT; +INSU100I28 SQ; +LISI20TA31 MT; +METO-539 MT; +SENN-257 MT; +THIA250T3 PO; +TOPUD MT
[2021-08-02 18:11] LABS: BASOPHILS % 0.5 % (0.0-2.0); EOSINOPHILS % 3.3 % (0.0-5.0); HEMATOCRIT. 24.2 % (42.0-52.0); HEMOGLOBIN. 7.9 g/dL (14.0-18.0); MEAN CORPUSCULAR HEMOGLOBIN 27.3 pg (28.0-32.0); MEAN CORPUSCULAR VOLUME 83.9 fL (80.0-94.0); MEAN PLATELET VOLUME 7.4 fl (7.4-10.4); MONOCYTES % 9.6 % (2.0-8.0); NEUTROPHILS % 65.6 % (40.0-76.0); PLATELET 153 x1000/uL (130-400); RED BLOOD CELL COUNT 2.88 mill/uL (4.7-6.1); RED CELL DISTRIBUTION WIDTH 16.7 % (11.6-14.6)
[2021-08-02 18:17] LABS: CHLORIDE 111 mEq/L (98-107)
[2021-08-02 18:27] LABS: ETHANOL BLOOD < 10 mg/dL
[2021-08-02] MEDS: ACETAMINOPHEN 325MG TABLET PO NR (20:00)
[2021-08-02 20:18] LABS: *AMPHETAMINES SCREEN URINE NEGATIVE (NEGATIVE); *BARBITURATES SCREEN URINE NEGATIVE (NEGATIVE); *BENZODIAZEPINES SCREEN URINE NEGATIVE (NEGATIVE); *COCAINE SCREEN URINE NEGATIVE (NEGATIVE); CANNABINOID URINE SCREEN NEGATIVE (NEGATIVE); METHADONE URINE SCREEN NEGATIVE (NEGATIVE); OPIATES URINE SCREEN PRESUMTIVE POSITIVE (NEGATIVE); PHENCYCLIDINE URINE SCREEN NEGATIVE (NEGATIVE)
[2021-08-02] MEDS ORDERED: FUROSEMIDE 40MG/4ML VIAL IVP NR (20:39)
[2021-08-02] MEDS ORDERED: ONDANSETRON HCL 4MG/2ML INJ IV PRN (22:15)
[2021-08-02] MEDS ORDERED: LORAZEPAM 2MG/ML CPJ IV PRN (22:15)
[2021-08-02] MEDS ORDERED: ACETAMINOPHEN 325MG TABLET PO PRN (22:15)
[2021-08-02] MEDS ORDERED: IPRATROPIUM/ALBUTEROL 0.5-3(2.5)MG/3ML NEB NEB PRN (22:15)
[2021-08-02] MEDS: HYDROCODONE/ACETAMINOPHEN 5/325MG TABLET PO PRN (23:44)
[2021-08-02] MEDS ORDERED: ONDANSETRON HCL 4MG TABLET PO PRN (23:44)
[2021-08-02] MEDS ORDERED: LORAZEPAM 0.5MG TABLET PO PRN (23:45)
[2021-08-02] MEDS ORDERED: FUROSEMIDE 40MG TABLET PO NR (23:45)
[2021-08-02] MEDS: CLONIDINE 0.1MG TABLET PO PRN (23:45)
[2021-08-03] VITALS (7 sets, daily range): BP systolic 117–184; BP diastolic 69–81
[2021-08-03] MEDS: ACETAMINOPHEN 325MG TABLET PO NR (00:03)
[2021-08-03] MEDS ORDERED: DEXTROSE 50% WATER 50ML SYRINGE IV PRN (02:15)
[2021-08-03 05:50] LABS: CLARITY URINE CLOUDY (CLEAR); COLOR URINE YELLOW (YELLOW); KETONES URINE NEGATIVE (NEGATIVE); LEUKOCYTE ESTERASE URINE 3+ (NEGATIVE); NITRITE URINE NEGATIVE (NEGATIVE); OCCULT BLOOD URINE NEGATIVE (NEGATIVE); PH URINE 6.5 (4.5-8.0); PROTEIN URINE 1+ (NEGATIVE); UROBILINOGEN URINE 0.2 E.U./dL (0.2-1.0)
[2021-08-03] MEDS: BLOOD SUGAR DIAGNOSTIC STRIP TEST SCH ×4 (06:28→21:00)
[2021-08-03 07:22] LABS: BASOPHILS % 0.7 % (0.0-2.0); EOSINOPHILS % 3.4 % (0.0-5.0); HEMATOCRIT. 24.9 % (42.0-52.0); HEMOGLOBIN. 8.2 g/dL (14.0-18.0); LYMPHOCYTES % 23.9 % (20.0-50.0); MEAN CORPUSCULAR HEMOGLOBIN 27.6 pg (28.0-32.0); MEAN CORPUSCULAR VOLUME 83.5 fL (80.0-94.0); MEAN PLATELET VOLUME 7.4 fl (7.4-10.4); MONOCYTES % 12.7 % (2.0-8.0); NEUTROPHILS % 59.3 % (40.0-76.0); PLATELET 161 x1000/uL (130-400); RED BLOOD CELL COUNT 2.98 mill/uL (4.7-6.1); RED CELL DISTRIBUTION WIDTH 16.9 % (11.6-14.6)
[2021-08-03] MEDS ORDERED: ENOXAPARIN 30MG/0.3ML SYR SUBCUT SCH (08:00)
[2021-08-03] MEDS: AMLODIPINE 10MG TABLET PO SCH (08:09)
[2021-08-03] MEDS: FUROSEMIDE 40MG TABLET PO SCH (08:09)
[2021-08-03] MEDS: HYDROCODONE/ACETAMINOPHEN 5/325MG TABLET PO PRN (08:10)
[2021-08-03] MEDS: FOLIC ACID 1MG TABLET PO SCH (08:10)
[2021-08-03] MEDS: ASPIRIN 81MG EC TABLET PO SCH (08:10)
[2021-08-03] MEDS: INSULIN LISPRO 100 UNITS/ML SUBCUT SCH ×4 (08:13→22:12)
[2021-08-03] MEDS ORDERED: NALOXONE HCL 0.4MG/ML VIAL IV PRN (09:45)
[2021-08-03] MEDS ORDERED: ENOXAPARIN 60MG/0.6ML SYR SUBCUT NR (10:00)
[2021-08-03] MEDS: FERROUS SULFATE 325MG TABLET PO SCH ×2 (12:27→17:43)
[2021-08-03] MEDS: CLONIDINE 0.1MG TABLET PO SCH ×3 (12:34→22:07)
[2021-08-03 14:37] LABS: TOTAL IRON BINDING CAPACITY 211 ug/dL (250-450)
[2021-08-03 15:27] LABS: FOLIC ACID (FOLATE) SERUM 17.4 ng/mL (>5.38)
[2021-08-03] MEDS: GABAPENTIN 300MG CAPSULE PO SCH (17:43)
[2021-08-03 20:52] LABS: PROTHROMBIN TIME 10.8 sec (9.6-11.0)
[2021-08-03] MEDS: INSULIN GLARGINE 100 UNITS/ML SUBCUT SCH (22:08)
[2021-08-04] VITALS: BP 190/81
[2021-08-04] MEDS: CLONIDINE 0.1MG TABLET PO PRN ×2 (00:17→09:04)
[2021-08-04 04:00] VITALS: BP 126/72
[2021-08-04] MEDS: CLONIDINE 0.1MG TABLET PO SCH ×3 (05:31→22:24)
[2021-08-04] MEDS: INSULIN LISPRO 100 UNITS/ML SUBCUT SCH ×4 (06:15→21:00)
[2021-08-04] MEDS: BLOOD SUGAR DIAGNOSTIC STRIP TEST SCH ×4 (06:15→21:52)
[2021-08-04 08:00] VITALS: BP 181/73
[2021-08-04] MEDS: THIAMINE HCL 100MG TABLET PO SCH (08:58)
[2021-08-04] MEDS: AMLODIPINE 10MG TABLET PO SCH (08:59)
[2021-08-04] MEDS: ASCORBIC ACID 500 MG TABLET PO SCH (08:59)
[2021-08-04] MEDS: FERROUS SULFATE 325MG TABLET PO SCH ×3 (08:59→18:05)
[2021-08-04] MEDS: SENNOSIDES 8.6MG TABLET PO SCH ×2 (08:59→09:00)
[2021-08-04] MEDS: FUROSEMIDE 40MG TABLET PO SCH ×2 (08:59→09:00)
[2021-08-04] MEDS: FOLIC ACID 1MG TABLET PO SCH (08:59)
[2021-08-04] MEDS: GABAPENTIN 300MG CAPSULE PO SCH ×2 (08:59→16:52)
[2021-08-04] MEDS: ASPIRIN 81MG EC TABLET PO SCH (08:59)
[2021-08-04] MEDS: ENOXAPARIN 100MG/ML SYR SUBCUT SCH (09:01)
[2021-08-04 12:00] VITALS: BP 177/68
[2021-08-04 16:00] VITALS: BP 169/66
[2021-08-04] MEDS ORDERED: CEFTRIAXONE 1 G PREMIX 50 ML IV SCH (17:45)
[2021-08-04] MEDS: FUROSEMIDE 40MG/4ML VIAL IVP SCH (18:00)
[2021-08-04 20:00] VITALS: BP 141/72
[2021-08-04] MEDS ORDERED: CEFTRIAXONE 1,000 MG in DEXTROSE 5% WATER 50 ML IV SCH (20:00)
[2021-08-04] MEDS: MUPIROCIN 2% OINT 22GM NS SCH (22:22)
[2021-08-04] MEDS: INSULIN GLARGINE 100 UNITS/ML SUBCUT SCH (22:22)
[2021-08-04 22:24] LABS: HEMATOCRIT 24.6 % (42.0-52.0); HEMOGLOBIN 8.1 g/dL (14.0-18.0); MEAN CORPUSCULAR HEMOGLOBIN 27.4 pg (28.0-32.0); MEAN CORPUSCULAR VOLUME 83.1 fL (80.0-94.0); PLATELET 156 x1000/uL (130-400); RED BLOOD CELL COUNT 2.96 mill/uL (4.7-6.1); RED CELL DISTRIBUTION WIDTH 16.8 % (11.6-14.6)
[2021-08-04 22:33] LABS: CHLORIDE 108 mEq/L (98-107)
[2021-08-04 22:40] LABS: TOTAL IRON BINDING CAPACITY 220 ug/dL (250-450)
[2021-08-05] VITALS: BP 178/63
[2021-08-05] MEDS: CLONIDINE 0.1MG TABLET PO PRN (02:16)
[2021-08-05 04:00] VITALS: BP 181/69
[2021-08-05] MEDS: CLONIDINE 0.1MG TABLET PO SCH ×3 (05:40→23:09)
[2021-08-05] MEDS: BLOOD SUGAR DIAGNOSTIC STRIP TEST SCH ×4 (06:45→21:00)
[2021-08-05 06:56] LABS: BASOPHILS % 0.6 % (0.0-2.0); EOSINOPHILS % 3.4 % (0.0-5.0); HEMATOCRIT. 23.3 % (42.0-52.0); HEMOGLOBIN. 7.8 g/dL (14.0-18.0); LYMPHOCYTES % 24.6 % (20.0-50.0); MEAN CORPUSCULAR HEMOGLOBIN 27.9 pg (28.0-32.0); MEAN PLATELET VOLUME 7.3 fl (7.4-10.4); MONOCYTES % 12.3 % (2.0-8.0); NEUTROPHILS % 59.1 % (40.0-76.0); PLATELET 157 x1000/uL (130-400); RED BLOOD CELL COUNT 2.81 mill/uL (4.7-6.1); RED CELL DISTRIBUTION WIDTH 16.6 % (11.6-14.6)
[2021-08-05 08:00] VITALS: BP 165/49
[2021-08-05] MEDS: INSULIN LISPRO 100 UNITS/ML SUBCUT SCH ×4 (08:03→23:10)
[2021-08-05] MEDS: FUROSEMIDE 40MG/4ML VIAL IVP SCH (09:00)
[2021-08-05] MEDS: SENNOSIDES 8.6MG TABLET PO SCH (09:00)
[2021-08-05] MEDS: GABAPENTIN 300MG CAPSULE PO SCH ×2 (09:32→17:45)
[2021-08-05] MEDS: THIAMINE HCL 100MG TABLET PO SCH (09:32)
[2021-08-05] MEDS: FOLIC ACID 1MG TABLET PO SCH (09:32)
[2021-08-05] MEDS: ASCORBIC ACID 500 MG TABLET PO SCH (09:32)
[2021-08-05] MEDS: ASPIRIN 81MG EC TABLET PO SCH (09:32)
[2021-08-05] MEDS: FERROUS SULFATE 325MG TABLET PO SCH ×3 (09:32→17:45)
[2021-08-05] MEDS: ENOXAPARIN 100MG/ML SYR SUBCUT SCH (09:33)
[2021-08-05] MEDS: AMLODIPINE 10MG TABLET PO SCH (09:33)
[2021-08-05] MEDS: MUPIROCIN 2% OINT 22GM NS SCH ×2 (09:34→23:11)
[2021-08-05 12:00] VITALS: BP 138/75
[2021-08-05 16:00] VITALS: BP 149/95
[2021-08-05] MEDS: MEROPENEM 500 MG in SODIUM CHLORIDE 0.9% 50 ML IV SCH (16:22)
[2021-08-05 20:00] VITALS: BP_SYST 140; BP_SYST 185; BP_DIAS 66
[2021-08-05] MEDS: INSULIN GLARGINE 100 UNITS/ML SUBCUT SCH (23:10)
[2021-08-06] VITALS: BP_SYST 142; BP_SYST 180; BP_DIAS 72
[2021-08-06 04:00] VITALS: BP_SYST 130; BP_SYST 183; BP_DIAS 73
[2021-08-06 06:24] LABS: BASOPHILS % 0.6 % (0.0-2.0); EOSINOPHILS % 3.7 % (0.0-5.0); LYMPHOCYTES % 26.7 % (20.0-50.0); MEAN CORPUSCULAR HEMOGLOBIN 27.7 pg (28.0-32.0); MEAN CORPUSCULAR VOLUME 82.8 fL (80.0-94.0); MEAN PLATELET VOLUME 7.7 fl (7.4-10.4); MONOCYTES % 12.6 % (2.0-8.0); NEUTROPHILS % 56.4 % (40.0-76.0); PLATELET 151 x1000/uL (130-400); RED CELL DISTRIBUTION WIDTH 16.5 % (11.6-14.6)
[2021-08-06] MEDS: MEROPENEM 500 MG in SODIUM CHLORIDE 0.9% 50 ML IV SCH ×2 (06:30→16:08)
[2021-08-06] MEDS: CLONIDINE 0.1MG TABLET PO SCH ×3 (06:30→22:04)
[2021-08-06] MEDS: BLOOD SUGAR DIAGNOSTIC STRIP TEST SCH ×4 (06:30→21:00)
[2021-08-06] MEDS: INSULIN LISPRO 100 UNITS/ML SUBCUT SCH ×4 (07:36→21:00)
[2021-08-06 08:00] VITALS: BP 174/54
[2021-08-06] MEDS: FUROSEMIDE 40MG/4ML VIAL IVP SCH (09:00)
[2021-08-06] MEDS: SENNOSIDES 8.6MG TABLET PO SCH (09:19)
[2021-08-06] MEDS: ASCORBIC ACID 500 MG TABLET PO SCH (09:19)
[2021-08-06] MEDS: ENOXAPARIN 100MG/ML SYR SUBCUT SCH (09:19)
[2021-08-06] MEDS: GABAPENTIN 300MG CAPSULE PO SCH ×2 (09:19→17:29)
[2021-08-06] MEDS: THIAMINE HCL 100MG TABLET PO SCH (09:19)
[2021-08-06] MEDS: FERROUS SULFATE 325MG TABLET PO SCH ×3 (09:19→17:29)
[2021-08-06] MEDS: ASPIRIN 81MG EC TABLET PO SCH (09:19)
[2021-08-06] MEDS: MUPIROCIN 2% OINT 22GM NS SCH ×2 (09:20→21:04)
[2021-08-06] MEDS: AMLODIPINE 10MG TABLET PO SCH (09:20)
[2021-08-06] MEDS: FOLIC ACID 1MG TABLET PO SCH (09:20)
[2021-08-06] MEDS ORDERED: SODIUM POLYSTYRENE SULFONATE 15 G/60 ML BOT PO NR (10:45)
[2021-08-06 12:00] VITALS: BP 138/72
[2021-08-06 16:00] VITALS: BP 174/61
[2021-08-06] MEDS: CLONIDINE 0.1MG TABLET PO PRN (17:29)
[2021-08-06 20:00] VITALS: BP 169/59
[2021-08-06] MEDS: MORPHINE SULFATE 2 MG/ML CPJ (NOT FOR IM USE) IV PRN (21:01)
[2021-08-06] MEDS: INSULIN GLARGINE 100 UNITS/ML SUBCUT SCH (22:04)
[2021-08-07] VITALS: BP 171/60
[2021-08-07 04:00] VITALS: BP 165/62
[2021-08-07] MEDS: MEROPENEM 500 MG in SODIUM CHLORIDE 0.9% 50 ML IV SCH (04:26)
[2021-08-07] MEDS: CLONIDINE 0.1MG TABLET PO SCH (04:35)
[2021-08-07] MEDS: MORPHINE SULFATE 2 MG/ML CPJ (NOT FOR IM USE) IV PRN ×2 (04:36→13:25)
[2021-08-07] MEDS: BLOOD SUGAR DIAGNOSTIC STRIP TEST SCH ×2 (06:48→12:00)
[2021-08-07 06:50] LABS: BASOPHILS % 0.6 % (0.0-2.0); HEMATOCRIT. 24.2 % (42.0-52.0); LYMPHOCYTES % 29.1 % (20.0-50.0); MEAN CORPUSCULAR HEMOGLOBIN 27.6 pg (28.0-32.0); MEAN CORPUSCULAR VOLUME 83.2 fL (80.0-94.0); MEAN PLATELET VOLUME 7.5 fl (7.4-10.4); MONOCYTES % 13.2 % (2.0-8.0); NEUTROPHILS % 53.1 % (40.0-76.0); PLATELET 144 x1000/uL (130-400); RED CELL DISTRIBUTION WIDTH 16.8 % (11.6-14.6)
[2021-08-07 08:00] VITALS: BP 171/66
[2021-08-07] MEDS: INSULIN LISPRO 100 UNITS/ML SUBCUT SCH ×2 (08:10→12:00)
[2021-08-07] MEDS: ASPIRIN 81MG EC TABLET PO SCH (08:20)
[2021-08-07] MEDS: GABAPENTIN 300MG CAPSULE PO SCH (08:20)
[2021-08-07] MEDS: SENNOSIDES 8.6MG TABLET PO SCH (08:20)
[2021-08-07] MEDS: FOLIC ACID 1MG TABLET PO SCH (08:20)
[2021-08-07] MEDS: ENOXAPARIN 100MG/ML SYR SUBCUT SCH (08:20)
[2021-08-07] MEDS: THIAMINE HCL 100MG TABLET PO SCH (08:20)
[2021-08-07] MEDS: FERROUS SULFATE 325MG TABLET PO SCH ×2 (08:20→12:14)
[2021-08-07] MEDS: AMLODIPINE 10MG TABLET PO SCH (08:20)
[2021-08-07] MEDS: ASCORBIC ACID 500 MG TABLET PO SCH (08:20)
[2021-08-07] MEDS: MUPIROCIN 2% OINT 22GM NS SCH (08:21)
[2021-08-07] MEDS: FUROSEMIDE 40MG/4ML VIAL IVP SCH (08:21)
[2021-08-07] MEDS ORDERED: MEROPENEM 1000MG in NORMAL SALINE 100ML IV SCH (11:00)
[2021-08-07 11:56] VITALS: BP 140/59
[2021-08-07 12:01] VITALS: BP 140/59
[2021-08-07 13:25] VITALS: BP 140/59
== END 2021-08-07 13:44 | DRG 812 ==
LOC: ER 15:03 → 7WST 20:16 → ENRESERV 22:45 → 7WST 23:42
PROVIDERS: ADMIT Internal Medicine Nephrology; ATTEND Internal Medicine Nephrology
PROC: 02HV33Z Insertion of Infusion Device into Superior Vena Cava, Percutaneous Approach (ICD-10-PCS; principal; 2021-08-03)
PROC: B5181ZA Fluoroscopy of Superior Vena Cava using Low Osmolar Contrast, Guidance (ICD-10-PCS; 2021-08-03)
PROC: B548ZZA Ultrasonography of Superior Vena Cava, Guidance (ICD-10-PCS; 2021-08-03)
DX: D50.8 Other iron deficiency anemias (principal); I13.0 Hypertensive heart and chronic kidney disease with heart failure and stage 1 through stage 4 chronic kidney disease, or unspecified chronic kidney disease; I50.32 Chronic diastolic (congestive) heart failure; E44.0 Moderate protein-calorie malnutrition; I82.511 Chronic embolism and thrombosis of right femoral vein; E87.5 Hyperkalemia; E11.22 Type 2 diabetes mellitus with diabetic chronic kidney disease; N18.9 Chronic kidney disease, unspecified; S30.0XXA Contusion of lower back and pelvis, initial encounter; K21.9 Gastro-esophageal reflux disease without esophagitis; B96.20 Unspecified Escherichia coli [E. coli] as the cause of diseases classified elsewhere; I27.20 Pulmonary hypertension, unspecified; E78.00 Pure hypercholesterolemia, unspecified; H40.9 Unspecified glaucoma; R35.1 Nocturia; H26.9 Unspecified cataract; M19.90 Unspecified osteoarthritis, unspecified site; I25.10 Atherosclerotic heart disease of native coronary artery without angina pectoris; J44.9 Chronic obstructive pulmonary disease, unspecified; Z95.0 Presence of cardiac pacemaker; Z68.26 Body mass index [BMI] 26.0-26.9, adult; Z79.4 Long term (current) use of insulin; Z82.49 Family history of ischemic heart disease and other diseases of the circulatory system; X58.XXXA Exposure to other specified factors, initial encounter; Y93.89 Activity, other specified; Y92.89 Other specified places as the place of occurrence of the external cause; Y99.8 Other external cause status
CPT/HCPCS: 36415; 36573; 71045; 80048; 80053; 80305; 80320; 81003; 82040; 82270; 82607; 82728; 82746; 82962; 83036; 83540; 83550; 83735; 83880; 84134; 84484; 85025; 85027; 85044; 86850; 86900; 87077; 87186; 93005; 93306; 93970; 93971; 99285; C1725; J0696; J1650; J1815; J1940; J2185; J2270; J7060; G0480

== ENCOUNTER 2021-11-20 00:44 | Inpatient (IN) | payer MEDICARE, MEDICAID ==
[~2021-11-20] VITALS: Ht 182.9 cm; Wt 89.8 kg
[2021-11-20] MEDS ORDERED: ASPIRIN 81MG TABLET PO ONE (01:15)
[2021-11-20] MEDS: NITROGLYCERIN 0.4MG TABLET SL SL PRN ×2 (01:23→04:18)
[2021-11-20 02:32] LABS: BASOPHILS % 0.4 % (0.0-2.0); EOSINOPHILS % 3.6 % (0.0-5.0); HEMOGLOBIN. 7.2 g/dL (14.0-18.0); LYMPHOCYTES % 14.3 % (20.0-50.0); MEAN CORPUSCULAR HEMOGLOBIN 27.3 pg (28.0-32.0); MEAN CORPUSCULAR VOLUME 83.1 fL (80.0-94.0); MONOCYTES % 10.2 % (2.0-8.0); NEUTROPHILS % 71.5 % (40.0-76.0); RED BLOOD CELL COUNT 2.64 mill/uL (4.7-6.1); RED CELL DISTRIBUTION WIDTH 15.3 % (11.6-14.6)
[2021-11-20 02:41] LABS: CHLORIDE 100 mEq/L (98-107)
[2021-11-20 03:25] LABS: MEAN PLATELET VOLUME 6.6 fl (7.4-10.4); PLATELET 149 x1000/uL (130-400)
[2021-11-20] MEDS ORDERED: DOCUSATE SODIUM 100MG CAPSULE PO PRN (06:45)
[2021-11-20] MEDS ORDERED: DEXTROSE 50% WATER 50ML SYRINGE IV PRN (06:45)
[2021-11-20] MEDS ORDERED: NITROGLYCERIN 0.4MG TABLET SL SL PRN (06:45)
[2021-11-20] MEDS ORDERED: ONDANSETRON HCL 4MG/2ML INJ IV PRN (06:45)
[2021-11-20] MEDS ORDERED: IPRATROPIUM/ALBUTEROL 0.5-3(2.5)MG/3ML NEB NEB PRN (06:45)
[2021-11-20] MEDS ORDERED: GUAIFENESIN 200MG/10ML SUGAR FREE UDC PO PRN (06:45)
[2021-11-20] MEDS ORDERED: ACETAMINOPHEN 325MG TABLET PO PRN ×2 (06:45)
[2021-11-20] MEDS: INSULIN LISPRO 100 UNITS/ML SUBCUT SCH ×4 (08:20→22:22)
[2021-11-20 08:50] VITALS: BP 147/57
[2021-11-20] MEDS ORDERED: ASPIRIN 81MG EC TABLET PO SCH (09:00)
[2021-11-20] MEDS ORDERED: MAGNESIUM/ALUMINUM HYDROXIDE/SIMETHICONE 30ML UDC PO PRN (09:00)
[2021-11-20] MEDS: BLOOD SUGAR DIAGNOSTIC STRIP TEST SCH ×4 (09:54→22:22)
[2021-11-20] MEDS: PANTOPRAZOLE SODIUM 40 MG/VIAL IV SCH (10:09)
[2021-11-20] MEDS: METOPROLOL TARTRATE 25MG TABLET PO SCH ×2 (10:10→22:21)
[2021-11-20] MEDS: LISINOPRIL 20MG TABLET PO SCH ×2 (10:10→22:20)
[2021-11-20] MEDS: ENOXAPARIN 30MG/0.3ML SYR SUBCUT SCH (10:11)
[2021-11-20 12:00] VITALS: BP 149/89
[2021-11-20] MEDS: AMLODIPINE 5MG TABLET PO SCH (12:31)
[2021-11-20 14:11] VITALS: BP 147/57
[2021-11-20 14:38] LABS: T4 FREE 1.16 ng/dL (0.76-1.46)
[2021-11-20 16:00] VITALS: BP 133/53
[2021-11-20 16:48] LABS: FOLIC ACID (FOLATE) SERUM > 20.00 ng/mL (>5.38)
[2021-11-20 17:17] LABS: CREATINE KINASE MB FRACTION 2.2 ng/mL (0.5-3.6)
[2021-11-20] MEDS ORDERED: NALOXONE HCL 0.4MG/ML VIAL IV PRN (18:30)
[2021-11-20 20:00] VITALS: BP 137/49
[2021-11-20] MEDS ORDERED: EPOETIN ALFA-EPBX 4,000 UNIT/ML VIAL SUBCUT NR (21:00)
[2021-11-20] MEDS ORDERED: ZOLPIDEM TARTRATE 5MG TABLET PO PRN (21:00)
[2021-11-20] MEDS: INSULIN GLARGINE 100 UNITS/ML SUBCUT SCH (22:24)
[2021-11-21] VITALS: BP 142/89
[2021-11-21 00:05] LABS: CREATINE KINASE MB FRACTION 2.1 ng/mL (0.5-3.6)
[2021-11-21 04:00] VITALS: BP 147/56
[2021-11-21] MEDS: BLOOD SUGAR DIAGNOSTIC STRIP TEST SCH ×4 (06:18→20:30)
[2021-11-21] MEDS: INSULIN LISPRO 100 UNITS/ML SUBCUT SCH ×4 (06:18→20:30)
[2021-11-21 07:30] LABS: BASOPHILS % 0.4 % (0.0-2.0); EOSINOPHILS % 2.9 % (0.0-5.0); HEMATOCRIT. 23.6 % (42.0-52.0); HEMOGLOBIN. 8.1 g/dL (14.0-18.0); LYMPHOCYTES % 20.8 % (20.0-50.0); MEAN CORPUSCULAR HEMOGLOBIN 28.4 pg (28.0-32.0); MEAN CORPUSCULAR VOLUME 82.6 fL (80.0-94.0); MEAN PLATELET VOLUME 7.2 fl (7.4-10.4); MONOCYTES % 8.9 % (2.0-8.0); PLATELET 173 x1000/uL (130-400); RED BLOOD CELL COUNT 2.86 mill/uL (4.7-6.1); RED CELL DISTRIBUTION WIDTH 15.3 % (11.6-14.6)
[2021-11-21 08:00] VITALS: BP 143/55
[2021-11-21 08:10] LABS: CHLORIDE 104 mEq/L (98-107)
[2021-11-21 08:41] LABS: PHOSPHORUS 5.4 mg/dL (2.5-4.9)
[2021-11-21] MEDS: PANTOPRAZOLE SODIUM 40 MG/VIAL IV SCH (09:17)
[2021-11-21] MEDS: METOPROLOL TARTRATE 25MG TABLET PO SCH ×2 (09:18→20:29)
[2021-11-21] MEDS: AMLODIPINE 5MG TABLET PO SCH (09:18)
[2021-11-21] MEDS: LISINOPRIL 20MG TABLET PO SCH ×2 (09:19→21:16)
[2021-11-21] MEDS: ENOXAPARIN 30MG/0.3ML SYR SUBCUT SCH (09:20)
[2021-11-21 12:00] VITALS: BP 152/58
[2021-11-21 16:00] VITALS: BP 136/58
[2021-11-21 20:00] VITALS: BP 136/55
[2021-11-21] MEDS: INSULIN GLARGINE 100 UNITS/ML SUBCUT SCH (20:30)
[2021-11-22] VITALS: BP 147/57
[2021-11-22 04:00] VITALS: BP 159/65
[2021-11-22 06:42] LABS: BASOPHILS % 0.5 % (0.0-2.0); EOSINOPHILS % 3.9 % (0.0-5.0); HEMATOCRIT. 25.1 % (42.0-52.0); HEMOGLOBIN. 8.5 g/dL (14.0-18.0); LYMPHOCYTES % 22.9 % (20.0-50.0); MEAN CORPUSCULAR VOLUME 82.7 fL (80.0-94.0); MEAN PLATELET VOLUME 6.9 fl (7.4-10.4); MONOCYTES % 10.1 % (2.0-8.0); NEUTROPHILS % 62.6 % (40.0-76.0); PLATELET 178 x1000/uL (130-400); RED BLOOD CELL COUNT 3.03 mill/uL (4.7-6.1); RED CELL DISTRIBUTION WIDTH 15.1 % (11.6-14.6)
[2021-11-22] MEDS: INSULIN LISPRO 100 UNITS/ML SUBCUT SCH ×4 (06:45→21:00)
[2021-11-22] MEDS: BLOOD SUGAR DIAGNOSTIC STRIP TEST SCH ×4 (06:45→21:00)
[2021-11-22 07:59] LABS: PHOSPHORUS 5.3 mg/dL (2.5-4.9)
[2021-11-22 08:00] VITALS: BP 158/66
[2021-11-22] MEDS: PANTOPRAZOLE SODIUM 40 MG/VIAL IV SCH (10:39)
[2021-11-22] MEDS: ENOXAPARIN 30MG/0.3ML SYR SUBCUT SCH (10:41)
[2021-11-22] MEDS: AMLODIPINE 5MG TABLET PO SCH (10:41)
[2021-11-22] MEDS: LISINOPRIL 20MG TABLET PO SCH ×2 (10:42→23:20)
[2021-11-22] MEDS: METOPROLOL TARTRATE 25MG TABLET PO SCH ×2 (10:43→21:00)
[2021-11-22 12:00] VITALS: BP 144/65
[2021-11-22 16:00] VITALS: BP 136/58
[2021-11-22 18:44] LABS: VITAMIN B12 SERUM 290 pg/mL (211-911)
[2021-11-22 20:00] VITALS: BP 152/53
[2021-11-22] MEDS: INSULIN GLARGINE 100 UNITS/ML SUBCUT SCH (23:36)
[2021-11-23] VITALS (8 sets, daily range): BP systolic 139–166; BP diastolic 53–84
[2021-11-23] MEDS: TRAMADOL 50MG TABLET PO PRN ×2 (01:12→16:19)
[2021-11-23] MEDS: CLONIDINE 0.1MG TABLET PO PRN ×2 (04:19→21:59)
[2021-11-23] MEDS: INSULIN LISPRO 100 UNITS/ML SUBCUT SCH ×4 (06:19→20:21)
[2021-11-23] MEDS: BLOOD SUGAR DIAGNOSTIC STRIP TEST SCH ×4 (06:19→20:21)
[2021-11-23 07:30] LABS: BASOPHILS % 0.7 % (0.0-2.0); HEMATOCRIT. 26.2 % (42.0-52.0); HEMOGLOBIN. 8.6 g/dL (14.0-18.0); LYMPHOCYTES % 23.7 % (20.0-50.0); MEAN CORPUSCULAR HEMOGLOBIN 27.3 pg (28.0-32.0); MEAN CORPUSCULAR VOLUME 83.3 fL (80.0-94.0); MEAN PLATELET VOLUME 7.2 fl (7.4-10.4); MONOCYTES % 9.3 % (2.0-8.0); NEUTROPHILS % 63.3 % (40.0-76.0); PLATELET 184 x1000/uL (130-400); RED BLOOD CELL COUNT 3.14 mill/uL (4.7-6.1); RED CELL DISTRIBUTION WIDTH 14.8 % (11.6-14.6)
[2021-11-23 07:48] LABS: PHOSPHORUS 4.4 mg/dL (2.5-4.9)
[2021-11-23] MEDS: METOPROLOL TARTRATE 25MG TABLET PO SCH ×2 (09:00→20:20)
[2021-11-23] MEDS: AMLODIPINE 5MG TABLET PO SCH (09:29)
[2021-11-23] MEDS: LISINOPRIL 20MG TABLET PO SCH ×2 (09:29→20:20)
[2021-11-23] MEDS: ENOXAPARIN 30MG/0.3ML SYR SUBCUT SCH (09:30)
[2021-11-23] MEDS: PANTOPRAZOLE SODIUM 40 MG/VIAL IV SCH (09:30)
[2021-11-23] MEDS: INSULIN GLARGINE 100 UNITS/ML SUBCUT SCH (22:24)
[2021-11-24] VITALS: BP 160/63
[2021-11-24 04:00] VITALS: BP 160/64
[2021-11-24] MEDS: CLONIDINE 0.1MG TABLET PO PRN (04:27)
[2021-11-24] MEDS: INSULIN LISPRO 100 UNITS/ML SUBCUT SCH (06:21)
[2021-11-24] MEDS: BLOOD SUGAR DIAGNOSTIC STRIP TEST SCH (06:21)
[2021-11-24 08:00] VITALS: BP 159/61
[2021-11-24] MEDS: PANTOPRAZOLE SODIUM 40 MG/VIAL IV SCH (08:58)
[2021-11-24] MEDS: AMLODIPINE 5MG TABLET PO SCH (08:59)
[2021-11-24] MEDS: METOPROLOL TARTRATE 25MG TABLET PO SCH (08:59)
[2021-11-24] MEDS: LISINOPRIL 20MG TABLET PO SCH (09:00)
[2021-11-24] MEDS: ENOXAPARIN 30MG/0.3ML SYR SUBCUT SCH (09:01)
== END 2021-11-24 10:10 | DRG 206 ==
LOC: ER 01:15 → 8WST 03:43 → SUPCPDRO 06:29 → ENRESERV 07:11
PROVIDERS: ADMIT Internal Medicine; ATTEND Internal Medicine
DX: M94.0 Chondrocostal junction syndrome [Tietze] (principal); E87.1 Hypo-osmolality and hyponatremia; I13.0 Hypertensive heart and chronic kidney disease with heart failure and stage 1 through stage 4 chronic kidney disease, or unspecified chronic kidney disease; N17.9 Acute kidney failure, unspecified; I50.30 Unspecified diastolic (congestive) heart failure; N18.4 Chronic kidney disease, stage 4 (severe); I48.0 Paroxysmal atrial fibrillation; E83.41 Hypermagnesemia; E78.5 Hyperlipidemia, unspecified; E11.22 Type 2 diabetes mellitus with diabetic chronic kidney disease; J44.9 Chronic obstructive pulmonary disease, unspecified; I25.10 Atherosclerotic heart disease of native coronary artery without angina pectoris; I95.9 Hypotension, unspecified; D63.1 Anemia in chronic kidney disease; E83.39 Other disorders of phosphorus metabolism; S90.31XA Contusion of right foot, initial encounter; Z95.0 Presence of cardiac pacemaker; Z79.899 Other long term (current) drug therapy; Z86.718 Personal history of other venous thrombosis and embolism; Z82.49 Family history of ischemic heart disease and other diseases of the circulatory system; X58.XXXA Exposure to other specified factors, initial encounter; Y93.89 Activity, other specified; Y92.89 Other specified places as the place of occurrence of the external cause; Y99.8 Other external cause status
CPT/HCPCS: 36415; 71045; 76770; 80048; 80053; 80061; 80320; 82270; 82550; 82553; 82607; 82746; 82962; 83036; 83540; 83550; 83735; 83880; 84100; 84439; 84443; 84484; 85025; 85379; 86850; 86900; 93005; 93923; 93970; 99285; C9113; J0885; J1650; J1815; G0480

== ENCOUNTER 2022-04-03 20:10 | Emergency (ER) | payer MEDICARE, MEDICAID ==
[~2022-04-03] VITALS: Ht 172.7 cm; Wt 91.0 kg
[2022-04-03 21:18] LABS: CHLORIDE 101 mEq/L (98-107)
[2022-04-03 21:24] LABS: BASOPHILS % 0.6 % (0.0-2.0); EOSINOPHILS % 4.3 % (0.0-5.0); HEMATOCRIT. 26.9 % (42.0-52.0); HEMOGLOBIN. 8.8 g/dL (14.0-18.0); LYMPHOCYTES % 27.1 % (20.0-50.0); MEAN CORPUSCULAR HEMOGLOBIN 27.5 pg (28.0-32.0); MEAN CORPUSCULAR VOLUME 83.9 fL (80.0-94.0); MONOCYTES % 9.2 % (2.0-8.0); NEUTROPHILS % 58.8 % (40.0-76.0); PLATELET 216 x1000/uL (130-400); RED BLOOD CELL COUNT 3.21 mill/uL (4.7-6.1); RED CELL DISTRIBUTION WIDTH 15.5 % (11.6-14.6)
[2022-04-04 10:46] VITALS: BP 152/75
== END 2022-04-04 11:11 | disposition home or self-care (01) ==
LOC: ER 20:10
DX: I11.0 Hypertensive heart disease with heart failure (principal); I50.9 Heart failure, unspecified; I25.10 Atherosclerotic heart disease of native coronary artery without angina pectoris; D64.9 Anemia, unspecified; N28.9 Disorder of kidney and ureter, unspecified
CPT/HCPCS: 36415; 71045; 80053; 83880; 85025; 93970; 99285

== ENCOUNTER 2023-07-04 04:32 | Inpatient (IN) | payer MEDICARE ==
[~2023-07-04] VITALS: Ht 185.4 cm; Wt 86.2 kg
[~2023-07-04 04:32] MED LIST changes: -ACET-2708 MT; +AMLO5TAB4 PO; -ASCO500C15 MT; -ASPI-1497 PO; +ATOR40TA70 PO; +BISA-81 PO; +BISA10SU62 RC; +CARV12.545 PO; -CLON0.1T MT; +CLON0.1T PO; +DOCU-138 PO; -FERR325T6 MT; -FOLI-43 MT; +FOLI-43 PO; +FOLI0.8T23 PO; -FURO-151 MT; -GABA300C PO; +HYDR-4001 PO; -HYDR-4009 PO; +HYDR50TA40 PO; -INSHUMSS SUBCUT; +INSLIS SUBCUT; -INSU100I28 SQ; +IPRA3AMP9 HHN; -LISI20TA31 MT; -LOV120 SQ; -METO-539 MT; +PROT40 PO; -SENN-257 MT; +SEVE800T8 PO; +TEMA15CA5 PO; -THIA250T3 PO; -TOPUD MT; +TOPUD PO
[2023-07-04] MEDS: ONDANSETRON HCL 4MG/2ML INJ IV ONE (06:00)
[2023-07-04] MEDS: MORPHINE SULFATE 4 MG/ML INJ (FOR IV/IM USE) IV ONE (06:00)
[2023-07-04 06:06] LABS: BASOPHILS % 1.4 % (0.0-2.0); EOSINOPHILS % 1.5 % (0.0-5.0); HEMATOCRIT. 32.8 % (42.0-52.0); HEMOGLOBIN. 11.2 g/dL (14.0-18.0); LYMPHOCYTES % 27.1 % (20.0-50.0); MEAN CORPUSCULAR HEMOGLOBIN 27.9 pg (28.0-32.0); MEAN CORPUSCULAR HGB CONC 34.1 g/dL (31.0-37.0); MEAN CORPUSCULAR VOLUME 81.8 fL (80.0-94.0); MEAN PLATELET VOLUME 7.6 fl (7.4-10.4); MONOCYTES % 10.6 % (2.0-8.0); NEUTROPHILS % 59.4 % (40.0-76.0); PLATELET 200 x1000/uL (130-400); RED BLOOD CELL COUNT 4.01 mill/uL (4.7-6.1); RED CELL DISTRIBUTION WIDTH 24.4 % (11.6-14.6); WHITE BLOOD COUNT 6.4 x1000/uL (4.5-11.0)
[2023-07-04 06:12] LABS: CHLORIDE 106 mEq/L (98-107); POTASSIUM 3.2 mEq/L (3.5-5.1); SODIUM 139 mEq/L (136-145)
[2023-07-04 06:13] LABS: CALCIUM 8.2 mg/dL (8.7-10.4); CARBON DIOXIDE 26 mEq/L (21-32)
[2023-07-04 06:16] LABS: DIFFERENTIAL COMMENT 1
[2023-07-04 06:17] LABS: PROTHROMBIN TIME 10.9 sec (9.6-11.0)
[2023-07-04 06:18] LABS: CREATININE 2.5 mg/dL (0.6-1.3); GLUCOSE 94 mg/dL (70-105); UREA NITROGEN BLOOD 15 mg/dL (9-23)
[2023-07-04 06:19] LABS: ALANINE AMINOTRANSFERASE < 7 IU/L (10-49); TROPONIN I HIGH SENSITIVITY 21 ng/L (3.0-53)
[2023-07-04 06:20] LABS: ALBUMIN 3.2 g/dL (3.2-4.8); ASPARTATE AMINOTRANSFERASE 16 IU/L (<34); BILIRUBIN TOTAL 0.7 mg/dL (0.1-1.0); PROTEIN TOTAL 6.3 g/dL (6.0-8.3)
[2023-07-04] MEDS: ONDANSETRON HCL 4MG/2ML INJ IM ONE (07:02)
[2023-07-04] MEDS: MORPHINE SULFATE 4 MG/ML INJ (FOR IV/IM USE) IM ONE (07:03)
[2023-07-04] MEDS ORDERED: ONDANSETRON HCL 4MG/2ML INJ IV PRN (12:15)
[2023-07-04] MEDS ORDERED: ENOXAPARIN 40MG/0.4ML SYR SUBCUT SCH (12:15)
[2023-07-04] MEDS ORDERED: PIPERACILLIN/TAZOBACTAM 3.375 G in DEXTROSE 5% WATER 50 ML IV SCH (12:15)
[2023-07-04] MEDS ORDERED: IPRATROPIUM/ALBUTEROL 0.5-3(2.5)MG/3ML NEB HHN PRN (12:15)
[2023-07-04] MEDS ORDERED: ACETAMINOPHEN 325MG TABLET PO PRN (12:15)
[2023-07-04] MEDS ORDERED: MAGNESIUM/ALUMINUM HYDROXIDE/SIMETHICONE 30ML UDC PO PRN (12:15)
[2023-07-04] MEDS ORDERED: LIDOCAINE HCL 1% 10 MG/ML 10ML VIAL ONE (12:21)
[2023-07-04] MEDS: ENOXAPARIN 30MG/0.3ML SYR SUBCUT SCH (13:31)
[2023-07-04] MEDS: IBUPROFEN 200MG TABLET PO PRN (13:31)
[2023-07-04] MEDS: LACTULOSE 20G/30ML UDC PO NR (13:31)
[2023-07-04] MEDS: PANTOPRAZOLE SODIUM 40 MG/VIAL IV SCH (13:42)
[2023-07-04] MEDS: PIPERACILLIN/TAZO 3.375G/50ML IV SCH (14:00)
[2023-07-04 14:25] VITALS: BP 163/79; PULSE 68; RESP 18; TEMP 97.9
[2023-07-04 16:00] VITALS: BP 157/77; PULSE 73; RESP 18; TEMP 97.1
[2023-07-04] MEDS: AMLODIPINE 5MG TABLET PO SCH (16:07)
[2023-07-04] MEDS: NA PHOS,M-B/NA PHOS,DI-BA ENEMA 118ML PR NR (16:08)
[2023-07-04] MEDS: BISACODYL 10MG SUPP PR NR (16:08)
[2023-07-04] MEDS: METOCLOPRAMIDE HCL 10MG/2ML VIAL IV SCH (17:15)
[2023-07-04] MEDS ORDERED: NALOXONE HCL 0.4MG/ML VIAL IV PRN (19:00)
[2023-07-04] MEDS: MORPHINE SULFATE 2 MG/ML CPJ (NOT FOR IM USE) IV PRN (19:42)
[2023-07-04] MEDS: CLONIDINE 0.1MG TABLET PO PRN (19:42)
[2023-07-04] MEDS: DICYCLOMINE HCL 10MG CAPSULE PO PRN (19:42)
[2023-07-04 20:00] VITALS: BP 174/86; PULSE 93; RESP 16; TEMP 97.1
[2023-07-04] MEDS: SENNOSIDES 8.6MG TABLET PO SCH (21:11)
[2023-07-04] MEDS: LACTULOSE 20G/30ML UDC PO SCH (21:11)
[2023-07-04] MEDS: HYDRALAZINE HCL 50MG TABLET PO SCH (21:12)
[2023-07-04] MEDS: CARVEDILOL 12.5MG TABLET PO SCH (21:12)
[2023-07-04] MEDS: GUAIFENESIN 200MG/10ML SUGAR FREE UDC PO PRN (23:10)
[2023-07-05] VITALS (12 sets, daily range): BP systolic 117–198; BP diastolic 64–87; PULSE 58–88; RESP 16–20; TEMP 97.2–98.3
[2023-07-05 07:11] LABS: CALCIUM 7.8 mg/dL (8.7-10.4); CARBON DIOXIDE 26 mEq/L (21-32); CHLORIDE 107 mEq/L (98-107); POTASSIUM 4.3 mEq/L (3.5-5.1); SODIUM 140 mEq/L (136-145)
[2023-07-05 07:17] LABS: CREATININE 2.4 mg/dL (0.6-1.3); GLUCOSE 80 mg/dL (70-105); TRIGLYCERIDE 44 mg/dL (0-150); UREA NITROGEN BLOOD 15 mg/dL (9-23)
[2023-07-05 07:18] LABS: ALANINE AMINOTRANSFERASE < 7 IU/L (10-49); ALBUMIN 2.8 g/dL (3.2-4.8); ASPARTATE AMINOTRANSFERASE 16 IU/L (<34); LDL CHOLESTEROL 21 mg/dL (5-100)
[2023-07-05 07:19] LABS: BILIRUBIN TOTAL 0.6 mg/dL (0.1-1.0); CHOLESTEROL 103 mg/dL (<200); HDL CHOLESTEROL 65 mg/dL (>55); PROTEIN TOTAL 5.5 g/dL (6.0-8.3); THYROID STIMULATING HORMONE 7.24 uIU/mL (0.55-4.78)
[2023-07-05 07:21] LABS: BASOPHILS % 0.8 % (0.0-2.0); HEMATOCRIT. 27.6 % (42.0-52.0); HEMOGLOBIN. 9.3 g/dL (14.0-18.0); LYMPHOCYTES % 29.7 % (20.0-50.0); MEAN CORPUSCULAR HEMOGLOBIN 27.9 pg (28.0-32.0); MEAN CORPUSCULAR HGB CONC 33.6 g/dL (31.0-37.0); MEAN CORPUSCULAR VOLUME 83.1 fL (80.0-94.0); MEAN PLATELET VOLUME 8.2 fl (7.4-10.4); NEUTROPHILS % 57.5 % (40.0-76.0); PLATELET 174 x1000/uL (130-400); RED BLOOD CELL COUNT 3.33 mill/uL (4.7-6.1); RED CELL DISTRIBUTION WIDTH 24.2 % (11.6-14.6)
[2023-07-05] MEDS ORDERED: DIATR MEGLU/DIATRIZOATE SOLN 120ML ONE (07:39)
[2023-07-05] MEDS: POLYETHYLENE GLYCOL 3350 (17GM) 1 DOSE PACK PO SCH (08:13)
[2023-07-05 08:14] LABS: DIFFERENTIAL COMMENT 1
[2023-07-05] MEDS: LACTOBACILLUS GG CAPSULE PO SCH (08:14)
[2023-07-05 08:16] LABS: ADD RBC MORPHOLOGY YES
[2023-07-05] MEDS ORDERED: AMLODIPINE 10MG TABLET PO SCH (09:00)
[2023-07-05 12:16] LABS: ANISOCYTOSIS 4+; PLATELET ESTIMATE NORMAL
[2023-07-05] MEDS: PIPERACILLIN/TAZO 3.375G/50ML IV SCH (19:23)
[2023-07-05 19:45] LABS: HEPATITIS B SURFACE ANTIGEN NEGATIVE (Negative)
[2023-07-05 20:06] LABS: HEPATITIS A AB IGM NEGATIVE (Negative); HEPATITIS B CORE AB IGM NEGATIVE (Negative)
[2023-07-05 20:07] LABS: HEPATITIS C AB NON REACTIVE (Neg) (Negative)
[2023-07-06] VITALS: BP 152/70; PULSE 68; RESP 20; TEMP 97.8
[2023-07-06 04:00] VITALS: BP 175/84; PULSE 82; RESP 18; TEMP 97.4
[2023-07-06 08:00] VITALS: BP 155/64; PULSE 65; RESP 18; TEMP 98.6
[2023-07-06 12:00] VITALS: BP 171/71; PULSE 58; RESP 18; TEMP 97.6
[2023-07-06 12:46] LABS: BG BASE EXCESS 2.3 mmol/L (-2.0-2.0); BG CARBOXYHEMOGLOBIN 0.3 % (0.5-1.5); BG DEOXYHEMOGLOBIN 3.3 % (0.0-5.0); BG FRACTION INSPIRED OXYGEN 21; BG HCO3 ACT 26.2 mmol/L (22.0-26.0); BG METHEMOGLOBIN 0.4 % (0.0-1.5); BG OXYGEN SATURATION 96.7 % (92.0-98.5); BG PCO2 38.1 mmHg (35.0-45.0); BG PH 7.456 (7.350-7.450); BG PO2 86.2 mmHg (75.0-100.0); BG SAMPLE SITE LEFT RADIAL; BG TOTAL HEMOGLOBIN 10.5 g/dL (12.0-18.0); BG VENT MODE ROOM AIR
[2023-07-06 12:52] LABS: HEMATOCRIT 28.8 % (42.0-52.0); HEMOGLOBIN 9.7 g/dL (14.0-18.0); MEAN CORPUSCULAR HGB CONC 33.9 g/dL (31.0-37.0); MEAN CORPUSCULAR VOLUME 82.5 fL (80.0-94.0); PLATELET 183 x1000/uL (130-400); RED BLOOD CELL COUNT 3.49 mill/uL (4.7-6.1); RED CELL DISTRIBUTION WIDTH 23.8 % (11.6-14.6); WHITE BLOOD COUNT 5.3 x1000/uL (4.5-11.0)
[2023-07-06 13:00] LABS: POTASSIUM 3.8 mEq/L (3.5-5.1)
[2023-07-06 13:01] LABS: CALCIUM 7.7 mg/dL (8.7-10.4)
[2023-07-06 13:06] LABS: CREATININE 2.2 mg/dL (0.6-1.3)
[2023-07-06 16:00] VITALS: BP 186/88; PULSE 72; RESP 18; TEMP 97.8
[2023-07-06] MEDS: PIPERACILLIN/TAZO 3.375G/50ML IV SCH (17:32)
[2023-07-06 20:00] VITALS: BP 139/55; PULSE 64; RESP 20; TEMP 97.3
[2023-07-07] VITALS: BP 134/80; PULSE 81; RESP 18; TEMP 97.6
[2023-07-07 04:00] VITALS: BP 163/85; PULSE 78; RESP 18; TEMP 97.5
[2023-07-07 06:10] LABS: HEMATOCRIT 28.1 % (42.0-52.0); HEMOGLOBIN 9.4 g/dL (14.0-18.0); MEAN CORPUSCULAR HEMOGLOBIN 27.5 pg (28.0-32.0); MEAN CORPUSCULAR HGB CONC 33.6 g/dL (31.0-37.0); MEAN CORPUSCULAR VOLUME 81.7 fL (80.0-94.0); PLATELET 182 x1000/uL (130-400); RED BLOOD CELL COUNT 3.43 mill/uL (4.7-6.1); RED CELL DISTRIBUTION WIDTH 23.6 % (11.6-14.6); WHITE BLOOD COUNT 4.6 x1000/uL (4.5-11.0)
[2023-07-07 06:15] LABS: POTASSIUM 3.8 mEq/L (3.5-5.1)
[2023-07-07 06:21] LABS: CREATININE 2.5 mg/dL (0.6-1.3)
[2023-07-07 08:00] VITALS: BP 175/75; PULSE 73; RESP 18; TEMP 97.9
[2023-07-07 12:00] VITALS: BP 156/88; PULSE 76; RESP 18; TEMP 98
[2023-07-07] MEDS: HYDRALAZINE HCL 100MG TABLET PO SCH (13:58)
[2023-07-07 15:35] VITALS: BP 173/70; PULSE 66; RESP 18; TEMP 97.5
[2023-07-07] MEDS: HYDRALAZINE 20MG/ML VIAL IV NR (16:27)
[2023-07-07] MEDS: ACETAMINOPHEN 325MG TABLET PO PRN (16:35)
[2023-07-07 20:00] VITALS: BP 154/70; PULSE 62; RESP 19; TEMP 97.9
[2023-07-08] VITALS (10 sets, daily range): BP systolic 125–175; BP diastolic 60–86; PULSE 66–77; RESP 18–20; TEMP 97.5–98.4
[2023-07-08] MEDS: CLONIDINE 0.2MG TABLET PO PRN (05:28)
[2023-07-08 07:01] LABS: HEMATOCRIT 30.7 % (42.0-52.0); HEMOGLOBIN 10.3 g/dL (14.0-18.0); MEAN CORPUSCULAR HEMOGLOBIN 27.5 pg (28.0-32.0); MEAN CORPUSCULAR HGB CONC 33.7 g/dL (31.0-37.0); MEAN CORPUSCULAR VOLUME 81.6 fL (80.0-94.0); PLATELET 212 x1000/uL (130-400); RED BLOOD CELL COUNT 3.76 mill/uL (4.7-6.1); RED CELL DISTRIBUTION WIDTH 23.7 % (11.6-14.6); WHITE BLOOD COUNT 5.2 x1000/uL (4.5-11.0)
[2023-07-08 07:09] LABS: POTASSIUM 3.9 mEq/L (3.5-5.1)
[2023-07-08 07:10] LABS: CALCIUM 8.3 mg/dL (8.7-10.4)
[2023-07-08 07:14] LABS: CREATININE 2.7 mg/dL (0.6-1.3)
[2023-07-09 00:19] VITALS: BP 170/85; PULSE 64; RESP 20; TEMP 99
[2023-07-09 04:00] VITALS: BP 148/76; PULSE 66; RESP 18; TEMP 98.9
[2023-07-09 07:47] VITALS: BP 172/82; PULSE 81; RESP 18; TEMP 98.2
[2023-07-09] MEDS: DOCUSATE SODIUM 100MG CAPSULE PO PRN (09:06)
[2023-07-09 12:04] VITALS: BP 153/79; PULSE 64; RESP 20; TEMP 97.9
[2023-07-09 16:12] VITALS: BP 145/72; PULSE 66; RESP 20; TEMP 97.9
[2023-07-09 17:06] LABS: BASOPHILS % 0.8 % (0.0-2.0); EOSINOPHILS % 1.5 % (0.0-5.0); HEMATOCRIT. 28.8 % (42.0-52.0); HEMOGLOBIN. 9.6 g/dL (14.0-18.0); LYMPHOCYTES % 28.1 % (20.0-50.0); MEAN CORPUSCULAR HEMOGLOBIN 27.1 pg (28.0-32.0); MEAN CORPUSCULAR HGB CONC 33.3 g/dL (31.0-37.0); MEAN CORPUSCULAR VOLUME 81.5 fL (80.0-94.0); MEAN PLATELET VOLUME 7.7 fl (7.4-10.4); NEUTROPHILS % 61.6 % (40.0-76.0); PLATELET 185 x1000/uL (130-400); RED BLOOD CELL COUNT 3.54 mill/uL (4.7-6.1); RED CELL DISTRIBUTION WIDTH 23.4 % (11.6-14.6); WHITE BLOOD COUNT 5.8 x1000/uL (4.5-11.0)
[2023-07-09 17:08] LABS: DIFFERENTIAL COMMENT 1
[2023-07-09 17:17] LABS: POTASSIUM 4.1 mEq/L (3.5-5.1)
[2023-07-09 17:18] LABS: CALCIUM 7.6 mg/dL (8.7-10.4)
[2023-07-09 17:23] LABS: CREATININE 2.5 mg/dL (0.6-1.3)
[2023-07-09 20:29] VITALS: BP 151/67; PULSE 62; RESP 19; TEMP 97.5
[2023-07-10] VITALS: BP 149/52; PULSE 70; RESP 20; TEMP 99.1
[2023-07-10 04:00] VITALS: BP 117/66; PULSE 67; RESP 20; TEMP 97.9
[2023-07-10 08:00] VITALS: BP 149/68; PULSE 83; RESP 20; TEMP 98.4
[2023-07-10 09:16] LABS: BASOPHILS % 0.4 % (0.0-2.0); EOSINOPHILS % 1.5 % (0.0-5.0); HEMATOCRIT. 29.3 % (42.0-52.0); HEMOGLOBIN. 9.9 g/dL (14.0-18.0); LYMPHOCYTES % 22.6 % (20.0-50.0); MEAN CORPUSCULAR HEMOGLOBIN 27.6 pg (28.0-32.0); MEAN CORPUSCULAR HGB CONC 33.7 g/dL (31.0-37.0); MEAN PLATELET VOLUME 7.6 fl (7.4-10.4); MONOCYTES % 9.2 % (2.0-8.0); NEUTROPHILS % 66.3 % (40.0-76.0); PLATELET 200 x1000/uL (130-400); RED BLOOD CELL COUNT 3.57 mill/uL (4.7-6.1); RED CELL DISTRIBUTION WIDTH 23.9 % (11.6-14.6); WHITE BLOOD COUNT 5.7 x1000/uL (4.5-11.0)
[2023-07-10 09:22] LABS: POTASSIUM 4.1 mEq/L (3.5-5.1)
[2023-07-10 09:23] LABS: CALCIUM 8.2 mg/dL (8.7-10.4)
[2023-07-10 09:24] LABS: DIFFERENTIAL COMMENT 1
[2023-07-10 09:28] LABS: CREATININE 2.9 mg/dL (0.6-1.3)
[2023-07-10 12:00] VITALS: BP 152/71; PULSE 72; RESP 22; TEMP 98.2
[2023-07-10 14:31] VITALS: BP 152/71; PULSE 73; TEMP 98.2; O2SAT 98
[2023-07-10 16:00] VITALS: BP 142/67; PULSE 73; RESP 20; TEMP 98
== END 2023-07-10 15:50 | DRG 391 ==
LOC: ER 04:32 → 7WST 06:52 → EDBEDREQ 06:56 → EDBEDREQTM 06:56
PROVIDERS: ADMIT Internal Medicine Nephrology; ATTEND Internal Medicine Nephrology
PROC: 02HV33Z Insertion of Infusion Device into Superior Vena Cava, Percutaneous Approach (ICD-10-PCS; 2023-07-04)
PROC: B548ZZA Ultrasonography of Superior Vena Cava, Guidance (ICD-10-PCS; 2023-07-04)
PROC: 5A1D70Z Performance of Urinary Filtration, Intermittent, Less than 6 Hours Per Day (ICD-10-PCS; principal; 2023-07-05)
PROC: 5A1D70Z Performance of Urinary Filtration, Intermittent, Less than 6 Hours Per Day (ICD-10-PCS; 2023-07-08)
DX: K52.9 Noninfective gastroenteritis and colitis, unspecified (principal); N18.6 End stage renal disease; G81.91 Hemiplegia, unspecified affecting right dominant side; I13.2 Hypertensive heart and chronic kidney disease with heart failure and with stage 5 chronic kidney disease, or end stage renal disease; F03.93 Unspecified dementia, unspecified severity, with mood disturbance; G82.20 Paraplegia, unspecified; J98.11 Atelectasis; E44.1 Mild protein-calorie malnutrition; K59.00 Constipation, unspecified; T39.1X5A Adverse effect of 4-Aminophenol derivatives, initial encounter; E11.22 Type 2 diabetes mellitus with diabetic chronic kidney disease; E87.6 Hypokalemia; G47.00 Insomnia, unspecified; D63.1 Anemia in chronic kidney disease; I44.7 Left bundle-branch block, unspecified; I48.0 Paroxysmal atrial fibrillation; I50.9 Heart failure, unspecified; E66.9 Obesity, unspecified; G89.29 Other chronic pain; I65.21 Occlusion and stenosis of right carotid artery; J44.9 Chronic obstructive pulmonary disease, unspecified; E78.5 Hyperlipidemia, unspecified; Z53.20 Procedure and treatment not carried out because of patient's decision for unspecified reasons; Z79.4 Long term (current) use of insulin; Z86.73 Personal history of transient ischemic attack (TIA), and cerebral infarction without residual deficits; Z95.0 Presence of cardiac pacemaker; Z99.3 Dependence on wheelchair; Z99.2 Dependence on renal dialysis; K42.9 Umbilical hernia without obstruction or gangrene; Z79.899 Other long term (current) drug therapy; Z68.25 Body mass index [BMI] 25.0-25.9, adult; I69.323 Fluency disorder following cerebral infarction
CPT/HCPCS: 36415; 36573; 36600; 71045; 74176; 74250; 80048; 80053; 80061; 82375; 82805; 83880; 84439; 84443; 84484; 85025; 85027; 86705; 86709; 87340; 90935; 93005; 99285; A6261; C1725; C9113; J0360; J1650; J2270; J2405; J2543; J2765; J3490; Q9963

== ENCOUNTER 2023-10-21 13:21 | Inpatient (IN) | payer MEDICARE, MEDICAID ==
[~2023-10-21] VITALS: Ht 180.3 cm; Wt 72.6 kg
[~2023-10-21 13:21] MED LIST changes: -BISA-81 PO; +CLON0.1T MT; -HYDR50TA40 PO; -INSLIS SUBCUT
[2023-10-21 15:09] LABS: CHLORIDE 100 mEq/L (98-107); POTASSIUM 3.8 mEq/L (3.5-5.1); PROTHROMBIN TIME 11.1 sec (9.6-11.0); SODIUM 134 mEq/L (136-145)
[2023-10-21 15:10] LABS: CALCIUM 8.8 mg/dL (8.7-10.4); CARBON DIOXIDE 27 mEq/L (21-32)
[2023-10-21 15:15] LABS: CREATININE 1.3 mg/dL (0.6-1.3); GLUCOSE 101 mg/dL (70-105); UREA NITROGEN BLOOD 10 mg/dL (9-23)
[2023-10-21 15:16] LABS: ETHANOL BLOOD < 10 mg/dL (<10); TROPONIN I HIGH SENSITIVITY 11 ng/L (3.0-53)
[2023-10-21] MEDS: IOHEXOL-350 100 ML BOTTLE ONE (15:44)
[2023-10-21 16:04] LABS: BASOPHILS % 0.7 % (0.0-2.0); EOSINOPHILS % 3.6 % (0.0-5.0); HEMATOCRIT. 34.3 % (42.0-52.0); HEMOGLOBIN. 11.1 g/dL (14.0-18.0); LYMPHOCYTES % 18.9 % (20.0-50.0); MEAN CORPUSCULAR HGB CONC 32.2 g/dL (31.0-37.0); MEAN CORPUSCULAR VOLUME 86.8 fL (80.0-94.0); MEAN PLATELET VOLUME 7.9 fl (7.4-10.4); MONOCYTES % 8.8 % (2.0-8.0); PLATELET 183 x1000/uL (130-400); RED BLOOD CELL COUNT 3.95 mill/uL (4.7-6.1); RED CELL DISTRIBUTION WIDTH 17.6 % (11.6-14.6); WHITE BLOOD COUNT 5.6 x1000/uL (4.5-11.0)
[2023-10-21 17:11] LABS: TROPONIN I HIGH SENSITIVITY 12 ng/L (3.0-53)
[2023-10-21] MEDS ORDERED: IPRATROPIUM/ALBUTEROL 0.5-3(2.5)MG/3ML NEB HHN PRN (17:45)
[2023-10-21] MEDS ORDERED: DOCUSATE SODIUM 100MG CAPSULE PO PRN (17:45)
[2023-10-21] MEDS ORDERED: LORAZEPAM 0.5MG TABLET PO PRN (17:45)
[2023-10-21] MEDS ORDERED: ONDANSETRON HCL 4MG/2ML INJ IV PRN (17:45)
[2023-10-21] MEDS ORDERED: HYDROCODONE/ACETAMINOPHEN 7.5/325MG TABLET PO PRN (17:45)
[2023-10-21] MEDS ORDERED: GUAIFENESIN 200MG/10ML SUGAR FREE UDC PO PRN (17:45)
[2023-10-21] MEDS: DEXT 5%/0.9% NACL 500 ML IV ONE (18:22)
[2023-10-21] MEDS ORDERED: NICARDIPINE 40MG/200ML PREMIX 200 ML IV PRN (19:00)
[2023-10-21 19:06] LABS: PHOSPHORUS 2.3 mg/dL (2.5-4.9)
[2023-10-21 19:12] LABS: VITAMIN B12 SERUM 812 pg/mL (211-911)
[2023-10-21] MEDS ORDERED: NICARDIPINE 40 MG/200 ML PREMIX 200 ML IV PRN (19:15)
[2023-10-21] MEDS ORDERED: DEXTROSE 50% WATER 50ML SYRINGE IV PRN (19:45)
[2023-10-21] MEDS: FAMOTIDINE 20MG/2ML VIAL IV SCH (20:21)
[2023-10-21 20:46] LABS: IRON 52 ug/dL (65-175)
[2023-10-21 20:48] LABS: TOTAL IRON BINDING CAPACITY 191 ug/dl (250-425)
[2023-10-21] MEDS: INSULIN LISPRO 100 UNITS/ML SUBCUT SCH (21:00)
[2023-10-21] MEDS: ATORVASTATIN CALCIUM 40MG TABLET PO SCH (21:00)
[2023-10-21] MEDS: BLOOD SUGAR DIAGNOSTIC STRIP TEST SCH (21:16)
[2023-10-21 21:38] LABS: AMMONIA < 17 uMol/L (<32)
[2023-10-22] MEDS: ASPIRIN 81MG TABLET PO SCH (09:00)
[2023-10-22 09:14] LABS: BASOPHILS % 0.6 % (0.0-2.0); EOSINOPHILS % 1.2 % (0.0-5.0); HEMATOCRIT. 33.2 % (42.0-52.0); HEMOGLOBIN. 10.8 g/dL (14.0-18.0); LYMPHOCYTES % 17.4 % (20.0-50.0); MEAN CORPUSCULAR HEMOGLOBIN 28.6 pg (28.0-32.0); MEAN CORPUSCULAR HGB CONC 32.5 g/dL (31.0-37.0); MEAN CORPUSCULAR VOLUME 87.9 fL (80.0-94.0); MEAN PLATELET VOLUME 7.8 fl (7.4-10.4); MONOCYTES % 10.4 % (2.0-8.0); NEUTROPHILS % 70.4 % (40.0-76.0); PLATELET 183 x1000/uL (130-400); RED BLOOD CELL COUNT 3.78 mill/uL (4.7-6.1); RED CELL DISTRIBUTION WIDTH 18.1 % (11.6-14.6); WHITE BLOOD COUNT 7.7 x1000/uL (4.5-11.0)
[2023-10-22 09:23] LABS: CHLORIDE 103 mEq/L (98-107); SODIUM 136 mEq/L (136-145)
[2023-10-22 09:24] LABS: CALCIUM 8.8 mg/dL (8.7-10.4); CARBON DIOXIDE 25 mEq/L (21-32)
[2023-10-22 09:29] LABS: GLUCOSE 101 mg/dL (70-105); TRIGLYCERIDE 56 mg/dL (0-150); UREA NITROGEN BLOOD 13 mg/dL (9-23)
[2023-10-22 09:30] LABS: LDL CHOLESTEROL 19 mg/dL (5-100)
[2023-10-22 09:31] LABS: ALANINE AMINOTRANSFERASE 8 IU/L (10-49); ALBUMIN 3.5 g/dL (3.2-4.8); ASPARTATE AMINOTRANSFERASE 15 IU/L (<34); BILIRUBIN DIRECT 0.2 mg/dL (<=3.0); BILIRUBIN TOTAL 0.5 mg/dL (0.1-1.0); CHOLESTEROL 108 mg/dL (<200); HDL CHOLESTEROL 66 mg/dL (>55); PROTEIN TOTAL 6.6 g/dL (6.0-8.3)
[2023-10-22 09:33] LABS: T4 FREE 1.48 ng/dL (0.89-1.76)
[2023-10-22 09:34] LABS: CREATININE 1.8 mg/dL (0.6-1.3); THYROID STIMULATING HORMONE 2.37 uIU/mL (0.55-4.78)
[2023-10-22] MEDS: CLOPIDOGREL 75MG TABLET PO SCH (09:45)
[2023-10-22] MEDS: CLONIDINE HCL 0.1MG/24HR PATCH TD SCH (09:49)
[2023-10-22] MEDS: POTASSIUM PHOSPHATE 10 MMOL in DEXT 5% WATER 246.6667 ML IV ONE (09:50)
[2023-10-22] MEDS: HYDRALAZINE 20MG/ML VIAL IV SCH (12:41)
[2023-10-22] MEDS ORDERED: NALOXONE HCL 0.4MG/ML VIAL IV PRN (14:15)
[2023-10-22 16:00] VITALS: BP 164/96; PULSE 95; RESP 18; TEMP 37.11408; O2SAT 99
[2023-10-22 16:19] VITALS: BP 164/96; PULSE 95; RESP 18; TEMP 37.1408
[2023-10-22 19:46] LABS: HEPATITIS B SURFACE ANTIGEN NEGATIVE (Negative)
[2023-10-22 20:00] VITALS: BP 179/80; PULSE 94; RESP 20; TEMP 36.55848; O2SAT 98
[2023-10-22 20:07] LABS: HEPATITIS C AB NON REACTIVE (Neg) (Negative)
[2023-10-22] MEDS: AMLODIPINE 5MG TABLET PO SCH (20:56)
[2023-10-22] MEDS ORDERED: HYDRALAZINE 20MG/ML VIAL IV NR ×2 (22:00→22:15)
[2023-10-22] MEDS: ENALAPRIL 1.25MG/ML VIAL 1ML IV SCH (22:21)
[2023-10-22 22:55] VITALS: BP 152/78; PULSE 87; RESP 20; TEMP 36.44736; O2SAT 99
[2023-10-23] MEDS: ENALAPRIL 1.25MG/ML VIAL 1ML IV SCH (00:32)
[2023-10-23 04:00] VITALS: BP 165/89; PULSE 83; RESP 18; TEMP 36.55848; O2SAT 97
[2023-10-23] MEDS: DEXT 5%/0.45% NACL 1000ML 1,000 ML IV SCH (06:23)
[2023-10-23 08:00] VITALS: BP 162/83; PULSE 73; RESP 19; TEMP 36.6696; O2SAT 100
[2023-10-23 11:02] LABS: BASOPHILS % 0.9 % (0.0-2.0); EOSINOPHILS % 1.7 % (0.0-5.0); HEMATOCRIT. 32.8 % (42.0-52.0); HEMOGLOBIN. 10.5 g/dL (14.0-18.0); LYMPHOCYTES % 22.1 % (20.0-50.0); MEAN CORPUSCULAR HEMOGLOBIN 28.6 pg (28.0-32.0); MEAN CORPUSCULAR HGB CONC 32.1 g/dL (31.0-37.0); MEAN CORPUSCULAR VOLUME 88.9 fL (80.0-94.0); MEAN PLATELET VOLUME 7.7 fl (7.4-10.4); MONOCYTES % 9.3 % (2.0-8.0); PLATELET 160 x1000/uL (130-400); RED BLOOD CELL COUNT 3.69 mill/uL (4.7-6.1); RED CELL DISTRIBUTION WIDTH 18.6 % (11.6-14.6); WHITE BLOOD COUNT 6.9 x1000/uL (4.5-11.0)
[2023-10-23 11:28] LABS: CHLORIDE 104 mEq/L (98-107); POTASSIUM 4.5 mEq/L (3.5-5.1); SODIUM 135 mEq/L (136-145)
[2023-10-23 11:29] LABS: CALCIUM 8.4 mg/dL (8.7-10.4); CARBON DIOXIDE 23 mEq/L (21-32)
[2023-10-23 11:34] LABS: GLUCOSE 90 mg/dL (70-105); UREA NITROGEN BLOOD 14 mg/dL (9-23)
[2023-10-23 11:36] LABS: PHOSPHORUS 5.2 mg/dL (2.5-4.9)
[2023-10-23 11:42] LABS: CREATININE 2.6 mg/dL (0.6-1.3)
[2023-10-23 11:52] VITALS: BP 174/86; PULSE 86; RESP 20; TEMP 36.6696; O2SAT 95
[2023-10-23 16:00] VITALS: BP 139/85; PULSE 96; RESP 18; TEMP 36.6696; O2SAT 100
[2023-10-23 20:00] VITALS: BP 164/94; PULSE 95; RESP 20; TEMP 37.00296; O2SAT 97
[2023-10-24] VITALS: BP 145/60; PULSE 82; RESP 18; TEMP 36.6696; O2SAT 97
[2023-10-24 04:00] VITALS: BP 158/100; PULSE 71; RESP 18; TEMP 36.61404; O2SAT 98
[2023-10-24 06:38] LABS: CALCIUM 8.8 mg/dL (8.7-10.4); CARBON DIOXIDE 25 mEq/L (21-32); CHLORIDE 105 mEq/L (98-107); POTASSIUM 4.1 mEq/L (3.5-5.1); SODIUM 138 mEq/L (136-145)
[2023-10-24 06:40] LABS: BASOPHILS % 0.4 % (0.0-2.0); HEMATOCRIT. 33.3 % (42.0-52.0); HEMOGLOBIN. 10.7 g/dL (14.0-18.0); LYMPHOCYTES % 22.7 % (20.0-50.0); MEAN CORPUSCULAR HEMOGLOBIN 28.3 pg (28.0-32.0); MEAN CORPUSCULAR HGB CONC 32.3 g/dL (31.0-37.0); MEAN CORPUSCULAR VOLUME 87.7 fL (80.0-94.0); MEAN PLATELET VOLUME 8.2 fl (7.4-10.4); MONOCYTES % 10.3 % (2.0-8.0); NEUTROPHILS % 62.6 % (40.0-76.0); PLATELET 154 x1000/uL (130-400); RED BLOOD CELL COUNT 3.79 mill/uL (4.7-6.1); WHITE BLOOD COUNT 6.8 x1000/uL (4.5-11.0)
[2023-10-24 06:43] LABS: CREATININE 2.8 mg/dL (0.6-1.3); GLUCOSE 107 mg/dL (70-105)
[2023-10-24 06:44] LABS: UREA NITROGEN BLOOD 22 mg/dL (9-23)
[2023-10-24 08:00] VITALS: BP 178/89; PULSE 86; RESP 18; TEMP 36.50292; O2SAT 98
[2023-10-24] MEDS: HYDRALAZINE 20MG/ML VIAL IV PRN (08:54)
[2023-10-24 12:00] VITALS: BP 178/93; PULSE 82; RESP 18; TEMP 37.11408; O2SAT 98
[2023-10-24 16:00] VITALS: BP 178/93; PULSE 81; RESP 18; TEMP 37.11408; O2SAT 98
[2023-10-24 20:00] VITALS: BP 171/79; PULSE 77; RESP 18; TEMP 36.61404; O2SAT 98
[2023-10-25] VITALS (7 sets, daily range): BP systolic 149–182; BP diastolic 88–102; PULSE 73–95; RESP 18–19; TEMP 36.22512–36.9474; O2SAT 98–100
[2023-10-25] MEDS: ACETAMINOPHEN 325MG TABLET PO PRN (09:00)
[2023-10-25] MEDS: HYDRALAZINE HCL 10MG TABLET PO NR (14:33)
[2023-10-25] MEDS: HYDRALAZINE HCL 10MG TABLET PO SCH (20:35)
[2023-10-26] VITALS (11 sets, daily range): BP systolic 110–180; BP diastolic 65–100; PULSE 68–91; RESP 16–19; TEMP 36.33624–37.00296; O2SAT 98–99
[2023-10-26] MEDS: HYDRALAZINE HCL 10MG TABLET PO NR (05:09)
== END 2023-10-26 12:00 | DRG 70 ==
LOC: ER 13:21 → EDBEDREQ 13:59 → EDBEDREQTM 13:59 → EDBEDREQSVC 13:59 → 5WST 16:48 → EDBEDREQ 16:50 → 8WST 10-22 13:51
PROVIDERS: ADMIT Preventive Medicine Clinical Informatics; ATTEND Preventive Medicine Clinical Informatics
PROC: 5A1D70Z Performance of Urinary Filtration, Intermittent, Less than 6 Hours Per Day (ICD-10-PCS; principal; 2023-10-22)
PROC: 5A1D70Z Performance of Urinary Filtration, Intermittent, Less than 6 Hours Per Day (ICD-10-PCS; 2023-10-26)
DX: G93.41 Metabolic encephalopathy (principal); G82.50 Quadriplegia, unspecified; N18.6 End stage renal disease; I13.2 Hypertensive heart and chronic kidney disease with heart failure and with stage 5 chronic kidney disease, or end stage renal disease; E87.1 Hypo-osmolality and hyponatremia; R64 Cachexia; I50.9 Heart failure, unspecified; F32.A Depression, unspecified; R53.81 Other malaise; M24.59 Contracture, other specified joint; E11.22 Type 2 diabetes mellitus with diabetic chronic kidney disease; F03.90 Unspecified dementia, unspecified severity, without behavioral disturbance, psychotic disturbance, mood disturbance, and anxiety; R62.7 Adult failure to thrive; J44.9 Chronic obstructive pulmonary disease, unspecified; K59.09 Other constipation; L89.150 Pressure ulcer of sacral region, unstageable; R13.10 Dysphagia, unspecified; Z74.01 Bed confinement status; Z99.2 Dependence on renal dialysis; I69.30 Unspecified sequelae of cerebral infarction; Z95.0 Presence of cardiac pacemaker; Z79.899 Other long term (current) drug therapy; Z68.22 Body mass index [BMI] 22.0-22.9, adult; D63.1 Anemia in chronic kidney disease
CPT/HCPCS: 36415; 70496; 70498; 70551; 71045; 80048; 80061; 80076; 80320; 82140; 82607; 82962; 83036; 83540; 83550; 83735; 84100; 84145; 84439; 84443; 84484; 85025; 85379; 85651; 86705; 87340; 90935; 92610; 93005; 93306; 93970; 97162; 97166; 97530; 99291; A6261; C1893; J0360; J1815; J3490; J7060; Q9967; G0480